=== PATIENT | female | born 1995 | race Caucasian/White ===

== ENCOUNTER → 2018-08-03 16:55 | Outpatient (CLI) | payer OTHER, SELFPAY ==
[2018-08-03 13:18] VITALS: BMI 24.3
[2018-08-03 21:55] LABS: Chlamydia Trachomatis by PCR Negative (Negative); Neisserai gonorrhoeae by PCR Negative (Negative); Probe Check PASS; Sample Adequacy Control PASS; Specimen Processing Control PASS
[2018-08-07 19:58] LABS: HPV Reflexed? NOT INDICATED
== END ==
PROVIDERS: Family Provider Family Medicine; PCP Family Medicine; Referring Provider Obstetrics & Gynecology; Visit Provider Obstetrics & Gynecology
DX: Z34.90 Encounter for supervision of normal pregnancy, unspecified, unspecified trimester (principal); Z12.4 Encounter for screening for malignant neoplasm of cervix
CPT/HCPCS: 87086; 87491; 87591; 87624; 88175; G0145

== ENCOUNTER → 2018-09-03 16:30 | Outpatient (CLI) | payer OTHER, SELFPAY ==
[2018-09-03 16:24] VITALS: BMI 24.3
[2018-09-03 17:13] LABS: Absolute Lymphocyte Count 2.16 X10^3/ul (0.83-4.51); Absolute Neutrophil Count 8.2 X10^3/uL (2.0-7.7); Basophil# 0.03 X10^3/uL; Basophil% 0.3 % (0-1); Eosinophils% 0.9 % (0-5); Hematocrit 36.8 % (37-47); Hemoglobin 12.2 g/dl (12.0-15.0); Lymphocyte # 2.16 X10^3/ul (4.0); Lymphocyte % 19.1 % (19-41); Mean Corp Hgb Conc 33.2 g/gl (32-36); Mean Corpuscular Hgb 28.5 pg (27.0-32.0); Mean Platelet Vol. 12.4 fl (6.2-12.0); Monocyte# 0.81 X10^3/uL; Monocyte% 7.2 % (0-10); Neutrophil # 8.16 X10^3/uL (2.7-7.7); Neutrophil % 72.1 % (47-70); Platelet Count 176 K/mm3 (150-450); RBC Distribution Width CV 13.4 % (11.6-14.6); RBC Distribution Width SD 41.2 fl (35.1-43.9); Red Blood Count 4.28 M/mm3 (4.2-5.4); White Blood Count 11.3 K/mm3 (4.4-11.0)
[2018-09-03 17:14] LABS: POSITIVE COUNT NO; POSITIVE DIFFERENTIAL NO; POSITIVE MORPHOLOGY NO
[2018-09-03 18:16] LABS: HIV - WCH Non-Reactive (Nonreactive); Rubella IgG 52.3 IU/mL
[2018-09-06 11:10] LABS: HEPATITIS B SURFACE AG Negative (Negative)
[2018-09-09 22:01] LABS: Rapid Plasmin Reagin (RPR) NONREACTIVE (NONREACTIVE)
== END ==
PROVIDERS: Family Provider Family Medicine; PCP Family Medicine; Referring Provider Obstetrics & Gynecology; Visit Provider Obstetrics & Gynecology
DX: Z34.82 Encounter for supervision of other normal pregnancy, second trimester (principal)
CPT/HCPCS: 36415; 85025; 86592; 86703; 86762; 86850; 86900; 87340

== ENCOUNTER → 2018-11-25 | Outpatient (CLI) | payer OTHER, SELFPAY ==
[2018-11-25 15:39] VITALS: BMI 24.3
[2018-11-25 16:24] LABS: Absolute Lymphocyte Count 1.95 X10^3/ul (0.83-4.51); Absolute Neutrophil Count 8.5 X10^3/uL (2.0-7.7); Basophil# 0.02 X10^3/uL; Basophil% 0.2 % (0-1); Eosinophil# 0.09 X10^3/uL; Eosinophils% 0.8 % (0-5); Hematocrit 34.4 % (37-47); Hemoglobin 11.4 g/dl (12.0-15.0); Lymphocyte # 1.95 X10^3/ul (4.0); Mean Corp Hgb Conc 33.1 g/gl (32-36); Mean Corpuscular Hgb 29.5 pg (27.0-32.0); Mean Corpuscular Volume 88.9 fL (81-99); Mean Platelet Vol. 12.6 fl (6.2-12.0); Monocyte# 0.87 X10^3/uL; Monocyte% 7.6 % (0-10); Platelet Count 150 K/mm3 (150-450); RBC Distribution Width CV 14.2 % (11.6-14.6); RBC Distribution Width SD 45.7 fl (35.1-43.9); Red Blood Count 3.87 M/mm3 (4.2-5.4); White Blood Count 11.5 K/mm3 (4.4-11.0)
[2018-11-25 16:25] LABS: POSITIVE COUNT NO; POSITIVE DIFFERENTIAL NO; POSITIVE MORPHOLOGY NO
[2018-11-25 16:52] LABS: ALB/GLOB Ratio 0.9 RATIO (0.9-2.4); AST(SGOT) 18 U/L (15-37); Alanine Aminotransfer ALT/SGPT 25 U/L (13-56); Alkaline Phosphatase 68 U/L (45-117); Anion Gap 5 (5-15); BUN 10 mg/dL (7-18); BUN/Creat Ratio 14.1 RATIO (10-20); Calcium,Total 8.8 mg/dL (8.5-10.1); Chloride 104 mmol/L (98-107); Creatinine, Serum 0.71 mg/dL (0.55-1.02); EST Glomerular Filtration Rate 108 mL/min (>60); Est Glom Filt Rate - Afr Amer 130 mL/min (>60); Globulin 3.5 g/dL (2.2-4.2); Glucose 83 mg/dL (74-106); Potassium 3.8 mmol/L (3.5-5.1); Protein, Total 6.5 g/dL (6.4-8.2); Sodium Level 134 mmol/L (136-145)
[2018-11-25 19:00] LABS: Protein, Urine (Random) < 6.0 mg/dL (<11.9); Protein:Creat Ratio 249 mg/g CRE (0-200)
== END | disposition home or self-care (01) ==
PROVIDERS: Family Provider Family Medicine; PCP Family Medicine; Referring Provider Nurse Practitioner Women's Health; Visit Provider Nurse Practitioner Women's Health
DX: O16.2 Unspecified maternal hypertension, second trimester (principal); Z3A.00 Weeks of gestation of pregnancy not specified
CPT/HCPCS: 36415; 80053; 82570; 84156; 85025

== ENCOUNTER → 2018-12-16 | Outpatient (CLI) | payer OTHER, SELFPAY ==
[2018-12-16 16:31] VITALS: BMI 24.3
--- NOTE | 2018-12-16 16:41 | EKG12_ITS ---
Test Reason : HIGH BP, Blood Pressure : / mmHG Vent. Rate : 078 BPM Atrial Rate : 078 BPM P-R Int : 122 ms QRS Dur : 138 ms QT Int : 410 ms P-R-T Axes : -15 057 -07 degrees QTc Int : 467 ms Sinus rhythm with Premature atrial complexes and Premature ventricular complexes or Fusion complexes Right bundle branch block T wave abnormality, consider inferior ischemia Abnormal ECG Confirmed by RICHMOND RODRIGES ([id number]), pictures editor ANA LUISA BAR ([id number]) on 12/22/2018 11:45:14 AM Referred By: Melida Alvarez Confirmed By:NORMA RODRIGES
[2018-12-16 17:14] LABS: Absolute Lymphocyte Count 1.51 X10^3/ul (0.83-4.51); Absolute Neutrophil Count 9.3 X10^3/uL (2.0-7.7); Basophil# 0.02 X10^3/uL; Basophil% 0.2 % (0-1); Eosinophil# 0.17 X10^3/uL; Eosinophils% 1.4 % (0-5); Hematocrit 35.3 % (37-47); Hemoglobin 11.7 g/dl (12.0-15.0); Lymphocyte # 1.51 X10^3/ul (4.0); Lymphocyte % 12.8 % (19-41); Mean Corp Hgb Conc 33.1 g/gl (32-36); Mean Corpuscular Hgb 29.1 pg (27.0-32.0); Mean Corpuscular Volume 87.8 fL (81-99); Mean Platelet Vol. 12.7 fl (6.2-12.0); Monocyte# 0.72 X10^3/uL; Monocyte% 6.1 % (0-10); Neutrophil # 9.27 X10^3/uL (2.7-7.7); Neutrophil % 78.7 % (47-70); POSITIVE COUNT NO; POSITIVE DIFFERENTIAL NO; POSITIVE MORPHOLOGY NO; Platelet Count 159 K/mm3 (150-450); RBC Distribution Width CV 13.5 % (11.6-14.6); RBC Distribution Width SD 42.3 fl (35.1-43.9); Red Blood Count 4.02 M/mm3 (4.2-5.4); White Blood Count 11.8 K/mm3 (4.4-11.0)
[2018-12-16 17:52] LABS: Glucose Challenge Gest 1H 50g 129 mg/dL (70-140)
== END | disposition home or self-care (01) ==
LOC: LAB 16:37
PROVIDERS: Family Provider Family Medicine; PCP Family Medicine; Referring Provider Obstetrics & Gynecology; Visit Provider Obstetrics & Gynecology
DX: O16.2 Unspecified maternal hypertension, second trimester (principal); Z3A.28 28 weeks gestation of pregnancy
CPT/HCPCS: 36415; 82950; 85025; 93005

== ENCOUNTER → 2019-01-14 | Outpatient (CLI) | payer OTHER, SELFPAY ==
[2018-12-16 16:31] VITALS: BMI 24.3
[2019-01-12 15:03] VITALS: BMI 29.2
--- NOTE | 2019-01-14 13:57 | US_ITS ---
STUDY: SECOND AND THIRD TRIMESTER OBSTETRICAL ULTRASOUND - LIMITED REASON FOR EXAM: Female, 23 years old. Growth PRIOR ULTRASOUND: None. TECHNIQUE: Transabdominal ultrasound evaluation was performed. FINDINGS: There is a single intrauterine fetus. The fetus is in a cephalic presentation. There is demonstrated cardiac activity with a heart rate of 144 bpm. There is a normal amniotic fluid volume. The largest amniotic fluid pocket measures 2.4 cm. The amniotic fluid index (FAISAL) is 8.04 cm. The placenta is posterior in location and is not low lying. There are Grade 0 placental changes. The cervix is closed and measures 4.8 cm in length. BIOMETRY: BPD: 8.32 cm: 33 weeks, 4 days HC: 31.14 cm: 34 weeks, 6 days AC: 29.38 cm: 33 weeks, 3 days FL: 6.21 cm: 32 weeks, 2 days Age by LMP: 32 weeks, 3 days. SUSANA by LMP: 03/08/2019. age by current US: 33 weeks, 4 days. SUSANA by current US: 02/28/2019. Estimated weight: 2138 grams, +/- 312 grams, 64 percentile. US/OB Limited With Biometrics IMPRESSION: Single live intrauterine gestation at approximately 33 weeks and 4 days based on the current ultrasound. Electronically Signed: Jacob Montero, at 15:47 EDT Tel , Service support ,
== END | disposition home or self-care (01) ==
LOC: OPUS 13:56
PROVIDERS: Family Provider Family Medicine; PCP Family Medicine; Referring Provider Obstetrics & Gynecology; Visit Provider Obstetrics & Gynecology
DX: Z34.93 Encounter for supervision of normal pregnancy, unspecified, third trimester (principal)
CPT/HCPCS: 76816

== ENCOUNTER → 2019-01-21 | Outpatient (CLI) | payer OTHER, SELFPAY ==
[2018-12-16 16:31] VITALS: BMI 24.3
[2019-01-14 15:03] VITALS: BMI 29.2
--- NOTE | 2019-01-21 13:58 | US_ITS ---
HISTORY: FAISAL only. Hypertension. No biometrics. 25 images. Comparison study was from January 14, 2019. Findings: The cervix is closed at 5.2 cm. Presentation is cephalic. Placenta is posterior fundal. heart motion is detected by M-mode imaging at 123 bpm. FAISAL is 14.6 cm. US/OB Limited (No Biometrics) IMPRESSION: Single living intrauterine gestation. Adequate FAISAL. Cephalic presentation. at 0024 Reported and signed by: Bryce Gutierrez MD Electronically Signed: Bryce Gutierrez MD at 0:23 EDT Tel , Service support ,
== END | disposition home or self-care (01) ==
PROVIDERS: Family Provider Family Medicine; PCP Family Medicine; Referring Provider Obstetrics & Gynecology; Visit Provider Obstetrics & Gynecology
DX: O16.9 Unspecified maternal hypertension, unspecified trimester (principal); Z3A.00 Weeks of gestation of pregnancy not specified
CPT/HCPCS: 76815

== ENCOUNTER → 2019-01-28 | Outpatient (CLI) | payer OTHER, SELFPAY ==
[2018-12-16 16:31] VITALS: BMI 24.3
[2019-01-21 15:11] VITALS: BMI 29.2
--- NOTE | 2019-01-28 13:30 | US_ITS ---
STUDY: SECOND AND THIRD TRIMESTER OBSTETRICAL ULTRASOUND - LIMITED REASON FOR EXAM: Female, 24 years old. Evaluation of well-being. PRIOR ULTRASOUND: January 21, 2019 TECHNIQUE: Transabdominal real-time exam with hardin scale image documentation. TECHNICAL QUALITY: Adequate. FINDINGS: There is a single intrauterine fetus. The fetus is in a cephalic presentation. There is demonstrated cardiac activity with a heart rate of 147 bpm. There is a normal amniotic fluid volume. The largest amniotic fluid pocket measures 5.4 cm. The amniotic fluid index (FAISAL) is 15.9 cm. The placenta is posterior and not low-lying. There are Grade 2 placental changes. The cervix measures 3 cm in length. Age by LMP: 34 weeks, 3 days. SUSANA by LMP: 03/08/2019. US/OB Limited (No Biometrics) IMPRESSION: Amniotic fluid index of 15.9 cm. Prior amniotic fluid index of 14.6. Single fetus in cephalic presentation with a heart rate of 147 bpm. Grade 2, posterior low-lying placenta with a cervical length of 3 cm Electronically Signed: Daphney Shelby MD at 22:12 EDT , Service support ,
== END | disposition home or self-care (01) ==
PROVIDERS: Family Provider Family Medicine; PCP Family Medicine; Referring Provider Obstetrics & Gynecology; Visit Provider Obstetrics & Gynecology
DX: Z36.89 Encounter for other specified antenatal screening (principal)
CPT/HCPCS: 76815

== ENCOUNTER → 2019-02-04 | Outpatient (CLI) | payer OTHER, SELFPAY ==
[2018-12-16 16:31] VITALS: BMI 24.3
[2019-02-04 13:21] VITALS: BMI 29.2
--- NOTE | 2019-02-04 13:59 | US_ITS ---
STUDY: SECOND AND THIRD TRIMESTER OBSTETRICAL ULTRASOUND - LIMITED REASON FOR EXAM: Female, 24 years old. FAISAL LMP: 06/01/2018 PRIOR ULTRASOUND: 01/28/2019 TECHNIQUE: Transabdominal TECHNICAL QUALITY: Adequate. FINDINGS: There is a single intrauterine fetus. The fetus is in a cephalic presentation. There is demonstrated cardiac activity with a heart rate of 140 bpm. There is a normal amniotic fluid volume. The largest amniotic fluid pocket measures 3.9 cm. The amniotic fluid index (FAISAL) is 11.2 cm. The placenta is posterior in location and is not low lying. There are Grade 2 placental changes. The cervix measures 5.0 cm in length. BIOMETRY: Not performed Age by LMP: 35 weeks, 3 days. SUSANA by LMP: 03/08/2019. age by prior US: 36 weeks, 4 days. SUSANA by prior US: 02/28/2019. US/OB Limited (No Biometrics) IMPRESSION: Cervix is closed. Positive cardiac activity. Normal amniotic fluid volume. Normal placenta. Electronically Signed: Jmaie Parker MD at 17:29 EDT Tel , Service support ,
== END | disposition home or self-care (01) ==
LOC: OPUS 13:55
PROVIDERS: Family Provider Family Medicine; PCP Family Medicine; Referring Provider Obstetrics & Gynecology; Visit Provider Obstetrics & Gynecology
DX: Z36.89 Encounter for other specified antenatal screening (principal)
CPT/HCPCS: 76815

== ENCOUNTER → 2019-02-11 | Outpatient (CLI) | payer OTHER, SELFPAY ==
[2018-12-16 16:31] VITALS: BMI 24.3
[2019-02-11 13:16] VITALS: BMI 31.0
--- NOTE | 2019-02-11 14:14 | US_ITS ---
STUDY: SECOND AND THIRD TRIMESTER OBSTETRICAL ULTRASOUND - LIMITED REASON FOR EXAM: Female, 24 years old. Evaluation for amniotic fluid index. PRIOR ULTRASOUND: February 04, 2019 TECHNIQUE: Transabdominal real-time exam with hardin scale image documentation. TECHNICAL QUALITY: Adequate. FINDINGS: There is a single intrauterine fetus. The fetus is in a cephalic presentation. There is demonstrated cardiac activity with a heart rate of 139 bpm. There is a normal amniotic fluid volume. The largest amniotic fluid pocket measures 6.1 cm. The amniotic fluid index (FAISAL) is 16.1 cm. The placenta is posterior and not low lying. There are Grade 2 placental changes. The cervix is not visualized. US/OB Limited (No Biometrics) IMPRESSION: Amniotic fluid index of 16.1 cm. Electronically Signed: Daphney Shelby MD at 19:24 EDT , Service support ,
== END | disposition home or self-care (01) ==
LOC: OPUS 14:11
PROVIDERS: Family Provider Family Medicine; PCP Family Medicine; Referring Provider Obstetrics & Gynecology; Visit Provider Obstetrics & Gynecology
DX: Z34.90 Encounter for supervision of normal pregnancy, unspecified, unspecified trimester (principal)
CPT/HCPCS: 76815; 87081

== ENCOUNTER → 2019-02-16 | Outpatient (CLI) | payer OTHER, SELFPAY ==
[2018-12-16 16:31] VITALS: BMI 24.3
[2019-02-11 13:16] VITALS: BMI 31.0
--- NOTE | 2019-02-16 14:02 | US_ITS ---
STUDY: SECOND AND THIRD TRIMESTER OBSTETRICAL ULTRASOUND-Limited REASON FOR EXAM: Female, 24 years old. Routine survey. LMP: Unknown. TECHNIQUE: Transabdominal TECHNICAL QUALITY: Adequate. PRIOR ULTRASOUND: None. FINDINGS: There is a single intrauterine fetus. The fetus is in a cephalic presentation. There is demonstrated cardiac activity with a heart rate of 128 bpm. There is a normal amniotic fluid volume. The largest amniotic fluid pocket measures 5.5 cm. The amniotic fluid index (FAISAL) is 16 cm. The placenta is posterior in location and is not low lying. There are Grade 2 placental changes. The cervix measures 2.1 cm in length. The bilateral adnexal regions are normal. BIOMETRY: BPD: 9.4 cm: 38 weeks, 1 days HC: 34.5 cm: 40 weeks, 0 days AC: 34.5 cm: 38 weeks, 3 days FL: 7.4 cm: 38 weeks, 0 days age by current US: 38 weeks, 5 days. SUSANA by current US: 02/25/2019. Estimated weight: 3493 grams, +/- 510 grams, 87 %. age by prior US: 38 weeks, 2 days. SUSANA by prior US: 02/28/2019. Age by LMP: 37 weeks, 1 days. SUSANA by LMP: 03/08/2019. US/OB Limited With Biometrics IMPRESSION: Single live intrauterine at 38 weeks, 5 days by current ultrasound with SUSANA of 02/25/2019. Heart rate at 128 bpm. Normal growth noted since the previous study, no suspicious sonographic findings Electronically Signed: Michael Dunn MD at 15:07 EDT , Service support ,
== END | disposition home or self-care (01) ==
LOC: OPUS 14:01
PROVIDERS: Family Provider Family Medicine; PCP Family Medicine; Referring Provider Obstetrics & Gynecology; Visit Provider Obstetrics & Gynecology
DX: O16.9 Unspecified maternal hypertension, unspecified trimester (principal); Z3A.00 Weeks of gestation of pregnancy not specified
CPT/HCPCS: 76816

== ENCOUNTER → 2019-02-18 | Outpatient (CLI) | payer OTHER, SELFPAY ==
[2019-01-28 14:24] VITALS: BMI 29.2
[2019-02-16 14:35] VITALS: BMI 31.0
--- NOTE | 2019-02-18 15:17 | ECHOD_ITS ---
Reason For Study: ABN EKG Procedure This was a 2D Doppler, Color Flow transthoracic echocardiogram. Exam performed in department. Left Ventricle Normal size and thickness. The estimated ejection fraction is 55 %. No evidence for diastolic dysfunction. No regional wall motion abnormalities noted. Right Ventricle Normal RV size. Normal systolic function. Atria Normal left atrium. Normal right atrium. Mitral Valve There is no mitral valve stenosis. No mitral valve insufficiency. Tricuspid Valve There is no tricuspid stenosis. Mild to moderate (1-2+) tricuspid valve insufficiency. Pulmonary artery systolic pressure is 30 mmHg. Aortic Valve Trisinus/trileaflet aortic valve. There is no aortic stenosis. Trivial aortic valve insufficiency. Pulmonic Valve There is no pulmonic valvular stenosis. No pulmonic valve insufficiency. Great Vessels Normal aortic root. Pericardium/Pleural No pericardial effusion. MMode/2D Measurements & Calculations LVIDd: 5.1 cm IVSd: 1.00 cm Ao root diam: 2.8 cm LVIDs: 3.5 cm LVPWd: 1.00 cm RVDd: 3.6 cm FS: 32.0 % LAV(MOD-bp): 46.2 ml LVAd ap4: 38.8 cm2 SV(MOD-sp4): 87.7 ml LAV(MOD-bp) Indexed: 22.8 ml/m2 EDV(MOD-sp4): 137.9 ml LAV(MOD-sp2): 40.8 ml EDV(sp4-el): 143.2 ml LAV(MOD-sp4): 46.8 ml LVAs ap4: 20.9 cm2 ESV(MOD-sp4): 50.3 ml ESV(sp4-el): 50.9 ml EF(MOD-sp4): 63.6 % EF(sp4-el): 64.4 % SV(sp4-el): 92.3 ml LA A4 area: 16.7 cm2 LA dimension(2D): 3.7 cm RA A4 area: 11.1 cm2 Time Measurements MV dec time: 0.26 sec Doppler Measurements & Calculations MV E max delmer: 87.3 cm/sec Lat Peak E' Delmer: 13.4 cm/sec Med Peak E' Delmer: 11.0 cm/sec MV A max delmer: 61.6 cm/sec E/E' lat: 6.5 E/E' med: 8.0 MV E/A: 1.4 Ao V2 max: 184.0 cm/sec LV V1 max: 116.2 cm/sec TR max delmer: 248.7 cm/sec Ao max P.6 mmHg LV V1 max P.4 mmHg TR max P.8 mmHg Interpretation Summary The estimated ejection fraction is 55 %. No evidence for diastolic dysfunction. Mild to moderate (1-2+) tricuspid valve insufficiency. Pulmonary artery systolic pressure is 30 mmHg. Trivial aortic valve insufficiency. Ordering Physician: Natanael Cee Referring Physician: YUDY AGEE Performed By: Yvonne Salgado, SANDRA, RVT
== END | disposition home or self-care (01) ==
LOC: CVS 15:16
PROVIDERS: Family Provider Family Medicine; PCP Family Medicine; Referring Provider Specialist; Visit Provider Specialist
DX: R94.31 Abnormal electrocardiogram [ECG] [EKG] (principal)
CPT/HCPCS: 93306

== ENCOUNTER 2019-02-22 07:00 | Inpatient (IN) | payer OTHER, SELFPAY ==
[2019-02-04 13:21] VITALS: BMI 29.2
[2019-02-16 14:35] VITALS: BMI 31.0
[2019-02-22 10:41] VITALS: BMI 32.3
[2019-02-22] MEDS: Lactated Ringers 1,000 ML 50 ML IV ×2 (13:25→19:08)
[2019-02-22 13:44] LABS: Absolute Lymphocyte Count 1.51 X10^3/uL (0.83-4.51); Absolute Neutrophil Count 6.2 X10^3/uL (2.0-7.7); Basophil# 0.02 X10^3/uL; Basophil% 0.2 % (0-1); Eosinophil# 0.08 X10^3/uL; Eosinophils% 0.9 % (0-5); Hematocrit 36.6 % (37-47); Hemoglobin 12.4 g/dL (12.0-15.0); Lymphocyte # 1.51 X10^3/ul (4.0); Lymphocyte % 17.8 % (19-41); Mean Corp Hgb Conc 33.9 g/dL (32-36); Mean Corpuscular Hgb 29.7 pg (27.0-32.0); Mean Corpuscular Volume 87.8 fL (81-99); Mean Platelet Vol. 14.1 fl (6.2-12.0); Monocyte# 0.63 X10^3/uL; Monocyte% 7.4 % (0-10); NRBC Flagged by Analyzer 0 % (0-5); Neutrophil # 6.21 X10^3/uL (2.7-7.7); Neutrophil % 73.2 % (47-70); Platelet Count 112 K/mm3 (150-450); RBC Distribution Width SD 41.3 fl (35.1-43.9); Red Blood Count 4.17 M/mm3 (4.2-5.4); White Blood Count 8.5 K/mm3 (4.4-11.0)
[2019-02-22] MEDS: Oxytocin 30 units/NS 500 ml 30 UNITS/500 ML IV.SOLN IV (13:51)
[2019-02-22] MEDS: 0.9% Normal Saline 100 ML IV.SOLN. INTRA-UTER (15:08)
[2019-02-22 19:02] LABS: Platelet Count 120 K/mm3 (150-450)
[2019-02-22] MEDS: fentaNYL-bupivacaine (epidural) 100 ML BAG EPIDURAL ×2 (19:30→22:56)
--- NOTE | 2019-02-23 03:02 | PCM.HPOB.BLA ---
- Problem List (1) Abnormal EKG Status: Acute Comment: s/p cardiology consult, echo planned (2) Hypertension affecting Status: Acute Qualifiers: Comment: 11/25/18 Pre E labs nl, started around 20 weeks, labetalol 100 mg bid, weekly nsts and faisal after 32, plan IOL 38 weeks. growth q 4 weeks. FAISAL and growth normal (3) Status: Acute Qualifiers: Comment: carrier screening declined, NIPT- low risk. afp declined. anatomy scan ordered with normal results (4) Supervision of normal Status: Acute Qualifiers: Comment: PRR SUSANA 03/08/19 Esdras, gender surprise History and Physical Date of Admission: 02/22/19 Intake Vital Signs 02/16/19 Body Mass Index (BMI) 31.0 02/16/19 Height 5 ft 7 in 02/16/19 Weight: 201 lb 02/16/19 Body Mass Index (BMI) 31.4 02/16/19 Blood Pressure 134/70 H Intake Visit Reasons: 37 WEEK OB/NST Chief Complaint: et ob,nst Identification Technician Required: No Is patient in pain?: No Allergies codeine Allergy (Intermediate, Verified 02/16/19 14:34) cramps Sulfa (Sulfonamide Antibiotics) Allergy (Mild, Verified 02/16/19 14:34) Other Medications vitamin,calcium,fsugaijb-jqdb-xycxk acid tablet 1 tab PO QDAY 03/16/18 [History Confirmed 02/16/19] labetalol 100 mg tablet 100 mg PO BID #60 tab 12/16/18 [Rx Confirmed 02/16/19] Last Menstral Period: 02/21/18 Zika: Zika virus screening: Negative : No PFSH PFSH Medical History Hypertension affecting (Acute) Surgical History History of removal of cyst (Resolved ~2013) Family History Mother Hyperlipidemia Father Hyperlipidemia Social History (Updated 02/17/19 @ 18:29 by Melida Alvarez MD) Smoking Status: Never smoker alcohol intake: never substance use type: does not use caffeine: No what type of physical activity do you participate in: none seatbelt use: always do you feel safe at home: Yes additional social history: Esdras- [employer] 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 plan IOL at 38 weeks if no spontaneous labor due to hypertension. OB Visit SUSANA Calculator Estimated Delivery Date Method Current WG Current Estimate 03/08/19 LMP (Certain) 37w 2d Expected Delivery Route/Plan Specific Issue/Plans flu vaccine: no tdap vaccine: given rhogam: na LARC form signed: howard labor support person: Esdras pain management: epidural cut cord/dad catch: cord : yes PP control planned: condom special requests: [] Initial Weight: 155 lb Date EGA Weight BP Urine Prot Glucose FHR FuHt Pres Mov CTX Dilation Effaced St Visit Note 09/03/18 13w 3d 158 lb (+3 lb) 118/68 Negative Negative 145 no vb cramping nipt today 09/30/18 17w 2d 165 lb (+10 lb) 126/72 Negative Negative 141 No VB, LOF 10/29/18 21w 3d 170 lb (+15 lb) 150/60 140 22 no vb lofgood fm no regular ctx 11/25/18 25w 2d 179 lb 4 oz (+24 lb 4 oz) 144/80 Negative Negative 162 25 Active absent NO VB, LOF, headache. Good FM. 12/16/18 28w 2d 183 lb (+28 lb) 156/80 136/64 Negative Negative 140 29 reviewed home bps start labetalol 100mgbid no vb lof good fm no regualr ctx reviewed bp precautions and preeclampsia precautions 12/24/18 29w 3d 184 lb (+29 lb) 140/72 Negative Negative 140 30 Active no vb lof good fm n oregular ctx, bps well controlled 01/14/19 32w 3d 189 lb 6 oz (+34 lb 6 oz) 142/78 Negative Negative 130 32 Active no vb lof good fm no regular ctx. bps all within normal limit at home. s/p cardio consult echo planned 01/21/19 33w 3d 190 lb 4 oz (+35 lb 4 oz) 136/70 Negative Negative 130 Active No VB, LOF. Doing well. No headaches 01/28/19 34w 3d 195 lb (+40 lb) 112/72 Negative Negative 150 34 Active Doing well. No VB, LOF. Good FM. No headaches 02/04/19 35w 3d 195 lb (+40 lb) 116/82 130 Active no vb lof good fm no regular ctx 02/11/19 36w 3d 198 lb (+43 lb) 138/80 148/84 Negative Negative 130 Visit Notes Visit Date: 02/11/19 ??No visit notes to display Visit Date: 02/04/19 ??no vb lof good fm no regular ctx ??Melida Alvarez MD on 02/04/19 Visit Date: 01/28/19 ??Doing well. No VB, LOF. Good FM. No headaches ??CARLOS Olvera on 01/28/19 Visit Date: 01/21/19 ??No VB, LOF. Doing well. No headaches ??CARLOS Olvera on 01/21/19 Visit Date: 01/14/19 ??no vb lof good fm no regular ctx. bps all within normal limit at home. s/p cardio consult echo planned ??Melida Alvarez MD on 01/14/19 Visit Date: 12/24/18 ??no vb lof good fm n oregular ctx, bps well controlled ??Melida Alvarez MD on 12/24/18 Visit Date: 12/16/18 ??reviewed home bps start labetalol 100mgbid no vb lof good fm no regualr ctx reviewed bp precautions and preeclampsia precautions ??Melida Alvarez MD on 12/16/18 Visit Date: 11/25/18 ??NO VB, LOF, headache. Good FM. ??CARLOS Olvera on 11/25/18 Visit Date: 10/29/18 ??no vb lofgood fm no regular ctx ??Melida Alvarez MD on 10/29/18 Visit Date: 09/30/18 ??No VB, LOF ??CARLOS Olvera on 09/30/18 Visit Date: 09/03/18 ??no vb cramping nipt today ??Melida Alvarez MD on 09/03/18 ACOG First Trimester First Trimester: Desire for , Alcohol, Tobacco Cessation, Illicit/Recreational Drug/Substance Use, Intimate Partner Violence, Barriers to care, Unstable Housing, Communication Barriers, Environmental/Work Hazards, Anticipated Course of Care, Toxoplasmosis Precations, Use of Any medications, Sexual activity, Exercise, Dental Care, Sauna/Hot tub use, Seat Belt use, Childbirth classes/Hospital facilities, , Travel, Indications for US and Screening for Aneuploidy Diagnostics Diagnostics Labs Obstetrics Ultrasound 02/16/19 Details: HIV: Urine Culture: Sequential Screen: NIPT Screen: Results [id number] Office Urine Glucose Negative Last Edit by Barb Arriaza on 02/16/19 14:40 Office Urine Protein Negative Last Edit by Barb Arriaza on 02/16/19 14:40 Assessment & Plan Problems 1. Abnormal EKG R94.31 2. Hypertension affecting in third trimester O16.3 3. 35 weeks gestation of Z3A.35 4. Encounter for supervision of normal first in third trimester Z34.03 Plan movement and labor precautions reviewed. ACOG trimester education reviewed and updated. see problem list details for updated plan management information and see below for orders placed at this visit. GA appropriate handout given. plan IOL pitocin and jacinto bulb, epi PRN Orders Orders: OB NST 02/16/19 O16.3 POC Urinalysis 2 Dip (Clinic) 02/16/19 Coding Level of Care Code OB Routine Diagnoses Abnormal EKG R94.31 Hypertension affecting in third trimester O16.3 ??Trimester: third trimester 35 weeks gestation of Z3A.35 ??Weeks of gestation: 35 weeks Encounter for supervision of normal first in third trimester Z34.03 ??Normal : normal first ??Trimester: third trimester UPDATE- I have seen the patient and performed any clinically relevant updates to the history and physical exam. Melida Alvarez MD
--- NOTE | 2019-02-23 03:02 | PCM.PN.BLA ---
Progress Note fht 140 moderate variability reactive no decelerations category I tracing [place]: regular patient comfortable with epidural arom clear fluid a/p exp management pit per protocol
[2019-02-23] MEDS: Lactated Ringers 1,000 ML 50 ML IV ×2 (03:03→07:06)
[2019-02-23] MEDS: fentaNYL-bupivacaine (epidural) 100 ML BAG EPIDURAL ×2 (03:46→08:44)
[2019-02-23] MEDS: Labetalol 100 MG Tablet PO ×2 (08:03→22:07)
[2019-02-23] MEDS: Ondansetron 4 MG/2 ML Vial IV (09:24)
[2019-02-23] MEDS: Oxytocin 30 units/NS 500 ml 30 UNITS/500 ML IV.SOLN 334 UNITS IV (10:38)
--- NOTE | 2019-02-23 10:45 | PCM.OPRPT ---
Problem List (1) Abnormal EKG Status: Acute Comment: s/p cardiology consult, echo planned (2) Hypertension affecting Status: Acute Qualifiers: Comment: 11/25/18 Pre E labs nl, started around 20 weeks, labetalol 100 mg bid, weekly nsts and faisal after 32, plan IOL 38 weeks. growth q 4 weeks. FAISAL and growth normal (3) Status: Acute Qualifiers: Comment: carrier screening declined, NIPT- low risk. afp declined. anatomy scan ordered with normal results (4) Supervision of normal Status: Acute Qualifiers: Comment: PRR SUSANA 03/08/19 Esdras, gender surprise Vaginal Delivery Maternal Presentation: Medically Indicated Induction iol chtn 38 weeks Method of Induction: Pitocin, Ricardo Bulb Amniotic Membrane Rupture Type: Artificial Amniotic Fluid Description: Clear Final SUSANA: 03/08/19 Gestational age: 38 Weeks and 1 Days Date of Procedure: 02/23/19 Pre-Operative Diagnosis: iol chtn Post-Operative Diagnosis: same Surgery/ Procedure Performed: Spontaneous Vaginal Delivery Type of Anesthesia: Epidural Description of Procedure: Patient began pushing and delivered the head in the ELLEN presentation. The head was delivered atraumatically . The anterior and posterior shoulders delivered without complication followed by the rest of the infant and the infant was placed on the maternal abdomen. Delayed cord clamping was employed for approximately 60 seconds. Cord was clamped and cut and gentle traction was applied to the cord and the placenta delivered spontaneously immediately following it was noted to be intact with three-vessel cord. The perineum and vagina were inspected and noted to have a small first-degree perineal laceration repaired in the usual fashion with 3-0 Vicryl repeat. EBL was 200 cc. Patient and tolerated delivery well. Presentation: ELLEN Placental Delivery Description: Spontaneous Placenta Disposition: [facility] Cord Vessel Description: 3 Vessels Cord Entanglement: None Estimated Blood Loss: 200 Infant A gender: Male Episiotomy Description: None Laceration: Perineal Extension/lac, 1st degree Medications given after delivery: IV Pitocin Complications: None
[2019-02-23] MEDS: Oxytocin 30 units/NS 500 ml 30 UNITS/500 ML IV.SOLN 167 UNITS IV (11:08)
[2019-02-23] MEDS: Naproxen 250 MG Tablet 500 MG PO (11:34)
[2019-02-23] MEDS: 0.9% Saline Lock 10 ML Syringe IV (12:18)
[2019-02-23 12:57] LABS: Hematocrit 38.7 % (37-47); Hemoglobin 12.9 g/dL (12.0-15.0); Mean Corp Hgb Conc 33.3 g/dL (32-36); Mean Corpuscular Hgb 29.3 pg (27.0-32.0); Mean Platelet Vol. 13.8 fl (6.2-12.0); Platelet Count 124 K/mm3 (150-450); RBC Distribution Width CV 12.8 % (11.6-14.6); RBC Distribution Width SD 41.3 fl (35.1-43.9); White Blood Count 23.1 K/mm3 (4.4-11.0)
[2019-02-23 15:30] VITALS: BP 135/85; PULSE 70; RESP 18; TEMP 37.1; O2SAT 96
--- NOTE | 2019-02-23 20:02 | NURSING ---
Called anesthesia about removing epidural catheter due to low platelets. Labs reviewed. Cleared to removed epidural catheter as long as no bleeding from site. Removed epidural. Blue catheter tip intact. Patient tolerated well. Patient ambulated to bathroom to void, assistance x1. Gait steady. Bed linens changed.
[2019-02-23 20:30] VITALS: BP 137/87; PULSE 80; RESP 18; TEMP 36.4; O2SAT 97
[2019-02-23 22:07] VITALS: BP 123/70
[2019-02-24 01:00] VITALS: BP 130/70; PULSE 72; RESP 18; TEMP 36.4; O2SAT 100
[2019-02-24 05:10] VITALS: BP 124/71; PULSE 78; RESP 18; TEMP 36; O2SAT 97
[2019-02-24 08:00] VITALS: BP 123/65; PULSE 71; RESP 16; TEMP 36.6; O2SAT 97
--- NOTE | 2019-02-24 08:00 | PCM.PN.OB ---
Subjective: doing well no complaints pain controlled no CP SOB N V ambulating well tolerating po lochia moderate, going well - Physical Exam General: Alert, Oriented x3 Abdomen: Soft, Non Tender, - - FF below U Vital Signs Temp Pulse Resp BP Pulse Ox 96.8 F L 78 18 124/71 H 97 02/24/19 05:10 02/24/19 05:10 02/24/19 05:10 02/24/19 05:10 02/24/19 05:10 Oxygen Delivery Method Room Air Weight: 206 lb 2.115 oz Body Mass Index (BMI) 32.3 Intake and Output for Last 24 Hours 02/22/19 02/23/19 02/24/19 23:59 23:59 23:59 Intake Total 1700 / 1700 2100 / 2100 Output Total 600 / 600 2425 / 2425 Balance 1100 / 1100 -325 / -325 Laboratory Tests Past 24 Hrs 02/23/19 12:45 WBC 23.1 H RBC 4.40 Hgb 12.9 Hct 38.7 MCV 88.0 MCH 29.3 MCHC 33.3 RDW Std Deviation 41.3 RDW Coeff of Cecy 12.8 Plt Count 124 L MPV 13.8 H Medical Necessity - Tobacco Use Smoking Status: Never smoker Assessment/Plan All Active Problems (Last Reviewed 02/16/19 @ 14:35 by Barb Arriaza) Abnormal EKG (Acute) Hypertension affecting (Acute) (Acute) Supervision of normal (Acute) s/p PPD # 1 1. routine post delivery care 2. breast feeding- support given 3. rh positive 4. rubella immune 5. BP wnl
--- NOTE | 2019-02-24 08:02 | DCINST_ITS ---
Additional Instructions: If you experience any of the following, contact your healthcare provider. * Bleeding that soaks a pad every hour for 2 hours * Fever 100.4 or higher * Unrelieved incision or abdominal pain * Swelling, redness, discharge or bleeding from your incision or episiotomy site * Your incision begins to separate * Problems urinating (including inability to urinate or burning while urinating). * Visual changes * Severe headache * Flu-like symptoms * Pain or redness in one of both of your breasts * Pain, warmth, tenderness or swelling in your legs, especially the calf area * Frequent nausea and vomiting * Symptoms of depression or anxiety If you experience any of the following, call 911 or go to the nearest Emergency Room. * Chest pain * Problems breathing * Seizure activity * Partial or complete paralysis of a body part, slurred speech, weakness or drooping of the face, or a sudden inability to walk or hold your balance Allergies/Adverse Reactions: Allergies codeine Allergy (Intermediate, Verified 02/22/19 10:42) Nausea as a child Sulfa (Sulfonamide Antibiotics) Allergy (Mild, Verified 02/22/19 10:42) Nausea Medications to take at Discharge vitamin,calcium,ldquxrno-jcxa-nxqfj acid tablet 1 tab PO QDAY 03/16/18 Labetalol [Trandate (Beta Maria Elena)] 100 mg PO BID 02/22/19 Primary Care Physician: Saad Rosales [Primary Care Provider] - Test Results: Test results from this visit will be discussed in further detail at your follow- up appointment, if applicable.
--- NOTE | 2019-02-24 08:02 | PCM.DCVAG ---
Additional Instructions: If you experience any of the following, contact your healthcare provider. Bleeding that soaks a pad every hour for 2 hours Fever 100.4 or higher Unrelieved incision or abdominal pain Swelling, redness, discharge or bleeding from your incision or episiotomy site Your incision begins to separate Problems urinating (including inability to urinate or burning while urinating). Visual changes Severe headache Flu-like symptoms Pain or redness in one of both of your breasts Pain, warmth, tenderness or swelling in your legs, especially the calf area Frequent nausea and vomiting Symptoms of depression or anxiety If you experience any of the following, call 911 or go to the nearest Emergency Room. Chest pain Problems breathing Seizure activity Partial or complete paralysis of a body part, slurred speech, weakness or drooping of the face, or a sudden inability to walk or hold your balance Allergies/Adverse Reactions: Allergies codeine Allergy (Intermediate, Verified 02/22/19 10:42) Nausea as a child Sulfa (Sulfonamide Antibiotics) Allergy (Mild, Verified 02/22/19 10:42) Nausea Medications to take at Discharge vitamin,calcium,fwauxlbk-mwsj-oaadc acid tablet 1 tab PO QDAY 03/16/18 Labetalol [Trandate (Beta Maria Elena)] 100 mg PO BID 02/22/19 Primary Care Physician: Saad Rosales [Primary Care Provider] - Test Results: Test results from this visit will be discussed in further detail at your follow-up appointment, if applicable.
[2019-02-24] MEDS: Labetalol 100 MG Tablet PO ×2 (09:34→22:06)
[2019-02-24 14:15] VITALS: BP 129/75; PULSE 76; RESP 16; TEMP 36.7; O2SAT 99
[2019-02-24] MEDS: Senna/Docusate Sodium 1 Tablet PO (17:34)
[2019-02-24 22:07] VITALS: BP 130/71; PULSE 74; RESP 16; TEMP 36.6; O2SAT 98
[2019-02-25 01:38] VITALS: BP 128/69; PULSE 72; RESP 16; TEMP 37; O2SAT 97
[2019-02-25 09:27] VITALS: BP 146/71; PULSE 88; RESP 16; TEMP 36.9; O2SAT 98
[2019-02-25] MEDS: Labetalol 100 MG Tablet PO (10:30)
--- NOTE | 2019-02-25 12:33 | PCM.PN.OB ---
Subjective: doing well no complaints pain controlled no CP SOB N V ambulating well tolerating po lochia moderate, going well - Physical Exam General: Alert, Oriented x3 Vital Signs Temp Pulse Resp BP Pulse Ox 98.4 F 88 16 146/71 H 98 02/25/19 09:27 02/25/19 09:27 02/25/19 09:27 02/25/19 09:27 02/25/19 09:27 Oxygen Delivery Method Room Air Weight: 206 lb 2.115 oz Body Mass Index (BMI) 32.3 Intake and Output for Last 24 Hours 02/23/19 02/24/19 02/25/19 23:59 23:59 23:59 Intake Total 2100 / 2100 Output Total 2425 / 2425 Balance -325 / -325 Medical Necessity - Tobacco Use Smoking Status: Never smoker Assessment/Plan All Active Problems (Last Reviewed 02/16/19 @ 14:35 by Barb Arriaza) Abnormal EKG (Acute) Hypertension affecting (Acute) (Acute) Supervision of normal (Acute) s/p PPD # 2 1. routine post delivery care 2. breast feeding- support given 3. rh positive 4. rubella immune
--- NOTE | 2019-02-25 12:41 | DCINST_ITS ---
Discharge Diet: No Restrictions Discharge Activity: Return to Normal Activity, May not drive while taking narcotic pain medications., May Shower May resume sexual activity in: 4-6 weeks Call your doctor if your incision/area has: Continuous Slow Oozing, Sudden Increased Bleeding, Increased Pain/ Swelling, Increased Redness, Foul Smelling Discharge Additional Instructions: If you experience any of the following, contact your healthcare provider. * Bleeding that soaks a pad every hour for 2 hours * Fever 100.4 or higher * Unrelieved incision or abdominal pain * Swelling, redness, discharge or bleeding from your incision or episiotomy site * Your incision begins to separate * Problems urinating (including inability to urinate or burning while urinating). * Visual changes * Severe headache * Flu-like symptoms * Pain or redness in one of both of your breasts * Pain, warmth, tenderness or swelling in your legs, especially the calf area * Frequent nausea and vomiting * Symptoms of depression or anxiety If you experience any of the following, call 911 or go to the nearest Emergency Room. * Chest pain * Problems breathing * Seizure activity * Partial or complete paralysis of a body part, slurred speech, weakness or drooping of the face, or a sudden inability to walk or hold your balance Allergies/Adverse Reactions: Allergies codeine Allergy (Intermediate, Verified 02/22/19 10:42) Nausea as a child Sulfa (Sulfonamide Antibiotics) Allergy (Mild, Verified 02/22/19 10:42) Nausea Medications to take at Discharge vitamin,calcium,blmimrhw-dkqq-ikzuz acid tablet 1 tab PO QDAY 03/16/18 Labetalol [Trandate (Beta Maria Elena)] 100 mg PO BID 02/22/19 Please Follow Up With: Melida Alvarez MD - [phone] When: Call to make an appointment with your doctor in 6 weeks. If you had elevated Blood pressure or 4th degree laceration you will need to be seen in 2 weeks. Primary Care Physician: Saad Rosales [Primary Care Provider] - Test Results: Test results from this visit will be discussed in further detail at your follow- up appointment, if applicable.
--- NOTE | 2019-02-25 12:41 | PCM.DCVAG ---
Discharge Diet: No Restrictions Discharge Activity: Return to Normal Activity, May not drive while taking narcotic pain medications., May Shower May resume sexual activity in: 4-6 weeks Call your doctor if your incision/area has: Continuous Slow Oozing, Sudden Increased Bleeding, Increased Pain/ Swelling, Increased Redness, Foul Smelling Discharge Additional Instructions: If you experience any of the following, contact your healthcare provider. Bleeding that soaks a pad every hour for 2 hours Fever 100.4 or higher Unrelieved incision or abdominal pain Swelling, redness, discharge or bleeding from your incision or episiotomy site Your incision begins to separate Problems urinating (including inability to urinate or burning while urinating). Visual changes Severe headache Flu-like symptoms Pain or redness in one of both of your breasts Pain, warmth, tenderness or swelling in your legs, especially the calf area Frequent nausea and vomiting Symptoms of depression or anxiety If you experience any of the following, call 911 or go to the nearest Emergency Room. Chest pain Problems breathing Seizure activity Partial or complete paralysis of a body part, slurred speech, weakness or drooping of the face, or a sudden inability to walk or hold your balance Allergies/Adverse Reactions: Allergies codeine Allergy (Intermediate, Verified 02/22/19 10:42) Nausea as a child Sulfa (Sulfonamide Antibiotics) Allergy (Mild, Verified 02/22/19 10:42) Nausea Medications to take at Discharge vitamin,calcium,mhohlkwk-accx-smvzx acid tablet 1 tab PO QDAY 03/16/18 Labetalol [Trandate (Beta Maria Elena)] 100 mg PO BID 02/22/19 Please Follow Up With: Melida Alvarez MD - [phone] When: Call to make an appointment with your doctor in 6 weeks. If you had elevated Blood pressure or 4th degree laceration you will need to be seen in 2 weeks. Primary Care Physician: Saad Rosales [Primary Care Provider] - Test Results: Test results from this visit will be discussed in further detail at your follow-up appointment, if applicable.
[2019-02-25] MEDS: Prenatal Vits Tablet 1 TABLET PO (13:16)
[2019-02-25 14:00] VITALS: BP 142/92; PULSE 73; RESP 16; TEMP 36.7; O2SAT 100
[2019-02-25 18:00] VITALS: BP 134/79; PULSE 70; RESP 17; TEMP 36.9
== END 2019-02-25 18:00 | disposition home or self-care (01) | DRG 807 ==
PROVIDERS: Anesthesiology; Admitting Provider Obstetrics & Gynecology; Family Provider Family Medicine; PCP Family Medicine; Referring Provider Obstetrics & Gynecology; Visit Provider Obstetrics & Gynecology
DX: O16.4 Unspecified maternal hypertension, complicating childbirth (principal); Z37.0 Single live birth; O70.0 First degree perineal laceration during delivery; Z3A.38 38 weeks gestation of pregnancy
CPT/HCPCS: 59025; 59050; 85025; 85027; 85049; 86850; 86900; 99218; J7120; A4216; G0378; J2405

== ENCOUNTER → 2019-03-23 | Outpatient (CLI) | payer OTHER, SELFPAY ==
[2019-02-22 10:41] VITALS: BMI 32.3
--- NOTE | 2019-03-23 08:46 | US_ITS ---
STUDY: ABDOMINAL ULTRASOUND - RIGHT UPPER QUADRANT REASON FOR VISIT: Female, 24 years old. Elevated liver enzymes 4 weeks . History of high blood pressure during . TECHNIQUE: Ultrasound evaluation of the right upper quadrant was performed with real-time and static hardin-scale imaging. TECHNICAL QUALITY: Adequate. COMPARISON: None. FINDINGS: Liver: The liver measures 15.4 cm. There is normal echogenicity of the liver. The bile ducts are within normal limits. There is hepatic color flow. The direction of portal flow is hepatopetal. There is no demonstrated mass lesion. Gallbladder: Normal distended gallbladder. The gallbladder wall measures 2.2 mm. There is a negative sonographic Willard's sign. There is no pericholecystic fluid. There are no gallstones. Common Bile Duct (C.B.D.): The common bile duct measures 3.0 mm. Pancreas: Normal size of the head, body and tail of the pancreas. There is normal echogenicity of the pancreas. There is no demonstrated pancreatic mass or cyst. Right Kidney: Normal size of the right kidney. The right kidney measures 10.2 x 6.2 x 4.3 cm. Normal renal cortex. The right cortex measures 1.2 cm. There is no demonstrated renal mass or cyst. There is no right hydronephrosis. US/Liver IMPRESSION: Normal right upper quadrant ultrasound examination. Electronically Signed: Michael Cruz MD at 17:00 EDT , Service support ,
== END | disposition home or self-care (01) ==
LOC: US 08:46
PROVIDERS: Family Provider Family Medicine; PCP Family Medicine; Referring Provider Nurse Practitioner; Visit Provider Nurse Practitioner
DX: R74.8 Abnormal levels of other serum enzymes (principal)
CPT/HCPCS: 76705

== ENCOUNTER → 2019-04-06 | Outpatient (CLI) | payer OTHER, SELFPAY ==
[2019-04-06 11:54] VITALS: BMI 32.3
[2019-04-11 09:59] LABS: HPV Reflexed? NOT INDICATED
== END | disposition home or self-care (01) ==
LOC: LABSPEC 13:46
PROVIDERS: Family Provider Family Medicine; PCP Family Medicine; Referring Provider Obstetrics & Gynecology; Visit Provider Obstetrics & Gynecology
DX: Z12.4 Encounter for screening for malignant neoplasm of cervix (principal)
CPT/HCPCS: 87624; 88175; G0145

== ENCOUNTER → 2019-06-04 | Outpatient (CLI) | payer OTHER, SELFPAY ==
[2019-04-06 11:54] VITALS: BMI 32.3
[2019-06-04 10:34] LABS: ALB/GLOB Ratio 1.2 RATIO (0.9-2.4); AST(SGOT) 14 U/L (15-37); Alanine Aminotransfer ALT/SGPT 26 U/L (13-56); Albumin, Serum 3.9 g/dL (3.2-5.0); Alkaline Phosphatase 70 U/L (45-117); Anion Gap 8 (5-15); BUN 16 mg/dL (7-18); BUN/Creat Ratio 17.6 RATIO (10-20); Calcium,Total 9.1 mg/dL (8.5-10.1); Chloride 106 mmol/L (98-107); Creatinine, Serum 0.91 mg/dL (0.55-1.02); EST Glomerular Filtration Rate 81 mL/min (>60); Est Glom Filt Rate - Afr Amer 98 mL/min (>60); Globulin 3.3 g/dL (2.2-4.2); Glucose 110 mg/dL (74-106); Potassium 3.6 mmol/L (3.5-5.1); Protein, Total 7.2 g/dL (6.4-8.2); Sodium Level 141 mmol/L (136-145)
== END | disposition home or self-care (01) ==
LOC: LAB 09:05
PROVIDERS: Family Provider Family Medicine; PCP Family Medicine; Referring Provider Nurse Practitioner; Visit Provider Nurse Practitioner
DX: I10 Essential (primary) hypertension (principal)
CPT/HCPCS: 36415; 80053

== ENCOUNTER → 2019-06-10 | Outpatient (CLI) | payer OTHER, SELFPAY ==
[2019-04-06 11:54] VITALS: BMI 32.3
[2019-06-10 14:28] LABS: Microalbumin,Random Urine 5.9 mg/L (NO RANGE EST.); Microalbumin:Creatinine Ratio 6.8 mg/g CRE (<30 mg/g CRE)
[2019-06-10 14:37] LABS: Free T3 3.1 pg/mL (2.18-3.98); T4 Free Direct 0.92 ng/dL (0.76-1.46); Thyroid Stim Hormone (TSH) 1.11 uIU/mL (0.358-3.74)
== END | disposition home or self-care (01) ==
LOC: MTLAB 11:48
PROVIDERS: Family Provider Family Medicine; PCP Family Medicine; Referring Provider Nurse Practitioner; Visit Provider Nurse Practitioner
DX: I10 Essential (primary) hypertension (principal)
CPT/HCPCS: 36415; 82043; 82570; 84439; 84443; 84481

== ENCOUNTER 2020-05-06 09:46 | Emergency (ER) | payer OTHER, SELFPAY ==
[2019-04-06 11:54] VITALS: BMI 32.3
[2020-05-06 09:48] VITALS: BP 109/72; PULSE 114; RESP 17; TEMP 37.4; O2SAT 98; BMI 21.4
--- NOTE | 2020-05-06 10:01 | CT_ITS ---
HISTORY: RUQ PAIN, ELEV WBC, NAUSEA, FEVER, PENDING COVID TEST COMPARISON: Right upper quadrant ultrasound 03/23/2019 TECHNIQUE: Helical CT axial images from the lung bases to the pubic symphysis with 100mL Isovue-370 intravenous contrast. Multiplanar reconstruction. No oral contrast was administered. A radiation dose optimization technique was used for this scan. # of images incl. paperwork: [id number] FINDINGS: LUNG BASES: No basilar consolidation or effusions. LIVER: Normal in size and attenuation. Posterior right hepatic lobe benign-appearing lesion measuring 1.1 cm likely representing hemangioma, this lesion demonstrates partial filling-and on delayed phase imaging. No suspicious hepatic masses. HEPATOBILIARY: Normal-appearing gallbladder. No intra- or extrahepatic ductal dilatation. SPLEEN: Mild splenomegaly measuring up to 13.5 cm. PANCREAS: Normal size and contour. No focal mass. ADRENAL GLANDS: Normal size. No adrenal masses. KIDNEYS: Moderate sized area of left upper pole decreased attenuation compared to the remainder of the left renal parenchyma which may worsen pyelonephritis versus complex mass measuring 2.5 x 3.0 x 3.4 cm in greatest TV/AP/CC dimensions. No obstructing calculi or hydronephrosis bilaterally. No nephrolithiasis. No significant cysts are present. Normal ureters bilaterally without calculi or hydroureter. BOWEL MESENTERY: No small or large bowel dilatation. No colonic diverticulosis. The appendix is not visualized, no secondary signs of appendicitis. No abnormal mesenteric lymphadenopathy. No pneumoperitoneum. RETROPERITONEUM:Normal caliber abdominal aorta without aneurysm. No abnormal retroperitoneal lymphadenopathy. PELVIS:Urinary bladder is suboptimally distended. Small amount of cul-de-sac free fluid. Uterus and adnexal structures are unremarkable. ABDOMINAL WALL: The abdominal wall is intact. BONES: No suspicious osseous lytic or blastic lesions seen. CT/Abdomen/Pelvis W IV Cont ONLY IMPRESSION: 1. Inhomogeneity of the left upper pole renal enhancement in a pattern suspicious for pyelonephritis. Correlate clinically. If no evidence for pyelonephritis, then further workup of this area measuring 2.5 x 3.0 x 3.4 cm as a complex mass is recommended. 2. Mild splenomegaly. 3. Posterior right hepatic lobe 1.1 cm benign lesion, most likely representing hemangioma. No further workup is warranted. 4. Trace cul-de-sac free fluid, likely physiologic in nature. 5. The appendix is not visualized, no secondary signs of appendicitis. Individualized dose optimization techniques were used for this CT. at 1215 Reported and signed by: Rusty Cam MD Electronically Signed: Rusty Cam MD at 12:14 EDT Tel , Service support ,
--- NOTE | 2020-05-06 10:03 | ED.VIS.GI ---
History of Present Illness Informant: Patient, Significant Other - Abdominal Pain/Flank Pain Onset: Yesterday Context: Gradual Onset Timing: Continuous Quality: Cramping, Sharp Location: LUQ, LLQ Current Severity: Moderate Maximum Severity: Severe Worsened by: Food, Movement Relieved by: Nothing - Nausea/Vomiting/Emesis GI Symptom: Nausea. Negative for: Vomiting Onset: Today - Diarrhea/Melena/Hematochezia GI Symptom: Negative for: Diarrhea, Melena, Hematochezia Associated Symptoms: Negative for: Dysuria, Frequency, Hematuria, Urgency Narrative: 45-year-old female who denies any significant past medical history presents to the emergency department with fever and abdominal pain. Today is her third day of a fever. Maximum temperature 104 ?F orally. She went to the urgent care yesterday. They sent off a test for coronavirus which is pending. She woke up in the middle the night this morning early with left upper quadrant and left lower quadrant abdominal pain that is progressively worsened. She has had nausea but no vomiting. No diarrhea melena or hematochezia. No vaginal bleeding or discharge. No urinary symptoms. No chest pain or shortness of breath. She is not lightheaded or dizzy. No rash. No trauma. No back pain. Denies any history of similar symptoms denies sick contacts no contacts with anyone with coronavirus no recent travel. Prior similar symptoms: No Recent Illness/Hospitalization: No <Zac Gillespie - Last Filed: 05/06/20 12:37> <January Torres - Last Filed: 05/06/20 16:30> Chief Complaint: Abd Pain Past Medical History Prior records reviewed: Yes Past Medical History: None Surgical History: no surgical history Lives: With Family Smoking Status: Never smoker Alcohol: Occasional Drugs: None <Zac Gillespie - Last Filed: 05/06/20 12:37> <January Torres - Last Filed: 05/06/20 16:30> - Allergies and Home Meds Allergies/Adverse Reactions: Allergies codeine Allergy (Intermediate, Verified 05/06/20 09:47) Nausea as a child Sulfa (Sulfonamide Antibiotics) Allergy (Mild, Verified 05/06/20 09:47) Nausea Primary Care Physician: Reina Aguirre DO [Primary Care Provider] - 5-7 Days Review of Systems All systems negative except as indicated General: Reports: Chills, Fever. Denies: Sweats Eyes: Denies: Visual changes - bilaterally, Diplopia ENT: Denies: Rhinorrhea, Sore throat Cardiovascular: Denies: Chest pain, Palpitations, Heart racing Respiratory: Denies: Dyspnea, Cough, Sputum, Dyspnea on exertion, Orthopnea, Paroxysmal nocturnal dyspnea Gastrointestinal: Reports: Abdominal pain, Nausea. Denies: Vomiting, Diarrhea, Constipation, Melena, Hematochezia Genitourinary: Denies: Dysuria, Hematuria, Frequency Musculoskeletal: Denies: Myalgias, Arthralgias, Neck pain, Back pain, Swelling, Extremity Pain Skin: Denies: Rash, Abscess, Abrasions, Wounds Neurological: Denies: Headache, Weakness, Parasthesia, Numbness <Zac Gillespie - Last Filed: 05/06/20 12:37> Physical Exam Vital Signs/Narrative: Vital Signs Temp Pulse Resp BP Pulse Ox 05/06/20 09:48 99.4 F H 114 H 17 109/72 98 Inital Vital Signs reviewed: Yes General: Well nourished, Well developed, No Acute Distress Head: Normocephalic, Atraumatic Eyes: Perrl, EOMI ENT: Moist mucous membranes, No rhinorrhea Neck: Supple, Nontender Cardiovascular: Regular rate, Regular rhythm, No murmurs Respiratory: No distress, CTA bilaterally, Chest nontender Abdomen: Soft, Nondistended, Normal bowel sounds, Tender. Negative for: Guarding, Rebound tenderness, Ventral hernia, Umbilical hernia, Psoas sign, Obturator sign, Rovsig's sign, Willard's sign Back: Nontender, Normal Inspection. Negative for: CVA tenderness, Spinal tenderness Extremities: Nontender, No edema. Negative for: Tenderness, Edema, Calf Tenderness Skin: Normal color, No rash Neurological: Alert, Oriented x3, Cranial nerves II-XII grossly intact, Normal Strength, Normal Sensation, Normal Gait Psychological: Normal affect, Normal Mood <Zac Gillespie - Last Filed: 05/06/20 12:37> Vital Signs/Narrative: Vital Signs Temp Pulse Resp BP Pulse Ox 05/06/20 13:00 99 F 89 18 123/80 H 05/06/20 12:30 98.3 F 84 18 124/68 H 100 <January Torres - Last Filed: 05/06/20 16:30> Diagnostic/Tx/Re-eval CT: Abdomen and Pelvis Impressions Abdomen/Pelvis CT 05/06/20 10:01 IMPRESSION: 1. Inhomogeneity of the left upper pole renal enhancement in a pattern suspicious for pyelonephritis. Correlate clinically. If no evidence for pyelonephritis, then further workup of this area measuring 2.5 x 3.0 x 3.4 cm as a complex mass is recommended. 2. Mild splenomegaly. 3. Posterior right hepatic lobe 1.1 cm benign lesion, most likely representing hemangioma. No further workup is warranted. 4. Trace cul-de-sac free fluid, likely physiologic in nature. 5. The appendix is not visualized, no secondary signs of appendicitis. Individualized dose optimization techniques were used for this CT. at 1215 Reported and signed by: Rusty Cam MD Electronically Signed: Rusty Cam MD at 12:14 EDT Tel , Service support , 05/06/20 10:01 CT Abd [Abdomen/Pelvis W IV Cont ONLY] [CT] Stat Laboratory Results 05/06/20 05/06/20 05/06/20 10:20 10:20 10:20 WBC 11.9 H RBC 4.63 Hgb 13.0 Hct 40.3 MCV 87.0 MCH 28.1 MCHC 32.3 RDW Std Deviation 41.7 RDW Coeff of Cecy 12.9 Plt Count 169 MPV 12.7 H Immature Gran % (Auto) 0.300 Neut % (Auto) 76.1 H Lymph % (Auto) 10.5 L [place] % (Auto) 12.7 H Eos % (Auto) 0.1 Baso % (Auto) 0.3 Absolute Neuts (auto) 9.1 H Absolute Lymphs (auto) 1.25 Nucleated RBC % 0 Differential Comment SCANNED Diff Path Review November foll PT 14.1 INR 1.1 Sodium 138 Potassium 3.7 Chloride 106 Carbon Dioxide 26.0 Anion Gap 6 BUN 9 Creatinine 0.94 Estim Creat Clear Calc 88.97 Est GFR (MDRD) Af Amer 93 Est GFR (MDRD) Non-Af 77 BUN/Creatinine Ratio 9.6 L Glucose 125 H Lactic Acid Calcium 9.0 Total Bilirubin 0.90 AST 19 ALT 37 Alkaline Phosphatase 76 Total Protein 8.1 Albumin 3.8 Globulin 4.3 H Albumin/Globulin Ratio 0.9 Lipase 137 Serum , Qual Urine Color Urine Clarity Urine pH Ur Specific [place] Urine Protein Urine Glucose (UA) Urine Ketones Urine Occult Blood Urine Nitrite Urine Bilirubin Urine Urobilinogen Ur Leukocyte Esterase Urine RBC Urine WBC Ur Squamous Epith Cells Urine Bacteria Urine Mucus 05/06/20 05/06/20 05/06/20 10: 10:25 11:15 WBC RBC Hgb Hct MCV MCH MCHC RDW Std Deviation RDW Coeff of Cecy Plt Count MPV Immature Gran % (Auto) Neut % (Auto) Lymph % (Auto) [place] % (Auto) Eos % (Auto) Baso % (Auto) Absolute Neuts (auto) Absolute Lymphs (auto) Nucleated RBC % Differential Comment Diff Path Review PT INR Sodium Potassium Chloride Carbon Dioxide Anion Gap BUN Creatinine Estim Creat Clear Calc Est GFR (MDRD) Af Amer Est GFR (MDRD) Non-Af BUN/Creatinine Ratio Glucose Lactic Acid 1.2 Calcium Total Bilirubin AST ALT Alkaline Phosphatase Total Protein Albumin Globulin Albumin/Globulin Ratio Lipase Serum , Qual NEGATIVE Urine Color Yellow Urine Clarity Clear Urine pH 7.0 Ur Specific [place] 1.005 Urine Protein Negative Urine Glucose (UA) Normal Urine Ketones Negative Urine Occult Blood 10 H Urine Nitrite Negative Urine Bilirubin Negative Urine Urobilinogen Normal Ur Leukocyte Esterase 500 H Urine RBC 0 SEEN Urine WBC 0-5 SEEN Ur Squamous Epith Cells 0 SEEN Urine Bacteria 2+ Urine Mucus 0 SEEN - Medical Decision Making Patient presents with left-sided abdominal pain and fever. Sepsis work-up was pursued. She was given Toradol for pain and fever. She was given IV fluids. CBC CMP remarkable for a white blood cell count of just over 11. Lipase is negative. Urinalysis is consistent with urinary tract infection. Lactic acid is negative. CT scan abdomen and pelvis demonstrates Inhomogeneity of the left upper pole renal enhancement in a pattern suspicious for pyelonephritis. Correlate clinically. If no evidence for pyelonephritis, then further workup of this area measuring 2.5 x 3.0 x 3.4 cm as a complex mass is recommended. On repeat exam patient's heart rate is improved she is afebrile her abdomen is soft and nontender she is able to tolerate by mouth. Advised patient of findings of CT scan. We will treat her for pyelonephritis. She was advised to follow-up closely with her primary care physician for further management of this possible mass on her kidney. She is agreeable with plan and all questions answered. First dose of antibiotic was given in the emergency department. She will be placed on ciprofloxacin to treat for pyelonephritis. <Zac Gillespie - Last Filed: 05/06/20 12:37> - Medical Decision Making I have personally performed a [id number] assessment of the patient and have reviewed the PA note. 25-year-old female presenting with left-sided abdominal pain and fever. Vitals are stable. She has left upper quadrant tenderness with no guarding or rebound. Labs, UA, CT are reviewed. Patient feels improved and will follow up with her primary care physician. Advised return to ED for worsening complaints. <January Torres - Last Filed: 05/06/20 16:30> ED Disposition <Zac Gillespie - Last Filed: 05/06/20 12:37> <January Torres - Last Filed: 05/06/20 16:30> - Plan for ED Patient: Disposition: Home or Assisted Living Diagnosis: Pyelonephritis, Sepsis Instructions: ED Pyelonephritis Female Adult Prescriptions: Ciprofloxacin [Cipro] 500 mg PO BID #28 tab Transmission Status: Received by [facility]/pharmacy #[id number] Referrals: Reina Aguirre DO [Primary Care Provider] - 5-7 Days
[2020-05-06] MEDS: 0.9% Normal Saline 1,000 ML 999 ML IV (10:31)
[2020-05-06] MEDS: Ketorolac 15 MG/ML Vial IV (10:31)
[2020-05-06 10:33] VITALS: PULSE 100; RESP 18; O2SAT 98
[2020-05-06 10:37] VITALS: BP 138/67; PULSE 100; RESP 18; TEMP 37.4; O2SAT 98
[2020-05-06 10:46] LABS: Absolute Lymphocyte Count 1.25 X10^3/uL (0.83-4.51); Absolute Neutrophil Count 9.1 X10^3/uL (2.0-7.7); Basophil# 0.04 X10^3/uL; Basophil% 0.3 % (0-1); Eosinophil# 0.01 X10^3/uL; Eosinophils% 0.1 % (0-5); Hematocrit 40.3 % (37-47); Lymphocyte # 1.25 X10^3/ul (4.0); Lymphocyte % 10.5 % (19-41); Mean Corp Hgb Conc 32.3 g/dL (32-36); Mean Corpuscular Hgb 28.1 pg (27.0-32.0); Mean Platelet Vol. 12.7 fl (6.2-12.0); Monocyte# 1.52 X10^3/uL; Monocyte% 12.7 % (0-10); NRBC Flagged by Analyzer 0 % (0-5); Neutrophil # 9.07 X10^3/uL (2.7-7.7); Neutrophil % 76.1 % (47-70); POSITIVE DIFFERENTIAL YES; Platelet Count 169 K/mm3 (150-450); RBC Distribution Width CV 12.9 % (11.6-14.6); RBC Distribution Width SD 41.7 fl (35.1-43.9); Red Blood Count 4.63 M/mm3 (4.2-5.4); White Blood Count 11.9 K/mm3 (4.4-11.0)
[2020-05-06 10:49] VITALS: TEMP 37.3
[2020-05-06 10:50] LABS: ALB/GLOB Ratio 0.9 RATIO (0.9-2.4); AST(SGOT) 19 U/L (15-37); Alanine Aminotransfer ALT/SGPT 37 U/L (13-56); Albumin, Serum 3.8 g/dL (3.2-5.0); Alkaline Phosphatase 76 U/L (45-117); Anion Gap 6 (5-15); BUN 9 mg/dL (7-18); BUN/Creat Ratio 9.6 RATIO (10-20); Chloride 106 mmol/L (98-107); Creatinine, Serum 0.94 mg/dL (0.55-1.02); Differential Indicated SCAN CRITERIA MET; EST Glomerular Filtration Rate 77 mL/min (>60); Est Glom Filt Rate - Afr Amer 93 mL/min (>60); Estimated Creatinine Clearance 88.97 ml/min; Globulin 4.3 g/dL (2.2-4.2); Glucose 125 mg/dL (74-106); Lipase 137 U/L (73-393); Potassium 3.7 mmol/L (3.5-5.1); Protein, Total 8.1 g/dL (6.4-8.2); Sodium Level 138 mmol/L (136-145)
[2020-05-06 10:51] LABS: Internal QC Validated? YES +Cl - CLEAR BKGD; Pregnancy, Serum, hCG Quali. NEGATIVE Negative
[2020-05-06 10:52] LABS: International Normalized Ratio 1.1; Prothrombin Time (Protime)PT. 14.1 SECONDS (11.7-14.9)
[2020-05-06 11:00] LABS: Lactic Acid 1.2 mmol/L (0.4-1.9)
[2020-05-06 11:20] LABS: Mucous, Urine 0 SEEN /hpf (<or=2+); Red Blood Cells-Urine 0 SEEN /hpf (0-5); Squamous Epithelial Cells - UA 0 SEEN /hpf (5-10)
[2020-05-06 11:24] LABS: Differential Comment SCANNED
[2020-05-06 11:38] LABS: Color, Urine Yellow (Yellow); Glucose, Dipstick Normal (Normal); Ketone-Dipstick Negative (Negative); Leukocyte Esterase-Dipstick 500 /ul (Negative); Nitrite-Dipstick Negative (Negative); Occult Blood-Urine 10 /ul (Negative); Protein-Dipstick Negative (Negative); Specific Gravity, Urine 1.005 (1.002-1.030); Urine Bilirubin Dipstick Negative (Negative); Urine Clarity Clear (Clear); Urine Urobilinogen Normal (Normal)
[2020-05-06 11:51] LABS: White Blood Cells 0-5 SEEN /hpf (0-5)
[2020-05-06 11:52] LABS: Bacteria 2+ /hpf (None Seen)
[2020-05-06 12:30] VITALS: BP 124/68; PULSE 84; RESP 18; TEMP 36.8; O2SAT 100
[2020-05-06] MEDS: Ciprofloxacin 500 MG Tablet PO (12:59)
[2020-05-06 13:00] VITALS: BP 123/80; PULSE 89; RESP 18; TEMP 37.2
[2020-05-07 12:05] LABS: Pathologist Review Reviewed
== END 2020-05-06 13:01 | disposition home or self-care (01) ==
PROVIDERS: Emergency Provider Physician Assistant Medical; PCP Internal Medicine
DX: N12 Tubulo-interstitial nephritis, not specified as acute or chronic (principal); A41.9 Sepsis, unspecified organism
CPT/HCPCS: 74177; 80053; 81001; 83605; 83690; 84703; 85025; 85610; 87040; 87086; 87088; 87186; 96361; 96374; 99285; J7030; Q9967

== ENCOUNTER → 2020-05-28 14:29 | Outpatient (CLI) | payer OTHER, SELFPAY ==
[2020-05-06 09:48] VITALS: BMI 21.4
--- NOTE | 2020-05-28 14:51 | US_ITS ---
STUDY: RENAL ULTRASOUND - COMPLETE REASON FOR EXAM: Female, 25 years old. Lt renal mass TECHNIQUE: Ultrasound evaluation of the kidneys was performed with real-time and static castillo-scale imaging. COMPARISON: CT abdomen and pelvis 05/06/2020. FINDINGS: RIGHT KIDNEY: Normal location of the right kidney, which is normal in size. The right kidney measures 10 x 5.5 x 4.2 cm. There is a normal cortex of the right kidney. The renal cortex measures 1.6 cm. There is no right renal mass or cyst. There are no right renal calculi. There is no right hydronephrosis. DISTAL RIGHT URETER: There is non-visualization of the distal right ureter. There is no demonstrated right ureterovesical junction calculus. There is a visualized right ureteral jet. LEFT KIDNEY: Normal location of the left kidney, which is normal in size. The left kidney measures 10.5 x 5.5 x 4.5 cm. There is a normal cortex of the left kidney. The renal cortex measures 1.6 cm. The left upper renal pole contains indistinct slightly increased echogenicity extending from the medulla into the cortex . There is no focal defined left renal mass or cyst. There is no increased or decreased vascularity at this level. There are no left renal calculi. There is no left hydronephrosis. DISTAL LEFT URETER: There is non-visualization of the distal left ureter. There is no demonstrated left ureterovesical junction calculus. There is a visualized left ureteral jet. BLADDER: The distended urinary bladder has a volume of 603.5 ml. There is minimal debris within the urinary bladder. There is a normal wall thickness of the distended urinary bladder. There is no demonstrated mass within the urinary bladder. There are no demonstrated bladder calculi. US/Kidney and Bladder IMPRESSION: No defined cystic or solid mass within the left upper renal pole detected, there is however increased echotexture extending from the medulla to the cortex without increased or decreased vascularity. As there is no defined mass detected, this may be due to resolved inflammatory change. Consider MRI examination for better detail and to exclude underlying pathology. Electronically Signed: Zaynab Mackay MD at 6:53 EST , Service support ,
== END ==
PROVIDERS: PCP Internal Medicine; Referring Provider Internal Medicine; Visit Provider Internal Medicine
DX: N28.89 Other specified disorders of kidney and ureter (principal)
CPT/HCPCS: 76770

== ENCOUNTER → 2020-06-08 10:57 | Outpatient (CLI) | payer OTHER, SELFPAY ==
--- NOTE | 2020-06-08 11:04 | MRI_ITS ---
STUDY: MRI ABDOMEN WITH AND WITHOUT CONTRAST REASON FOR EXAM: Female, 25 years old. LEFT renal mass, H/O l KIDNEY INFECTION 1 MONTH AGO PAIN SINCE TECHNIQUE: Standardized fat and water weighted pulse sequences were obtained in all 3 orthogonal planes post contrast administration. IV 14cc dotarem was administered for the contrast portion of the examination. COMPARISON: CT 05/06/2020, ultrasound 05/28/2020 FINDINGS: Tiny bilateral pleural effusions. The visualized portions of the heart are within normal limits. 1 cm T2 hyperintense mass of the subcapsular posterior segment the right lobe of the liver demonstrates peripheral globular enhancement consistent with a hemangioma. Normal gallbladder and extrahepatic biliary system. Normal spleen. Normal pancreas. Normal bilateral adrenal glands. Normal right kidney. Again noted is an oval area of relatively decreased contrast enhancement within the lateral cortex of the upper pole of the left kidney. However, the area does not appear as prominent measuring 2 cm which measured [address] Furthermore, the degree of the enhancement change is fairly subtle. This is felt to likely represent resolving focal pyelonephritis. Normal visualized stomach. Normal small intestine. Normal colon. There is non-visualization of the appendix. Normal abdominal aorta. Normal inferior vena cava. Normal retroperitoneum. Normal abdominal wall. Normal osseous structures. MRI/MRI Abd WITH and W/O Contrast IMPRESSION: 1. Decreased size and conspicuity of the area of decreased enhancement within the lateral aspect of the upper pole the left kidney suggestive of a resolving focal pyelonephritis. Follow-up of a renal protocol CT is recommended in 4 weeks to further document resolution and compared with the prior CT from 05/06/2020. 2. MRI confirms a 1 cm hemangioma the subcapsular posterior segment the right lobe of the liver. Electronically Signed: Juventino Isaac MD at 12:43 EST Tel , Service support ,
== END ==
PROVIDERS: PCP Internal Medicine; Referring Provider Nurse Practitioner; Visit Provider Nurse Practitioner
DX: N28.89 Other specified disorders of kidney and ureter (principal)
CPT/HCPCS: 74183; A9575

== ENCOUNTER → 2020-09-14 12:51 | Outpatient (CLI) | payer OTHER, SELFPAY ==
[2020-09-14 09:53] VITALS: BMI 24.1
[2020-09-14 14:19] LABS: Protein:Creat Ratio 194 mg/g CRE (0-200)
[2020-09-14 14:23] LABS: Amphetamine Urine VISTA NEGATIVE (<1000 ng/mL); Barbiturate Urine VISTA NEGATIVE (< 200 ng/mL); Benzodiazepine Urine VISTA NEGATIVE (< 200 ng/mL); Cocaine Urine VISTA NEGATIVE (< 300 ng/mL); Ecstacy Urine VISTA NEGATIVE (< 500 ng/mL); Methadone Urine VISTA NEGATIVE (< 300 ng/mL); PCP Urine VISTA NEGATIVE (< 25 ng/mL); THC Urine VISTA NEGATIVE (< 50 ng/mL); Vista UDS pH Range 7
[2020-09-16 14:07] LABS: Chlamydia By Nucleic Acid AMP Negative (Negative)
[2020-09-16 15:06] LABS: Gonococcus By Nucleic Acid AMP Negative (Negative)
== END ==
PROVIDERS: PCP Internal Medicine; Referring Provider Obstetrics & Gynecology; Visit Provider Obstetrics & Gynecology
DX: O09.90 Supervision of high risk pregnancy, unspecified, unspecified trimester (principal); O10.919 Unspecified pre-existing hypertension complicating pregnancy, unspecified trimester; Z3A.00 Weeks of gestation of pregnancy not specified
CPT/HCPCS: 80307; 82570; 84156; 87086; 87491; 87591

== ENCOUNTER → 2020-09-28 09:15 | Outpatient (CLI) | payer OTHER, SELFPAY ==
[2020-09-28 10:17] LABS: Absolute Neutrophil Count 7.4 X10^3/uL (2.0-7.7); Basophil# 0.04 X10^3/uL; Basophil% 0.4 % (0-1); Eosinophil# 0.07 X10^3/uL; Eosinophils% 0.7 % (0-5); Hematocrit 37.1 % (37-47); Hemoglobin 12.6 g/dL (12.0-15.0); Lymphocyte % 17.3 % (19-41); Mean Corpuscular Hgb 29.6 pg (27.0-32.0); Mean Corpuscular Volume 87.3 fL (81-99); Mean Platelet Vol. 12.7 fl (6.2-12.0); Monocyte# 0.62 X10^3/uL; Monocyte% 6.3 % (0-10); NRBC Flagged by Analyzer 0 % (0-5); Neutrophil # 7.36 X10^3/uL (2.7-7.7); Neutrophil % 74.8 % (47-70); Platelet Count 155 K/mm3 (150-450); RBC Distribution Width SD 41.9 fl (35.1-43.9); Red Blood Count 4.25 M/mm3 (4.2-5.4); White Blood Count 9.8 K/mm3 (4.4-11.0)
[2020-09-28 10:24] LABS: NATERA MAILED SPECIMEN
[2020-09-28 10:51] LABS: ALB/GLOB Ratio 0.9 RATIO (0.9-2.4); AST(SGOT) 18 U/L (15-37); Alanine Aminotransfer ALT/SGPT 35 U/L (13-56); Albumin, Serum 3.5 g/dL (3.2-5.0); Alkaline Phosphatase 52 U/L (45-117); Anion Gap 6 (5-15); BUN 14 mg/dL (7-18); BUN/Creat Ratio 16.8 RATIO (10-20); Calcium,Total 9.2 mg/dL (8.5-10.1); Chloride 104 mmol/L (98-107); Creatinine, Serum 0.83 mg/dL (0.55-1.02); EST Glomerular Filtration Rate 88 mL/min (>60); Est Glom Filt Rate - Afr Amer 107 mL/min (>60); Globulin 3.8 g/dL (2.2-4.2); Glucose 68 mg/dL (74-106); Potassium 3.8 mmol/L (3.5-5.1); Protein, Total 7.3 g/dL (6.4-8.2); Sodium Level 137 mmol/L (136-145)
[2020-09-28 13:42] LABS: HIV - WCH Non-Reactive (Nonreactive); Hepatitis B Surface Antigen Non-Reactive (Nonreactive); Hepatitis C Antibody Non-Reactive (Nonreactive); Rubella IgG Reactive (Nonreactive); SARS-COV-2 TOTAL ABS Nonreactive (Nonreactive); Syphilis Antibodies Non-reactive
== END ==
PROVIDERS: PCP Internal Medicine; Referring Provider Obstetrics & Gynecology; Visit Provider Obstetrics & Gynecology
DX: O09.90 Supervision of high risk pregnancy, unspecified, unspecified trimester (principal); O10.919 Unspecified pre-existing hypertension complicating pregnancy, unspecified trimester; Z3A.00 Weeks of gestation of pregnancy not specified
CPT/HCPCS: 36415; 80053; 85025; 86703; 86762; 86769; 86803; 86850; 86900; 86901; 87340

== ENCOUNTER → 2020-11-23 08:02 | Outpatient (CLI) | payer OTHER, SELFPAY ==
[2020-10-12 09:31] VITALS: BMI 24.7
[2020-11-09 09:28] VITALS: BMI 26.3
--- NOTE | 2020-11-23 08:05 | US_ITS ---
STUDY: SECOND AND THIRD TRIMESTER OBSTETRICAL ULTRASOUND REASON FOR EXAM: Female, 25 years old anatomy LMP: 07/07/2020. TECHNIQUE: Transabdominal and Transvaginal TECHNICAL QUALITY: Adequate. PRIOR ULTRASOUND: None. FINDINGS: There is a single intrauterine fetus. The fetus is in a viable presentation. There is demonstrated cardiac activity with a heart rate of 150 bpm. There is a normal amniotic fluid volume. The largest amniotic fluid pocket measures 3.6 cm. The amniotic fluid index (FAISAL) is within normal limits. The placenta is anterior in location and is not low lying. There are Grade 0 placental changes. The cervix measures 4.8 cm in length. The bilateral adnexal regions are normal. BIOMETRY: BPD: 4.37 cm: 19 weeks, 2 days HC: 17.19 cm: 19 weeks, 6 days AC: 14.61 cm: 20 weeks, 0 days FL: 3.22 cm: 20 weeks, 1 days CI: 72% FL/BPD: 74% FL/HC: FL/AC: 22% HC/AC: 1.18 age by current US: 19 weeks, 6 days. SUSANA by current US: 04/13/2020. Estimated weight: 321 grams, +/- 47 grams, 49 %. Age by LMP: 19 weeks, 6 days. SUSANA by LMP: 04/13/2020. ANATOMY: Gender: Male Cranium: Normal lateral ventricles. Normal choroid plexus. Normal cerebellum. Normal cisterna magna. Normal face, nose and lips. Chest: Normal 4-chamber heart. Abdomen/Pelvis: Normal diaphragm. Normal stomach. Normal abdominal wall. Normal cord insertion. Normal 3 vessel cord. Normal kidneys. Normal bladder. Spine: Normal cervical spine. Normal thoracic spine. Normal lumbar spine. Normal sacrum. Extremities: Normal bilateral upper extremities. Normal bilateral lower extremities. US/OB Anatomy Scan IMPRESSION: Single live intrauterine gestation with a mean gestational age of 19 weeks and 6 days. Electronically Signed: Jaciel Galarza MD at 13:39 EDT , Service support ,
== END ==
PROVIDERS: PCP Internal Medicine; Referring Provider Obstetrics & Gynecology; Visit Provider Obstetrics & Gynecology
DX: O09.90 Supervision of high risk pregnancy, unspecified, unspecified trimester (principal); Z3A.00 Weeks of gestation of pregnancy not specified
CPT/HCPCS: 76805; 76817

== ENCOUNTER → 2021-01-11 09:56 | Outpatient (CLI) | payer OTHER, SELFPAY ==
[2021-01-11 09:29] VITALS: BMI 26.3
[2021-01-11 11:14] LABS: Absolute Lymphocyte Count 1.22 X10^3/uL (0.83-4.51); Absolute Neutrophil Count 7.5 X10^3/uL (2.0-7.7); Basophil# 0.04 X10^3/uL; Basophil% 0.4 % (0-1); Eosinophil# 0.07 X10^3/uL; Eosinophils% 0.7 % (0-5); Hematocrit 33.9 % (37-47); Lymphocyte # 1.22 X10^3/ul (0.83-4.51); Lymphocyte % 12.7 % (19-41); Mean Corp Hgb Conc 32.4 g/dL (32-36); Mean Corpuscular Hgb 29.2 pg (27.0-32.0); Mean Corpuscular Volume 89.9 fL (81-99); Mean Platelet Vol. 12.9 fl (6.2-12.0); Monocyte# 0.61 X10^3/uL; Monocyte% 6.3 % (0-10); NRBC Flagged by Analyzer 0 % (0-5); Neutrophil % 77.8 % (47-70); Platelet Count 143 K/mm3 (150-450); RBC Distribution Width CV 13.7 % (11.6-14.6); RBC Distribution Width SD 45.2 fl (35.1-43.9); Red Blood Count 3.77 M/mm3 (4.2-5.4); White Blood Count 9.6 K/mm3 (4.4-11.0)
[2021-01-11 11:55] LABS: Glucose Challenge Gest 1H 50g 100 mg/dL (70-140)
== END ==
PROVIDERS: PCP Internal Medicine; Referring Provider Obstetrics & Gynecology; Visit Provider Obstetrics & Gynecology
DX: Z13.1 Encounter for screening for diabetes mellitus (principal)
CPT/HCPCS: 36415; 82950; 85025

== ENCOUNTER → 2021-02-22 07:57 | Outpatient (CLI) | payer OTHER, SELFPAY ==
[2020-11-09 09:28] VITALS: BMI 26.3
[2021-02-15 10:05] VITALS: BMI 26.3
--- NOTE | 2021-02-22 08:02 | US_ITS ---
STUDY: SECOND AND THIRD TRIMESTER OBSTETRICAL ULTRASOUND -- Limited REASON FOR EXAM: Female, 26 years old routine survey LMP: 07/07/2020 TECHNIQUE: Transabdominal TECHNICAL QUALITY: Adequate. PRIOR ULTRASOUND: None. FINDINGS: There is a single intrauterine fetus. The fetus is in a breech presentation. There is demonstrated cardiac activity with a heart rate of 133 bpm. There is a normal amniotic fluid volume. The largest amniotic fluid pocket measures 4.6 cm. The amniotic fluid index (FAISAL) is 11.8 cm. The placenta is anterior and fundal, not low-lying There are Grade 1 placental changes. The cervix measures 4.3 cm in length. The adnexal regions are not visualized. BIOMETRY: BPD: 8.05 cm: 32 weeks, 2 days HC: 31.05 cm: 34 weeks, 4 days AC: 29.99 cm: 33 weeks, 6 days FL: 6.66 cm: 34 weeks, 1 days age by current US: 33 weeks, 4 days. SUSANA by current US: 04/08/2021. Estimated weight: 2299 grams, +/- 345 grams, 72 %. Age by LMP: 32 weeks, 6 days. SUSANA by LMP: 04/13/2021. US/OB Limited With Biometrics IMPRESSION: Single live intrauterine at 33 weeks, 4 days by current ultrasound with SUSANA of 04/08/2021. Heart rate of 133 bpm. No suspicious sonographic findings, presentation is breech on this study Electronically Signed: Michael Dunn MD at 9:07 EDT , Service support ,
== END ==
PROVIDERS: PCP Internal Medicine; Referring Provider Obstetrics & Gynecology; Visit Provider Obstetrics & Gynecology
DX: O10.919 Unspecified pre-existing hypertension complicating pregnancy, unspecified trimester (principal); Z3A.00 Weeks of gestation of pregnancy not specified
CPT/HCPCS: 76816

== ENCOUNTER → 2021-03-01 08:04 | Outpatient (CLI) | payer OTHER, SELFPAY ==
[2020-11-09 09:28] VITALS: BMI 26.3
[2021-02-22 08:44] VITALS: BMI 26.3
--- NOTE | 2021-03-01 08:05 | US_ITS ---
INDICATION: FAISAL only EXAMINATION: Ultrasound US OB Limited 1 Or More Fetus TECHNIQUE: Transabdominal was fundal and anterior. Pelvic ultrasound was performed. Grayscale, spectral waveform, and color flow Doppler evaluation of the adnexa. COMPARISON: OB ultrasound dated 11/23/2020 FINDINGS: Limited OB ultrasound was obtained. The partially evaluated anatomy demonstrated no gross abnormality. The heart rate was 127 bpm. The visualized placenta is anterior. Circumscribed anechoic areas are noted in the placenta which may represent placental lakes. DOPPLER flow is appreciated in the placenta. The cervix appeared closed and measuring 3.8 cm. The FAISAL was appropriate measuring 16.1 cm. No biometrics were obtained. The ovaries were not scanned during this image. US/OB Limited (No Biometrics) IMPRESSION: 1. Limited OB ultrasound to evaluate for FAISAL. FAISAL was appropriate at 16.1 cm. 2. heart rate was appreciated at 127 bpm. 3. Cervix closed. Electronically Signed: Nghia Moreno MD at 10:37 EDT Tel , Service support ,
== END ==
PROVIDERS: PCP Internal Medicine; Referring Provider Obstetrics & Gynecology; Visit Provider Obstetrics & Gynecology
DX: O10.919 Unspecified pre-existing hypertension complicating pregnancy, unspecified trimester (principal); Z3A.00 Weeks of gestation of pregnancy not specified
CPT/HCPCS: 76815

== ENCOUNTER → 2021-03-08 07:51 | Outpatient (CLI) | payer OTHER, SELFPAY ==
[2020-11-09 09:28] VITALS: BMI 26.3
[2021-03-01 08:41] VITALS: BMI 26.3
--- NOTE | 2021-03-08 08:04 | US_ITS ---
STUDY: SECOND AND THIRD TRIMESTER OBSTETRICAL ULTRASOUND - LIMITED REASON FOR EXAM: Female, 26 years old FAISAL LMP: 07/07/2020. PRIOR ULTRASOUND: Comparison is made with prior examination dated 03/01/2021. TECHNIQUE: Transabdominal TECHNICAL QUALITY: Adequate. FINDINGS: There is a single intrauterine fetus. The fetus is in a cephalic presentation. There is demonstrated cardiac activity with a heart rate of 153 bpm. There is a normal amniotic fluid volume. The largest amniotic fluid pocket measures 7.1 cm. The amniotic fluid index (FAISAL) is 15.6 cm. The placenta is anterior in location and is not low lying. There are Grade 1 placental changes. The cervix measures 4.9 cm in length. US/OB Limited (No Biometrics) IMPRESSION: Normal amniotic fluid. Electronically Signed: Jaciel Galarza MD at 11:58 EDT , Service support ,
[2021-03-08 09:52] LABS: Absolute Lymphocyte Count 1.57 X10^3/uL (0.83-4.51); Absolute Neutrophil Count 8.4 X10^3/uL (2.0-7.7); Basophil# 0.04 X10^3/uL; Basophil% 0.4 % (0-1); Eosinophil# 0.09 X10^3/uL; Eosinophils% 0.8 % (0-5); Hematocrit 37.4 % (37-47); Hemoglobin 11.9 g/dL (12.0-15.0); Lymphocyte # 1.57 X10^3/ul (0.83-4.51); Lymphocyte % 14.1 % (19-41); Mean Corp Hgb Conc 31.8 g/dL (32-36); Mean Corpuscular Hgb 27.9 pg (27.0-32.0); Mean Corpuscular Volume 87.6 fL (81-99); Mean Platelet Vol. 13.5 fl (6.2-12.0); Monocyte# 0.81 X10^3/uL; Monocyte% 7.3 % (0-10); NRBC Flagged by Analyzer 0 % (0-5); Neutrophil # 8.44 X10^3/uL (2.7-7.7); Platelet Count 127 K/mm3 (150-450); RBC Distribution Width CV 13.9 % (11.6-14.6); RBC Distribution Width SD 44.2 fl (35.1-43.9); Red Blood Count 4.27 M/mm3 (4.2-5.4); White Blood Count 11.1 K/mm3 (4.4-11.0)
[2021-03-08 10:02] LABS: Protein, Urine (Random) < 6.0 mg/dL (<11.9)
[2021-03-08 10:06] LABS: ALB/GLOB Ratio 0.7 RATIO (0.9-2.4); AST(SGOT) 17 U/L (15-37); Alanine Aminotransfer ALT/SGPT 25 U/L (13-56); Alkaline Phosphatase 151 U/L (45-117); Anion Gap 7 (5-15); BUN 8 mg/dL (7-18); BUN/Creat Ratio 12.6 RATIO (10-20); Calcium,Total 8.8 mg/dL (8.5-10.1); Chloride 105 mmol/L (98-107); Creatinine, Serum 0.64 mg/dL (0.55-1.02); EST Glomerular Filtration Rate 120 mL/min (>60); Est Glom Filt Rate - Afr Amer 145 mL/min (>60); Globulin 4.1 g/dL (2.2-4.2); Glucose 75 mg/dL (74-106); Potassium 3.9 mmol/L (3.5-5.1); Protein, Total 7.1 g/dL (6.4-8.2); Sodium Level 137 mmol/L (136-145)
== END ==
PROVIDERS: Obstetrics & Gynecology; PCP Internal Medicine; Referring Provider Obstetrics & Gynecology; Visit Provider Obstetrics & Gynecology
DX: O10.919 Unspecified pre-existing hypertension complicating pregnancy, unspecified trimester (principal); Z3A.00 Weeks of gestation of pregnancy not specified
CPT/HCPCS: 36415; 76815; 80053; 82570; 84156; 85025

== ENCOUNTER → 2021-03-15 08:06 | Outpatient (CLI) | payer OTHER, SELFPAY ==
[2020-11-09 09:28] VITALS: BMI 26.3
--- NOTE | 2021-03-15 08:07 | US_ITS ---
STUDY: SECOND AND THIRD TRIMESTER OBSTETRICAL ULTRASOUND - LIMITED REASON FOR EXAM: Female, 26 years old FAISAL only ( week of Mar 10) LMP: 07/07/2020. PRIOR ULTRASOUND: Comparison is made with prior sonogram dated 03/08/2021. TECHNIQUE: Transabdominal TECHNICAL QUALITY: Adequate. FINDINGS: There is a single intrauterine fetus. The fetus is in a cephalic presentation. There is demonstrated cardiac activity with a heart rate of 133 bpm. There is a normal amniotic fluid volume. The largest amniotic fluid pocket measures 4.6 cm. The amniotic fluid index (FAISAL) is 11.6 cm. The placenta is anterior in location and is not low lying. There are Grade 0 placental changes. US/OB Limited (No Biometrics) IMPRESSION: Normal amniotic fluid. Electronically Signed: Jaciel Galarza MD at 11:09 EDT , Service support ,
== END ==
PROVIDERS: PCP Internal Medicine; Referring Provider Obstetrics & Gynecology; Visit Provider Obstetrics & Gynecology
DX: O10.919 Unspecified pre-existing hypertension complicating pregnancy, unspecified trimester (principal); Z3A.00 Weeks of gestation of pregnancy not specified
CPT/HCPCS: 76815

== ENCOUNTER → 2021-03-22 07:53 | Outpatient (CLI) | payer OTHER, SELFPAY ==
[2020-11-09 09:28] VITALS: BMI 26.3
--- NOTE | 2021-03-22 08:06 | US_ITS ---
STUDY: SECOND AND THIRD TRIMESTER OBSTETRICAL ULTRASOUND - LIMITED REASON FOR EXAM: Female, 26 years old growth at 36 weeks LMP: 07/07/2020. PRIOR ULTRASOUND: Comparison is made with prior study dated 03/15/2021. TECHNIQUE: Transabdominal TECHNICAL QUALITY: Adequate. FINDINGS: There is a single intrauterine fetus. The fetus is in a cephalic presentation. There is demonstrated cardiac activity with a heart rate of 137 bpm. There is a normal amniotic fluid volume. The largest amniotic fluid pocket measures 5.4 cm. The amniotic fluid index (FAISAL) is 13.07 cm. The placenta is anterior and fundal in location and is not low lying. There are Grade 3 placental changes. The cervical length was not measured due to the head position. BIOMETRY: BPD: 8.9 cm: 36 weeks, 0 days HC: 33.6 cm: 38 weeks, 3 days AC: 34.44 cm: 38 weeks, 2 days FL: 7.53 sign: 38 weeks, 3 days Age by LMP: 36 weeks, 6 days. SUSANA by LMP: 04/13/2021. age by prior US: 36 weeks, 6 days. SUSANA by prior US: 04/13/2021. age by current US: 37 weeks, 5 days. SUSANA by current US: 04/07/2021. Estimated weight: 3391 grams, +/- 509 grams, 84 percentile. US/OB Limited With Biometrics IMPRESSION: Single live intrauterine gestation with a mean gestational age of 36 weeks and 6 days. The measurements obtained today fall within the normal expected range. Electronically Signed: Jaciel Galarza MD at 8:52 EDT , Service support ,
== END ==
PROVIDERS: PCP Internal Medicine; Referring Provider Obstetrics & Gynecology; Visit Provider Obstetrics & Gynecology
DX: O09.90 Supervision of high risk pregnancy, unspecified, unspecified trimester (principal); O10.919 Unspecified pre-existing hypertension complicating pregnancy, unspecified trimester; Z3A.00 Weeks of gestation of pregnancy not specified
CPT/HCPCS: 76816; 87081

== ENCOUNTER → 2021-03-29 08:08 | Outpatient (CLI) | payer OTHER, SELFPAY ==
[2020-11-09 09:28] VITALS: BMI 26.3
--- NOTE | 2021-03-29 08:09 | US_ITS ---
STUDY: SECOND AND THIRD TRIMESTER OBSTETRICAL ULTRASOUND - LIMITED REASON FOR EXAM: Female, 26 years old. Evaluate amniotic fluid index LMP: Unknown. PRIOR ULTRASOUND: 03/22/21 TECHNIQUE: Transabdominal ultrasound evaluation was performed. FINDINGS: There is a single intrauterine fetus. The fetus is in a cephalic presentation. There is demonstrated cardiac activity with a heart rate of 153 bpm. There is a normal amniotic fluid volume. The largest amniotic fluid pocket measures 4.4 cm. The amniotic fluid index (FAISAL) is 11.4 cm. The placenta is anterior in location and is not low lying. There are Grade 3 placental changes. The cervix is not visualized. US/OB Limited (No Biometrics) IMPRESSION: Normal amniotic fluid volume. Electronically Signed: Jacob Montero MD at 9:58 EDT Tel , Service support ,
== END ==
PROVIDERS: PCP Internal Medicine; Referring Provider Obstetrics & Gynecology; Visit Provider Obstetrics & Gynecology
DX: O10.919 Unspecified pre-existing hypertension complicating pregnancy, unspecified trimester (principal); Z3A.00 Weeks of gestation of pregnancy not specified
CPT/HCPCS: 76815

== ENCOUNTER → 2021-04-05 07:25 | Outpatient (CLI) | payer OTHER, SELFPAY ==
[2020-11-09 09:28] VITALS: BMI 26.3
--- NOTE | 2021-04-05 08:06 | US_ITS ---
STUDY: SECOND AND THIRD TRIMESTER OBSTETRICAL ULTRASOUND - LIMITED REASON FOR EXAM: Female, 26 years old FAISAL Only LMP: 07/07/2020. PRIOR ULTRASOUND: Comparison is made with prior study 03/29/2021. TECHNIQUE: Transabdominal TECHNICAL QUALITY: Adequate. FINDINGS: There is a single intrauterine fetus. The fetus is in a cephalic presentation. There is demonstrated cardiac activity with a heart rate of 150 bpm. There is a normal amniotic fluid volume. The largest amniotic fluid pocket measures 26 cm. The amniotic fluid index (FAIASL) is 6.1 cm. This is lower limits of normal. The placenta is anterior in location and is not low lying. There are Grade 3 placental changes. US/OB Limited (No Biometrics) IMPRESSION: Amniotic fluid index measures 6.1 cm. This is within the lower limits of normal at 38 weeks and 6 days gestation. Electronically Signed: Jaciel Galarza MD at 8:45 EDT , Service support ,
== END ==
PROVIDERS: PCP Internal Medicine; Referring Provider Obstetrics & Gynecology; Visit Provider Obstetrics & Gynecology
DX: O10.919 Unspecified pre-existing hypertension complicating pregnancy, unspecified trimester (principal); Z3A.00 Weeks of gestation of pregnancy not specified
CPT/HCPCS: 76815

== ENCOUNTER 2021-04-05 18:40 | Inpatient (IN) | payer OTHER, SELFPAY ==
[2021-04-05 19:36] VITALS: BP 127/61; PULSE 84; TEMP 36.9
[2021-04-05] MEDS: miSOPROStol 25 MCG TABLET VAGINAL (20:11)
[2021-04-05 20:13] VITALS: BMI 31.3
[2021-04-05 20:20] LABS: Absolute Lymphocyte Count 1.51 X10^3/uL (0.83-4.51); Absolute Neutrophil Count 8.2 X10^3/uL (2.0-7.7); Basophil# 0.03 X10^3/uL; Basophil% 0.3 % (0-1); Eosinophil# 0.07 X10^3/uL; Eosinophils% 0.7 % (0-5); Hematocrit 32.9 % (37-47); Hemoglobin 10.5 g/dL (12.0-15.0); Lymphocyte # 1.51 X10^3/ul (0.83-4.51); Lymphocyte % 14.1 % (19-41); Mean Corp Hgb Conc 31.9 g/dL (32-36); Mean Corpuscular Hgb 27.5 pg (27.0-32.0); Mean Corpuscular Volume 86.1 fL (81-99); Mean Platelet Vol. 14.2 fl (6.2-12.0); Monocyte% 7.5 % (0-10); NRBC Flagged by Analyzer 0 % (0-5); Neutrophil # 8.22 X10^3/uL (2.7-7.7); Neutrophil % 76.7 % (47-70); Platelet Count 120 K/mm3 (150-450); RBC Distribution Width CV 14.2 % (11.6-14.6); RBC Distribution Width SD 43.8 fl (35.1-43.9); Red Blood Count 3.82 M/mm3 (4.2-5.4); White Blood Count 10.7 K/mm3 (4.4-11.0)
[2021-04-06] VITALS (48 sets, daily range): BP systolic 112–147; BP diastolic 56–85; PULSE 69–101; RESP 16–18; TEMP 36.3–37.1; O2SAT 97–100
[2021-04-06] MEDS: 0.9% Saline Lock 10 ML Syringe IV ×2 (00:18→16:32)
[2021-04-06] MEDS: Lactated Ringers 1,000 ML 50 ML IV (00:18)
[2021-04-06] MEDS: miSOPROStol 25 MCG TABLET VAGINAL (00:50)
[2021-04-06] MEDS: 0.9% Normal Saline Single 100 ML IV.SOLN. INTRA-UTER (06:53)
[2021-04-06] MEDS: Oxytocin 30 units/NS 500 ml 30 UNITS/500 ML IV.SOLN IV (09:12)
[2021-04-06 09:29] LABS: Platelet Count 101 K/mm3 (150-450)
[2021-04-06] MEDS: Lactated Ringers 500 ML 999 ML IV (09:53)
[2021-04-06] MEDS: fentaNYL-bupivacaine (epidural) 100 ML BAG EPIDURAL (10:30)
[2021-04-06] MEDS: Lactated Ringers 1,000 ML 200 ML IV (12:28)
[2021-04-06] MEDS: Oxytocin 30 units/NS 500 ml 30 UNITS/500 ML IV.SOLN 334 UNITS IV (13:32)
--- NOTE | 2021-04-06 14:09 | HP.PCM.OB_ITS ---
HPI - General General Date of Admission: 04/05/21 HPI Narrative REGGIE GALVAN, is a 26 F who presents for IOL Secondary to chronic hypertension well controlled without medication. Maternal Data Information SUSANA Calculator Estimated Delivery Date Method Current WG Current Estimate 04/13/21 LMP (Certain) 39w 0d Other Estimates 04/15/21 Ultrasound #1 38w 5d PFSH PFSH Medical History (Updated 04/05/21 @ 20:18 by Joellen Briceño) Breech presentation Chronic hypertension Gestational HTN Gestational thrombocytopenia Kidney infection Liver hemangioma Home Medications multivitamin no.47-iron fum 27 mg-folate no.1 1 mg-dha 300 mg capsule 1 cap PO DAILY 09/04/20 [History Last Taken 1 Day Ago ~04/04/21] Allergy/AdvReac Type Severity Reaction Status Date / Time codeine Allergy Intermediate Nausea Verified 04/05/21 08:32 Sulfa (Sulfonamide Allergy Mild Nausea Verified 04/05/21 08:32 Antibiotics) Family History Mother Hyperlipidemia Father Hyperlipidemia Surgical History (Updated 04/05/21 @ 20:18 by Joellen Briceño) History of removal of cyst (~2013) [place] teeth removed Social History Smoking Status: Never smoker alcohol intake: never substance use type: does not use caffeine: No what type of physical activity do you participate in: none seatbelt use: always do you feel safe at home: Yes additional social history: [employer] 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 Date Name GA/Weeks Outcome Route Bth Weight Gen Labor Lgth Anesthesia Del Locatn Provider FOB 02/23/19 [place] 38 live - full term 8lbs 2oz Male 24 h ours epidural [facility] Marcanthony Delivery Date: 02/23/19 IoL chronic hypertension; 1st degree laceration Yanique Blackburn Visit Details Expected Delivery Route/Plan plan IOL at 38-39 - wants to delay IOL until at least 39w Labor Preferences- labor support person: Esdras labor intervention preferences: minimal pain management options preferred: planning epidural cut cord/dad catch: [] : yes PP control planned: declines discussed possible routes of delivery and associated risks: [] special requests: [] Plans covid status: postitive in flu vaccine: na tdap vaccine: declined rhogam: na LARC form signed: 02/15 movement and labor precautions reviewed. Problem list reviewed and updated with the most current plan of care details and appropriate orders placed. Relevant counseling for the gestational age provided. Continue routine care and follow up unless otherwise noted in visit notes/problem list details OB Flowsheet Initial Weight: 155 lb Date -?-?-?-?-?-?-?-?-?-?-?-?- EGA Weight BP Urine Prot -?-?-?-?-?-?-?-?-?-?-?-?- Glucose FHR FuHt Pres Dilation -?-?-?-?-?-?-?-?-?-?-?-?- Effaced St Visit Note 09/14/20 -?-?-?-?-?-?-?-?-?-?-?-?- 9w 6d 154 lb (-16 oz) 140/82 -?-?-?-?-?-?-?-?-?-?-?-?- 168 -?-?-?-?-?-?-?-?-?-?-?-?- 09/28/20 -?-?-?-?-?-?-?-?-?-?-?-?- 11w 6d 118/60 -?-?-?-?-?-?-?-?-?-?-?-?- -?-?-?-?-?-?-?-?--?-?-?-?- RN visit for BP check 10/12/20 -?-?-?-?-?-?-?-?-?-?-?-?- 13w 6d 158 lb 6 oz (+3 lb 6 oz) 136/78 -?-?-?-?-?-?-?-?-?-?-?-?- 160 -?-?-?-?-?-?-?-?-?-?-?-?- GP - no cramping or bleeding. PRR. Anatomy reviewed. 11/09/20 -?-?-?-?-?-?-?-?-?-?-?-?- 17w 6d 168 lb (+13 lb) 138/68 Negative -?-?-?-?-?-?-?-?-?-?-?-?- Negative 145 -?-?-?-?-?-?-?-?-?-?-?-?- Sm- no vb lof cr amping discussed chtn management 12/07/20 -?-?-?-?-?-?-?-?-?-?-?-?- 21w 6d 179 lb (+24 lb) 120/60 -?-?-?-?-?-?-?-?-?-?-?-?- 140 -?-?-?-?-?-?-?-?-?-?-?-?- SM- no vb crampi ng 12/17/20 -?-?-?-?-?-?-?-?-?-?-?-?- 23w 2d 180 lb (+25 lb) 130/62 Trace -?-?-?-?-?--?-?-?-?-?-?-?- Negative 146 -?-?-?-?-?-?-?-?-?-?-?-?- -work in for D FM. FHT easily noted with doppler. FM also heard. NO VB, LOF. 01/11/21 -?-?-?-?-?-?-?-?-?-?-?-?- 26w 6d 189 lb 2 oz (+34 lb 2 oz) 118/70 Negative -?-?-?-?-?-?-?-?-?-?-?-?- Negative 150 27 -?-?-?-?-?-?--?-?-?-?-?-?- SM- no vb lof go od fm no regular ctx 02/01/21 -?-?-?-?-?-?-?-?-?-?-?-?- 29w 6d 193 lb (+38 lb) Negative -?-?-?--?-?-?-?-?-?-?-?-?- Negative 150 30 -?-?-?-?-?-?-?-?-?-?-?-?- SM- no vb lof go od fm no regular ctx 02/15/21 -?-?-?-?-?-?-?-?-?-?-?-?- 31w 6d 193 lb (+38 lb) -?-?-?-?-?-?-?-?-?-?-?-?- 130 -?-?-?-?-?-?-?-?-?-?-?-?- GP - no LOF, VB, dFM, ctx. Discussed control. LARC form signed. 02/22/21 -?-?-?-?-?-?-?-?-?-?-?-?- 32w 6d 193 lb 8 oz (+38 lb 8 oz) 138/80 Negative -?-?-?-?-?-?-?-?-?-?-?-?- Negative 140 -?-?-?-?-?-?-?-?-?-?-?-?- GP - NST only. R eactive. 03/01/21 -?-?-?-?-?-?-?-?-?-?-?-?- 33w 6d 197 lb (+42 lb) 136/80 Negative -?-?-?-?-?-?-?-?-?-?-?-?- Negative 130 -?-?-?-?-?-?-?-?-?-?-?-?- SM- nst and no vb lof good f no regular ctx discussed IOL 38-39 03/08/21 -?-?-?-?-?-?-?-?-?-?-?-?- 34w 6d 196 lb (+41 lb) 140/80 140/80 Negative -?-?-?-?-?-?-?-?-?-?-?-?- Negative 130 -?-?-?-?-?-?-?-?-?-?-?-?- GP - nst only. B P elevated. Sent for labs 03/15/21 -?-?-?-?-?-?-?-?-?-?-?-?- 35w 6d 198 lb (+43 lb) -?-?-?-?-?-?-?-?-?-?-?-?- 130 -?-?-?-?-?-?-?-?-?-?-?-?- SM- no vb lof go od fm no regular ctx gbs next week 03/22/21 -?-?-?-?-?-?-?-?-?-?-?-?- 36w 6d 201 lb 4 oz (+46 lb 4 oz) 138/82 Negative -?-?-?-?-?-?-?-?-?-?-?-?- Negative 120 36 Cephalic 0 -?-?-?-?-?-?-?-?-?-?-?-?- GP - no LOF, VB, DFM, ctx. GBS today. 03/29/21 -?-?-?-?-?-?-?-?-?-?-?-?- 37w 6d 203 lb 4 oz (+48 lb 4 oz) 138/80 -?-?-?-?-?-?--?-?-?-?-?-?- 140 37 Cephalic 0 -?-?-?-?-?-?-?-?-?-?-?-?- GP - no LOF, VB, DFM. Luis Alberto on NST, but not feeling them. Discussed IOL 38-39w. Wants to delay as long as possible - will discuss scheduling next week 04/05/21 -?-?-?-?-?-?-?-?-?-?-?-?- 38w 6d 204 lb (+49 lb) 144/90 Negative -?-?-?-?-?--?-?-?-?-?-?-?- Negative 130 38 Cephalic 0 .5 -?-?-?-?-?-?-?-?-?-?-?-?- 40 -3 GP - no LO F, VB, DFM, regular ctx. FAISAL 6 today - plan IOL this evening 04/05/21 -?-?-?-?-?-?-?-?-?-?-?-?- 38w 6d 199 lb 15.348 oz (+44 lb 15.348 oz) 127/61 135/72 130/73 122/73 112/61 132/60 135/79 141/85 132/74 133/84 127/71 147/66 139/67 136/71 137/69 136/77 133/69 128/66 131/70 123/80 -?-?-?-?-?-?-?-?-?-?-?-?- -?-?-?-?-?-?-?-?-?-?-?-?- NST FHR Rate Baby A Baseline: 130 Variability:: Moderate Accelerations:: 15 x 15 Decelerations:: None NST Reactive:: Yes FHR Category:: Category I Uterine Activity:: irregular ROS Constitutional Constitutional: Reports systems reviewed and no addt'l complaints, except as documented Eyes Eyes: Denies change in vision ENT HEENT: Reports systems reviewed and no addt'l complaints, except as documented; Denies headache(s) Cardiovascular Cardiovascular: Reports systems reviewed and no addt'l complaints, except as documented; Denies chest pain or dyspnea Respiratory/Chest Respiratory/Chest: Reports systems reviewed and no addt'l complaints, except as documented Gastrointestinal Gastrointestinal: Reports systems reviewed and no addt'l complaints, except as documented; Denies abdominal pain Genitourinary Genitourinary: Reports systems reviewed and no addt'l complaints, except as documented, contractions Details: present (irregular) and movement Details: present; Denies dysuria or genital lesions Musculoskeletal Musculoskeletal: Reports systems reviewed and no addt'l complaints, except as documented Neurologic Neurologic: Reports systems reviewed and no addt'l complaints, except as documented Endocrine Endocrinology: Reports systems reviewed and no addt'l complaints, except as documented Vital Signs Vital Signs Vital Signs: 04/05/21 19:36 04/06/21 00:00 04/06/21 00:06 Temperature 98.4 F Temperature Source Temporal Temporal Pulse Rate 84 80 Blood Pressure 127/61 H 135/72 H BP Systolic 127 135 BP Diastolic 61 72 Pulse Ox 04/06/21 00:07 04/06/21 04:43 04/06/21 07:14 Temperature 98.4 F 98.4 F Temperature Source Pulse Rate 94 76 90 Blood Pressure 130/73 H 122/73 H BP Systolic 130 122 BP Diastolic 73 73 Pulse Ox 98 04/06/21 08:03 04/06/21 09:03 04/06/21 09:04 Temperature 98.2 F 98.4 F Temperature Source Pulse Rate 80 75 88 Blood Pressure 112/61 132/60 H BP Systolic 112 132 BP Diastolic 61 60 Pulse Ox 97 04/06/21 09:57 04/06/21 10:00 04/06/21 10:02 Temperature Temperature Source Pulse Rate 90 100 97 Blood Pressure 135/79 H BP Systolic 135 BP Diastolic 79 Pulse Ox 99 98 04/06/21 10:05 04/06/21 10:07 04/06/21 10:10 Temperature Temperature Source Pulse Rate 100 100 101 H Blood Pressure 141/85 H 132/74 H BP Systolic 141 132 BP Diastolic 85 74 Pulse Ox 98 04/06/21 10:12 04/06/21 10:17 04/06/21 10:22 Temperature Temperature Source Pulse Rate 98 92 96 Blood Pressure 133/84 H 127/71 H BP Systolic 133 127 BP Diastolic 84 71 Pulse Ox 98 99 99 04/06/21 10:25 04/06/21 10:27 04/06/21 10:31 Temperature Temperature Source Pulse Rate 85 82 Blood Pressure 147/66 H 139/67 H BP Systolic 147 139 BP Diastolic 66 67 Pulse Ox 98 04/06/21 10:32 04/06/21 10:37 04/06/21 10:41 Temperature Temperature Source Pulse Rate 84 85 81 Blood Pressure 136/71 H 137/69 H BP Systolic 136 137 BP Diastolic 71 69 Pulse Ox 98 98 04/06/21 10:42 04/06/21 10:46 04/06/21 10:47 Temperature Temperature Source Pulse Rate 83 93 Blood Pressure 136/77 H BP Systolic 136 BP Diastolic 77 Pulse Ox 98 98 04/06/21 11:14 04/06/21 12:15 04/06/21 12:16 Temperature 98.2 F 98.1 F Temperature Source Pulse Rate 76 78 Blood Pressure 133/69 H 128/66 H BP Systolic 133 128 BP Diastolic 69 66 Pulse Ox 99 04/06/21 13:12 04/06/21 13:13 04/06/21 13:17 Temperature 98.2 F Temperature Source Pulse Rate 82 75 83 Blood Pressure 131/70 H BP Systolic 131 BP Diastolic 70 Pulse Ox 100 100 04/06/21 13:23 04/06/21 13:40 04/06/21 13:47 Temperature 98.2 F Temperature Source Pulse Rate 86 92 Blood Pressure BP Systolic BP Diastolic Pulse Ox 98 99 Weight Weight: 199 lb 15.348 oz Body Mass Index (BMI) 31.3 Physical Exam Const alert, oriented x3, no apparent distress and healthy appearing HEENT normocephalic and moist oral mucous membranes Head and Scalp: atraumatic Neck full ROM, no lymphadenopathy, supple and thyroid normal General: trachea midline Lymph Lymphatic: no lymphadenopathy noted Chest inspection of chest normal Resp normal respiratory effort Cardio regular rate GI normal to inspection, nondistended, normoactive bowel sounds, soft to palpation and non-tender Inspection: gravid external exam normal Manual OB Exam: estimated gestational size appropriate, presentation cephalic, dilated, effaced and station Extremity normal to inspection General Extremity: Negative for edema Skin no rashes or lesions noted Neuro no focal motor deficits and deep tendon reflexes 2+ bilaterally Motor Exam: strength 5/5 throughout and clonus absent Psych mental status grossly normal Labs Labs Labs: Blood Type B POSITIVE Antibody Screen NEGATIVE Hct 32.9 % (37-47) L Hgb 10.5 g/dL (12.0-15.0) L Pap Smear Negative Obstetrics US Syphilis Total Ab Non-reactive Rubella IgG Antibody Reactive (Nonreactive) Hep Bs Antigen Non-Reactive (Nonreactive) Neisseria gonorrhoeae DNA (ADALBERTO) Negative (Negative) HIV 1&2 Antibody Non-Reactive (Nonreactive) C.trachomatis DNA (PCR) Negative (Negative) Glucose 1 Hr 50 gm 100 mg/dL (70-140) Rhogam given: No Miscellaneous Test Assessment & Plan (1) : QUALIFIERS: Weeks of gestation: 38 weeks Qualified Code(s): Z3A.38 - 38 weeks gestation of COMMENT: genetics- low risk, declines carrier, and ntd screening. anatomy normal; GBS NEG (2) Supervision of high risk , antepartum: COMMENT: PRR SUSANA 04/13/21 boy Eleonora PC: Frank Spouse: Esdras (3) Chronic hypertension affecting : COMMENT: On labetalol in last preg. No meds now. Baseline PreE labs nl. declines ASA. Discussed testing and likely delivery at 38-39w. (4) COVID-19: COMMENT: Had all symptoms at ~7 weeks. Antibody testing ordered at NO. (5) Gestational thrombocytopenia: PLAN: iol cytotec then pitocin epi prn
--- NOTE | 2021-04-06 14:29 | EX.PCM.OBRPT ---
Assessment & Plan (1) : QUALIFIERS: Weeks of gestation: 38 weeks Qualified Code(s): Z3A.38 - 38 weeks gestation of COMMENT: genetics- low risk, declines carrier, and ntd screening. anatomy normal; GBS NEG (2) Supervision of high risk , antepartum: COMMENT: PRR SUSANA 04/13/21 mumtaz Crews PC: Frank Spouse: Esdras (3) Chronic hypertension affecting : COMMENT: On labetalol in last preg. No meds now. Baseline PreE labs nl. declines ASA. Discussed testing and likely delivery at 38-39w. (4) COVID-19: COMMENT: Had all symptoms at ~7 weeks. Antibody testing ordered at NOB. (5) Gestational thrombocytopenia: (6) Vaginal delivery: COMMENT: SM 39 cHTN Zeferino boy Maternal Data Information SUSANA Calculator Estimated Delivery Date Method Current WG Current Estimate 04/13/21 LMP (Certain) 39w 0d Other Estimates 04/15/21 Ultrasound #1 38w 5d Vaginal Delivery Operative Information Pre-Operative Diagnosis: IOL Post-Operative Diagnosis: same Surgery / Procedure Performed: Spontaneous Vaginal Delivery Type of Anesthesia: Epidural Special Medications: none Estimated Blood Loss: 100 Fluids Replaced: crystalloid Findings Description of Procedure: Patient began pushing and delivered the head in the [ELLEN] presentation. The head was delivered atraumatically . The anterior and posterior shoulders delivered without complication followed by the rest of the infant and the was placed on the maternal abdomen. Delayed cord clamping was employed for approximately 60 seconds. Cord was clamped and cut and gentle traction was applied to the cord and the placenta delivered spontaneously immediately following it was noted to be intact with three-vessel cord. The perineum and vagina were inspected and [noted to have no laceration]. EBL was [100 cc]. Patient and tolerated delivery well. Presentation: ELLEN Amniotic Membrane Rupture Type: Artificial Amniotic Fluid Description: Clear Placental Delivery Description: Spontaneous Placenta Disposition: [facility] Cord Vessel Description: 3 Vessels Cord Entanglement: None Delayed Cord Clamping: Yes Post Vaginal Delivery Medications Given After Delivery: IV Pitocin Episiotomy Description: None Laceration: None Complication Complications: None Procedures Urinary/Genital [id number]: [id number] Vaginal Delivery [facility]
--- NOTE | 2021-04-06 15:00 | DCINST_ITS ---
Discharge Instructions Procedure Vaginal Delivery Diet Discharge Diet: No restrictions Activity Discharge Activity: Return to Normal Activity, May Not Drive (while taking narcotic pain medications.) and May Shower May resume sexual activity in: 4-6 weeks Dressing / Incision Call your doctor if your incision/area has: Continuous Slow Oozing, Sudden Increased Bleeding, Increased Pain/ Swelling, Increased Redness and Foul Smelling Discharge Follow Up Care Please Follow Up With: Melida Alvarez MD When: Call [phone] to make an appointment with your doctor in 6 weeks. If you had elevated blood pressure or 4th degree laceration, you will need to be seen in 2 weeks. Test Results: Test results from this visit will be discussed in further detail at your follow-up appointment, if applicable. Discharge Plan Admission Admit Date/Time: 04/05/21 18:40 Primary Reason for Your Visit: vaginal delivery Attending Provider: Meilda Alvarez Primary Care Provider: Arcelia Huston NP Discharge Orders/Prescriptions Prescriptions: No Action PNV-DHA 27 mg iron-1 mg -300 mg capsule 1 cap PO DAILY RF: 0 Referrals / Follow Up: Arcelia Huston NP, [employer] [Primary Care Provider] - Disposition Disposition (needs filled in before D/C Order can be placed): Home, Self Care
[2021-04-06 15:47] LABS: Platelet Count 114 K/mm3 (150-450)
[2021-04-07 03:48] VITALS: BP 124/67; PULSE 76; RESP 18
--- NOTE | 2021-04-07 06:36 | PCM.PN.OB ---
Subjective Subjective Patient doing well without complaints. Tolerating PO. Ambulating and voiding without difficulty. feeding well. Denies chest pain, shortness of breath, calf pain/swelling, fevers, chills, lightheadedness. Objective Data Objective Data Vital Signs: Vital Signs Temp Pulse Resp BP Pulse Ox 97.4 F L 76 18 124/67 H 98 04/06/21 20:22 04/07/21 03:48 04/07/21 03:48 04/07/21 03:48 04/06/21 15:43 Oxygen Delivery Method Room Air Weight: 199 lb 15.348 oz Body Mass Index (BMI) 31.3 Intake & Output: Intake and Output for Last 24 Hours 04/05/21 04/06/21 04/07/21 23:59 23:59 23:59 Intake Total 2093.77 / 2093.77 Output Total 1900 / 1900 Balance 193.77 / 193.77 Lab / Micro Data Result Diagrams: 04/06/21 15:40 Labs: Laboratory Results - last 24 hr 04/06/21 09:00: Plt Count 101 L 04/06/21 15:40: Plt Count 114 L Micro: Microbiology 04/05/21 19:55 Nasal Secretion SARS-CoV-2 Antigen (Rapid) - Final ROS Constitutional Constitutional: Reports systems reviewed and no addt'l complaints, except as documented Cardiovascular Cardiovascular: Reports systems reviewed and no addt'l complaints, except as documented Respiratory/Chest Respiratory/Chest: Reports systems reviewed and no addt'l complaints, except as documented Gastrointestinal Gastrointestinal: Reports systems reviewed and no addt'l complaints, except as documented Physical Exam Const alert, oriented x3 and no apparent distress HEENT Head and Scalp: atraumatic Resp normal respiratory effort GI soft to palpation and non-tender Bimanual Exam - Vag & Uterus: uterus non-tender Uterus Palpation: uterus fundus firm (below Umbilicus) Assessment & Plan (1) Vaginal delivery: COMMENT: SM 39 cHTN Ray[place] boy PLAN: routine care [facility]
[2021-04-07 08:24] VITALS: BP 138/75; PULSE 74
[2021-04-07 08:28] VITALS: BP 138/75; PULSE 74; RESP 16; TEMP 36.7
[2021-04-07] MEDS: Acetaminophen 500 MG Tablet 1000 MG PO (08:38)
[2021-04-07] MEDS: Naproxen 500 MG Tablet PO (11:22)
[2021-04-07 12:30] VITALS: BP 121/66; PULSE 83; RESP 16; TEMP 36.8
[2021-04-07 12:31] VITALS: BP 121/66; PULSE 83
== END 2021-04-07 15:55 | disposition home or self-care (01) | DRG 806 ==
PROVIDERS: Anesthesiology; Admitting Provider Obstetrics & Gynecology; PCP Nurse Practitioner; Visit Provider Obstetrics & Gynecology
DX: O10.92 Unspecified pre-existing hypertension complicating childbirth (principal); O99.12 Other diseases of the blood and blood-forming organs and certain disorders involving the immune mechanism complicating childbirth; Z37.0 Single live birth; D69.6 Thrombocytopenia, unspecified; Z3A.38 38 weeks gestation of pregnancy; Z86.16 Personal history of COVID-19
CPT/HCPCS: 59025; 59050; 85025; 85049; 86850; 86900; 86901; 87426; 99218; J7120; A4216; G0378; J3490

== ENCOUNTER 2021-08-31 03:27 | Emergency (ER) | payer OTHER, SELFPAY ==
[2021-08-31 03:28] VITALS: BP 168/91; PULSE 87; RESP 16; TEMP 36.6; O2SAT 100; BMI 26.6
--- NOTE | 2021-08-31 03:47 | RAD_ITS ---
STUDY: X-RAY - SOFT TISSUE NECK REASON FOR EXAM: Female, 26 years old. pain TECHNIQUE: 2 view(s) of the neck were obtained. COMPARISON: None. FINDINGS: Normal visualized nasopharynx, oropharynx, hypopharynx. Normal epiglottis. Normal visualized subglottic tracheal air column. Normal prevertebral soft tissue structures. Normal visualized osseous structures. The soft tissue structures are unremarkable. RAD/Neck for Soft Tissue IMPRESSION: Normal x-ray soft tissue neck. Electronically Signed: Harmeet New MD at 4:23 EST ,
--- NOTE | 2021-08-31 04:04 | EDS_ITS ---
HPI History of Present Illness Chief Complaint: Sore Throat Narrative Narrative: Patient is a 26-year-old female who states on Thursday she developed a mild fever with sore throat and slight congestion and cough. She reports she went to an urgent care the following day and tested negative for strep and had an outpatient Covid test obtained. Patient states that she now feels like there is something stuck in the middle of her throat. She denies any trauma and states that she is still able to eat and drink. She states however that with the change/worsening symptoms she was concerned and therefore comes to the ER for evaluation [facility] Medical History Breech presentation Chronic hypertension Gestational HTN Gestational thrombocytopenia Kidney infection Liver hemangioma Home Medications multivitamin no.47-iron fum 27 mg-folate no.1 1 mg-dha 300 mg capsule 1 cap PO DAILY 09/04/20 [History Last Taken 1 Day Ago ~04/04/21] prednisone 40 mg PO DAILY 5 Days #10 tab 08/31/21 [Rx Last Taken Unknown] Allergy/AdvReac Type Severity Reaction Status Date / Time codeine Allergy Intermediate Nausea Verified 08/31/21 03:31 Sulfa (Sulfonamide Allergy Mild Nausea Verified 08/31/21 03:31 Antibiotics) Family History Mother Hyperlipidemia Father Hyperlipidemia Surgical History History of removal of cyst (~2013) [place] teeth removed Social History Smoking Status: Never smoker alcohol intake: never substance use type: does not use caffeine: No what type of physical activity do you participate in: none seatbelt use: always do you feel safe at home: Yes additional social history: [employer] 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 ROS ROS ED Constitutional Constitutional ED: Denies chills or fever(s) ENT ENT ED: Reports rhinorrhea and sore throat Cardiovascular Cardiovascular: Denies chest pain Respiratory/Chest Respiratory/Chest: Reports cough; Denies dyspnea Gastrointestinal Gastrointestinal: Denies abdominal pain, diarrhea, nausea or vomiting Genitourinary Genitourinary ED: Denies dysuria Musculoskeletal Musculoskeletal: Denies myalgias Integumentary Denies rash Neurologic Neurologic: Denies headache(s) Hematologic/Lymphatic Hematologic/Lymphatic: Denies easy bleeding or easy bruising EXAM Physical Exam Const Vital Signs: 08/31/21 03:28 Temperature 97.8 F Temperature Source Temporal Pulse Rate 87 Respiratory Rate 16 Blood Pressure 168/91 H Blood Pressure Mean 116 Pulse Ox 100 Oxygen Delivery Method Room Air Positive well nourished and well developed General Appearance ED: well developed HEENT Reports moist mucous membranes HEENT Narrative: There is cobblestoning in the posterior pharynx with mild erythema present and a faint exudate on the left tonsil. However there is no trismus or tonsillar hypertrophy change in voice or difficulty with secretions. No hard palate petechiae noted either. Eyes PERRL and EOMs intact bilaterally Neck supple Neck Narrative: Positive anterior cervical lymphadenopathy noted. There is no crepitance or pain with external regulation of the thyroid cartilage Resp normal respiratory effort and clear to auscultation bilaterally Cardio regular rate and regular rhythm Extremity normal to inspection Neuro oriented x3 and CN's II-XII intact bilaterally Sensorium / Orientation: alert Motor Exam: strength 5/5 throughout Psych mental status grossly normal Skin no rashes or lesions noted MDM MDM MDM Narrative Medical decision making narrative: Patient presented to the ER afebrile with no obvious physical exam findings for peritonsillar and retropharyngeal abscess. She already reported having a negative strep test and outpatient Covid test obtained so I felt no need to repeat these. With her report of abnormal/worsening sensation in the mid throat I did elect to perform a soft tissue neck x-ray. X-ray showed no acute findings. Patient was treated with viscous lidocaine and Decadron and on reevaluation reports feeling somewhat better and remains in no acute distress. Therefore at this time as patient has no signs of airway compromise and her x-ray does not show changes to suggest free air or epiglottitis she is safe for discharge with symptomatic care. Radiography Diagnostic Testing: Clinical Impression(s) from Imaging Studies Soft Tissue Neck X-Ray 08/31/21 03:47 IMPRESSION: Normal x-ray soft tissue neck. Electronically Signed: Harmeet New MD at 4:23 EST , Discharge Plan Triage Chief Complaint: Sore Throat ED Provider: Marcell Bautista Dx/Rx/DC Orders Clinical Impression: Pharyngitis Instructions: ED Pharyngitis, Viral Prescriptions: New prednisone 20 mg tablet 40 mg PO DAILY 5 Days Qty: 10 RF: 0 No Action PNV-DHA 27 mg iron-1 mg -300 mg capsule 1 cap PO DAILY RF: 0 Primary Care Provider: Arcelia Huston NP Referrals: Arcelia Huston NP, [facility] [Primary Care Provider] - Disposition Disposition: Home, Self Care
[2021-08-31] MEDS: dexAMETHasone 10 MG/ML Vial PO.IVFORM (04:08)
[2021-08-31 04:45] VITALS: BP 158/61; PULSE 79; RESP 18
== END 2021-08-31 23:59 | disposition home or self-care (01) ==
PROVIDERS: Emergency Provider Emergency Medicine; PCP Nurse Practitioner; Visit Provider Emergency Medicine
DX: J02.9 Acute pharyngitis, unspecified (principal)
CPT/HCPCS: 70360; 96374; 99283

== ENCOUNTER → 2023-10-02 | Outpatient (CLI) | payer OTHER, SELFPAY ==
--- OUTSIDE RECORDS SUMMARY | 2023-10-02 11:51 | XMS RPT_ITS | CCD ---
Author Name Unknown Address [address] [place] [address] Organization [facility] Care Team Providers [employer] Impregnating Range Tender Name Role Phone MELIDA RUTLEDGE Attending UnavailGORGE Alvarenga Referring Unavailable YUDY AGEE Primary Care Unavailable Arcelia Huston Unavailable Tae Beltran Unavailable Matt Tabares Unavailable Unavailable Unavailable Unavailable Amisha Lugo Unavailable Unavailable Matt Tabares Unavailable Unavailable Gravius, Mini Unavailable Unavailable Janine Zacarias Unavailable Matt Heredia Unavailable Unavailable Sharlene Longoria Unavailable Unavailable Arcelia Huston CNP Unavailable Matt Heredia LPN Unavailable Unavailable Unavailable Unavailable Allergies Allergy Classification Reported Allergen(s) Allergy Type Date of Onset Reaction(s) Facility (16 sources) Codeine; Translations: [Codeine Sulfate *ANALGESICS - OPIOID*] Drug Allergy [facility] Work Phone: Medications Completed/Discontinued Medications Medication Drug Class(es) Dates Sig (Normalized) Sig (Original) labetalol hydrochloride 100 mg oral tablet (16 sources) beta-Adrenergic Maria Elena Start: 03-14-2019 End: 06-06-2019 take 1 tablet by mouth twice daily Labetalol HCl 100 MG Oral Tablet 1 (one) Tablet bid for 0 days Quantity: 60 {Tablet} Refills: 3 Ordered: 06-Jun-2019 Matt Heredia LPN Start : 14-Mar-2019 End : 06-Jun-2019 Discontinued Oral Tablet (15 sources) Oral Tablet Inactive Problems Active Problems Problem Classification Problem Date Documented Da te Episodic/Chronic Conduction disorders (20 sources) Right bundle branch block; Translations: [Right bundle-branch block] 03-16-2019 Chronic Past or Other Problems Problem Classification Problem Date Documented Da te Episodic/Chronic Unclassified (15 sources) 1 Pregnacy and live 03-16-2019 Unclassified (20 sources) Mother currently breast-feeding; Translations: [Breast feeding status of mother] 03-16-2019 Unclassified (15 sources) Family history of hypertension Unclassified (15 sources) BMI 26.0-26.9,adult Unclassified (13 sources) Renal mass, left Results Test Name Value Interpretation Reference Range Facil ity Vital Signs Date Time Vital Sign Value Performing Clinician Facility 06-15-2020 10:50-0500 BMI (Body Mass Index) 21.46 kg/m2 MirthaKatrin Huston RADIATION MONITOR Work Phone: [facility] Work Phone: 06-15-2020 10:50-0500 Body Temperature 98.4 [degF] Arcelia Powernarciso RADIATION MONITOR Work Phone: [facility] Work Phone: 06-15-2020 10:50-0500 Body weight 62.14 kg Arcelia Powernarciso RADIATION MONITOR Work Phone: [facility] Work Phone: 06-15-2020 10:50-0500 BSA (Body Surface Area) 1.72 m2 Arcelia Powernarciso RADIATION MONITOR Work Phone: [facility] Work Phone: 06-15-2020 10:50-0500 Height 170.18 cm Arcelia Powernarciso RADIATION MONITOR Work Phone: [facility] Work Phone: 05-25-2020 11:00-0400 BMI (Body Mass Index) 21.46 kg/m2 Minisofiya Sandsjovita EXHAUST MACHINE OPERATOR [facility] Work Phone: 05-25-2020 11:00-0400 Body Temperature 97.3 [degF] Mini Gravius EXHAUST MACHINE OPERATOR [facility] Work Phone: Encounters Encounter Date Encounter Type Care Provider Facility Start: 06-15-2020 End: 06-15-2020 Office outpatient visit 15 minutes Arcelia Jannetnarciso [facility] Start: 05-30-2020 End: 05-30-2020 Annotation/Addendum Arcelia Huston [facility] Start: 05-30-2020 End: 05-30-2020 Annotation/Addendum Arcelia Janneta [facility] Start: 05-25-2020 End: 05-25-2020 Office outpatient visit 25 minutes Arcelia Jannetnarciso [facility] Start: 12-30-2019 End: 12-30-2019 Office outpatient visit 15 minutes Arcelia Jannetnarciso [facility] Start: 06-06-2019 End: 06-06-2019 Office outpatient visit 15 minutes Arcelia Robel [facility] Start: 03-29-2019 End: 03-29-2019 Lab Order Arcelia Robel [facility] Start: 03-18-2019 End: 03-18-2019 Lab Order Arcelia Huston [facility] Start: 03-16-2019 End: 03-14-2019 Annotation/Addendum Arcelia Huston [facility] Start: 03-16-2019 End: 03-16-2019 Office outpatient new 45 minutes Arcelia Jannet [facility] Start: 10-28-2018 End: 10-28-2018 Patient encounter procedure MELIDA RUTLEDGE [facility] Procedures Date Procedure Procedure Detail Performing Clinician Start: 05-20-2021 End: 05-22-2021 Field Worker Office Visit Report Comments: See Note; NOTES: [facility] [address] [place] [address] OFFICE VISIT Date of Service: 05/20/21 MR#: [id number] Acct: [id number] Name: REGGIE MILLER Rep #: [id number] : 1995 Provider: Dr. Melida solares MD Age/Sex: 26/F Location: [facility] Status: Signed Intake Vital Signs 05/20/21 14:04 Height 5 ft 7 in Weight: 174 lb BMI 27.2 BP 130/72 H Intake Visit Reasons: 6WK PP / DECLINED IUD Chief Complaint: 6w pp declines IUD Visualizer Required: No Is patient in pain?: No Allergies codeine Allergy (Intermediate, Verified 05/20/21 14:04) Nausea Sulfa (Sulfonamide Antibiotics) Allergy (Mild, Verified 04/05/21 08:32) Nausea Medications multivitamin no.47-iron fum 27 mg-folate no.1 1 mg-dha 300 mg capsule 1 cap PO DAILY 09/04/20 [History Confirmed 05/20/21] : Yes PFSH Medical History Breech presentation Chronic hypertension Gestational HTN Gestational thrombocytopenia Kidney infection Liver hemangioma Surgical History History of removal of cyst ( 2013) [place] teeth removed Family History Mother Hyperlipidemia Father Hyperlipidemia Social History Smoking Status: Never smoker alcohol intake: never substance use type: does not use caffeine: No what type of physical activity do you participate in: none seatbelt use: always do you feel safe at home: Yes additional social history: [employer] 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 Date Name GA/Weeks Outcome Route Bth Weight Infant Gen Labor Lgth Anesthesia Del Locat Provider FOB Unknown [place] 38 live - full term Male SM 02/23/19 [place] 38 live - full term 8lbs 2oz Male 24 hours epidural [facility] Marcanthony Delivery Date: No notes to display Delivery Date: 02/23/19 IoL chronic hypertension; 1st degree laceration Yanique Blackburn Depression Screen PHQ-2/9 PHQ-2 Over the last 2 weeks, how often have you been bothered by any of the following problems? 1. Little interest or pleasure in doing things: not at all 2. Feeling down, depressed, or hopeless: not at all Total score: 0 Post HPI 6WK PP / DECLINED IUD : Details: REGGIE MILLER is a 26 year old who presents for her post visit. Infant Feeding: Breast Menses resumed: No Nesbitt since delivery: Yes Emotional Support: Yes Last Pap:: 2020 Details: REGGIE MILLER is a 26 year old who presents for her post visit. ROS Const Reports system reviewed and no additional complaints, except as documented GI Reports system reviewed and no additional complaints, except as documented, Denies bloating, Denies constipation, Denies nausea and Denies vomiting Reports system reviewed and no additional complaints, except as documented, Denies abnormal vaginal bleeding, Denies pelvic pain, Denies sexual dysfunction, Denies urinary incontinence, Denies urinary hesitancy, Denies urinary urgency and Denies vaginal discharge Skin/Breast Reports system reviewed and no additional complaints, except as documented and Reports as per HPI Psych Reports as per HPI Exam Const General: cooperative, healthy appearing, comfortable and no acute distress HENMT Head: normal to inspection Neck Neck: normal visual inspection and no lymphadenopathy Thyroid: thyroid normal Chest Breast inspection: normal inspection of the breasts and normal inspection of the axillae Breast palpation: normal palpation of the breasts and normal palpation of the axillae Resp Effort Inspection: normal respiratory effort GI Inspection: normal to inspection Palpation: soft, no hepatosplenomegaly and nontender General: bladder normal to palpation External Female Exam: normal external appearance and normal appearance of the urethra Urethra: normal appearance of the urethra Speculum Exam - Vagina: normal appearance of the vagina and normal vaginal discharge Speculum Exam - Cervix: normal appearance of the cervix Bimanual Exam- Vagina Uterus: normal bimanual exam, uterine size normal, bladder normal to palpation, uterine shape normal and non-tender Bimanual Exam- Adnexa, other: normal adnexae and normal Pelvic Support: normal Skin General: no rashes or lesions noted Coding Level of Care Code No Charge Diagnoses care and examination Z39.2 Assessment and Plan Assessment and Plan (1) care and examination: Plan - Dr. Melida Rutledge MD: Cervical cancer screening: pap up to date Contraceptive plans: NFP Complications: none Follow up for annual exams or sooner if indicated. 05/20/21 1436 <Electronically signed by Melida Rutledge MD> Date Melida Rutledge MD Cosigner Signature: Date (if applicable) CC: Arcelia Huston ANGEL Work Phone: Start: 04-05-2021 End: 04-05-2021 Field Worker Office Visit Report Comments: See Note; NOTES: [facility] [address] [place], [place] [address] OFFICE VISIT Date of Service: 04/05/21 MR#: [id number] Acct: [id number] Name: REGGIE MILLER Rep #: [id number] : 1995 Provider: Dr. Myla briceno MD Age/Sex: 26/F Location: [facility] [place] Status: Signed Intake Vital Signs 04/05/21 08:32 Height 5 ft 7 in Weight: 204 lb BMI 31.9 BP 144/90 H Intake Visit Reasons: 39 WK OB / NST Visualizer Required: No Is patient in pain?: No Allergies codeine Allergy (Intermediate, Verified 04/05/21 08:32) Nausea Sulfa (Sulfonamide Antibiotics) Allergy (Mild, Verified 04/05/21 08:32) Nausea Medications multivitamin no.47-iron fum 27 mg-folate no.1 1 mg-dha 300 mg capsule cap PO 09/04/20 [History Confirmed 04/05/21] Last Menstral Period: 07/07/20 Zika: Zika virus screening: Negative : No PFSH PFSH Medical History Breech presentation Chronic hypertension Gestational thrombocytopenia Kidney infection Liver hemangioma Surgical History History of removal of cyst ( 2013) Family History Mother Hyperlipidemia Father Hyperlipidemia Social History Smoking Status: Never smoker alcohol intake: never substance use type: does not use caffeine: No what type of physical activity do you participate in: none seatbelt use: always do you feel safe at home: Yes additional social history: [employer] 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 Date Name GA/Weeks Outcome Route Bth Weight Infant Gen Labor Lgth Anesthesia Del Jabieratmary Provider FOB 02/23/19 [place] 38 live - full term 8lbs 2oz Male 24 hours epidural [facility] Marcanthony Delivery Date: 02/23/19 IoL chronic hypertension; 1st degree laceration Yanique Blackburn HPI 39 WK OB / NST Details: REGGIE MILLER is a 26 year old who presents for routine OB visit. OB Visit SUSANA Calculator Estimated Delivery Date Method Current WG Current Estimate 04/13/21 LMP (Certain) 38w 6d Other Estimates 04/15/21 Ultrasound #1 38w 4d Expected Delivery Route/Plan plan IOL at 38-39 - wants to delay IOL until at least 39w Labor Preferences- labor support person: Esdras labor intervention preferences: minimal pain management options preferred: planning epidural cut cord/dad catch: [] : yes PP control planned: declines discussed possible routes of delivery and associated risks: [] special requests: [] Specific Issue/Plans covid status: postitive in flu vaccine: na tdap vaccine: declined rhogam: na LARC form signed: 02/15 movement and labor precautions reviewed. Problem list reviewed and updated with the most current plan of care details and appropriate orders placed. Relevant counseling for the gestational age provided. Continue routine care and follow up unless otherwise noted in visit notes/problem list details Initial Weight: 155 lb Date -???-???-???-???-???-???-???- ???-???-???-???-???- EGA Weight BP Urine Prot -???-???-???-???-???-???-???- ???-???-???-???-???- Glucose FHR FuHt Pres Dilation -???-???-???-???-???-???-???- ???-???-???-???-???- Effaced St Visit Note 09/14/20 -???-???-???-???-???-???-???- ???-???-???-???-???- 9w 6d 154 lb (-16 oz) 140/82 -???-???-???-???-???-???-???- ???-???-???-???-???- 168 -???-???-???-???-???-???-???- ???-???-???-???-???- 09/28/20 -???-???-???-???-???-???-???- ???-???-???-???-???- 11w 6d 118/60 -???-???-???-???-???-???-???- ???-???-???-???-???- -???-???-???-???-???-???-???- ???-???-???-???-???- RN visit for BP check 10/12/20 -???-???-???-???-???-???-???- ???-???-???-???-???- 13w 6d 158 lb 6 oz (+3 lb 6 oz) 136/78 -???-???-???-???-???-???-???- ???-???-???-???-???- 160 -???-???-???-???-???-???-???- ???-???-???-???-???- GP - no cram ping or bleeding. PRR. Anatomy reviewed. 11/09/20 -???-???-???-???-???-???-???- ???-???-???-???-???- 17w 6d 168 lb (+13 lb) 138/68 Negative -???-???-???-???-???-???-???- ???-???-???-???-???- Negative 145 -???-???-???-???-???-???-???- ???-???-???-???-???- Sm- no vb lo f cramping discussed chtn management 12/07/20 -???-???-???-???-???-???-???- ???-???-???-???-???- 21w 6d 179 lb (+24 lb) 120/60 -???-???-???-???-???-???-???- ???-???-???-???-???- 140 -???-???-???-???-???-???-???- ???-???-???-???-???- SM- no vb cr amping 12/17/20 -???-???-???-???-???-???-???- ???-???-???-???-???- 23w 2d 180 lb (+25 lb) 130/62 Trace -???-???-???-???-???-???-???- ???-???-???-???-???- Negative 146 -???-???-???-???-???-???-???- ???-???-???-???-???- -work in f or DFM. FHT easily noted with doppler. FM also heard. NO VB, LOF. 01/11/21 -???-???-???-???-???-???-???- ???-???-???-???-???- 26w 6d 189 lb 2 oz (+34 lb 2 oz) 118/70 Negative -???-???-???-???-???-???-???- ???-???-???-???-???- Negative 150 27 -???-???-???-???-???-???-???- ???-???-???-???-???- SM- no vb lo f good fm no regular ctx 02/01/21 -???-???-???-???-???-???-???- ???-???-???-???-???- 29w 6d 193 lb (+38 lb) Negative -???-???-???-???-???-???-???- ???-???-???-???-???- Negative 150 30 -???-???-???-???-???-???-???- ???-???-???-???-???- SM- no vb lo f good fm no regular ctx 02/15/21 -???-???-???-???-???-???-???- ???-???-???-???-???- 31w 6d 193 lb (+38 lb) -???-???-???-???-???-???-???- ???-???-???-???-???- 130 -???-???-???-???-???-???-???- ???-???-???-???-???- GP - no LOF, VB, dFM, ctx. Discussed control. LARC form signed. 02/22/21 -???-???-???-???-???-???-???- ???-???-???-???-???- 32w 6d 193 lb 8 oz (+38 lb 8 oz) 138/80 Negative -???-???-???-???-???-???-???- ???-???-???-???-???- Negative 140 -???-???-???-???-???-???-???- ???-???-???-???-???- GP - NST onl y. Reactive. 03/01/21 -???-???-???-???-???-???-???- ???-???-???-???-???- 33w 6d 197 lb (+42 lb) 136/80 Negative -???-???-???-???-???-???-???- ???-???-???-???-???- Negative 130 -???-???-???-???-???-???-???- ???-???-???-???-???- SM- nst and no vb lof good f no regular ctx discussed IOL 38-39 03/08/21 -???-???-???-???-???-???-???- ???-???-???-???-???- 34w 6d 196 lb (+41 lb) 140/80 140/80 Negative -???-???-???-???-???-???-???- ???-???-???-???-???- Negative 130 -???-???-???-???-???-???-???- ???-???-???-???-???- GP - nst onl y. BP elevated. Sent for labs 03/15/21 -???-???-???-???-???-???-???- ???-???-???-???-???- 35w 6d 198 lb (+43 lb) -???-???-???-???-???-???-???- ???-???-???-???-???- 130 -???-???-???-???-???-???-???- ???-???-???-???-???- SM- no vb lo f good fm no regular ctx gbs next week 03/22/21 -???-???-???-???-???-???-???- ???-???-???-???-???- 36w 6d 201 lb 4 oz (+46 lb 4 oz) 138/82 Negative -???-???-???-???-???-???-???- ???-???-???-???-???- Negative 120 36 Cephalic 0 -???-???-???-???-???-???-???- ???-???-???-???-???- GP - no LOF, VB, DFM, ctx. GBS today. 03/29/21 -???-???-???-???-???-???-???- ???-???-???-???-???- 37w 6d 203 lb 4 oz (+48 lb 4 oz) 138/80 -???-???-???-???-???-???-???- ???-???-???-???-???- 140 37 Cephalic 0 -???-???-???-???-???-???-???- ???-???-???-???-???- GP - no LOF, VB, DFM. Luis Alberto on NST, but not feeling them. Discussed IOL 38-39w. Wants to delay as long as possible - will discuss scheduling next week 04/05/21 -???-???-???-???-???-???-???- ???-???-???-???-???- 38w 6d 204 lb (+49 lb) 144/90 Negative -???-???-???-???-???-???-???- ???-???-???-???-???- Negative 130 38 Cephalic 0.5 -???-???-???-???-???-???-???- ???-???-???-???-???- 40 -3 GP - no LO F, VB, DFM, regular ctx. FAISAL 6 today - plan IOL this evening ACOG First Trimester First Trimester: Desire for , Alcohol, Tobacco Cessation, Illicit/Recreational Drug/Substance Use, Intimate Partner Violence, Barriers to care, Unstable Housing, Communication Barriers, Environmental/Work Hazards, Anticipated Course of Care, Toxoplasmosis Precations, Use of Any medications, Sexual activity, Exercise, Dental Care, Sauna/Hot tub use, Seat Belt use, Childbirth classes/Hospital facilities, , Travel, Indications for Ultrasound and Screening for Aneuploidy Diagnostics Diagnostics Diagnostics: Hgb 11.9 g/dL (12.0-15.0) L Hct 37.4 % (37-47) Details: HIV: Urine Culture: Sequential Screen: NIPT Screen: ROS Const Reports system reviewed and no additional complaints, except as documented Eyes Reports system reviewed and no additional complaints, except as documented ENT Reports system reviewed and no additional complaints, except as documented Card Reports system reviewed and no additional complaints, except as documented Resp Reports system reviewed and no additional complaints, except as documented GI Reports system reviewed and no additional complaints, except as documented Reports system reviewed and no additional complaints, except as documented, Denies abnormal vaginal bleeding, Denies dysuria, Denies pelvic pain, Denies vaginal discharge, Denies vaginal odor and Denies vaginal pruritus Musc Reports system reviewed and no additional complaints, except as documented Skin/Breast Reports system reviewed and no additional complaints, except as documented Neuro Yes system reviewed and no additional complaints, except as documented Psych Reports system reviewed and no additional complaints, except as documented Endo Reports system reviewed and no additional complaints, except as documented Exam Const General: cooperative, healthy appearing, comfortable, no acute distress, well developed and well groomed Nutritional Appearance: average body habitus and well nourished Orientation: alert, awake and oriented x3 HENAK Head: normal to inspection, normocephalic and atraumatic Eyes Pupils: PERRL and accommodation normal Resp Effort Inspection: normal respiratory effort, able to speak in complete sentences and symmetric chest movement Cardio Rate: regular rate GI Palpation: soft, no guarding, no masses and nontender Skin General: no rashes or lesions noted, elasticity normal and turgor normal Neuro General: patient alert, patient awake and patient oriented x3 Cranial Nerves: CN's II-XI intact bilaterally, sense of smell intact, PERRL, accommodation normal and EOM intact bilaterally Speech: speech normal Gait: normal gait Psych Appearance: grossly normal and well kempt Mental Status: mental status grossly normal Mood: congruent mood Affect: normal affect Speech and Movement: speech and movement normal Attitude: cooperative Thought Process: normal Thought Content: normal Judgment: judgment good Office Procedures Non-stress Test Non-Stress Test Indications for Monitoring: Yes hypertension Heart Rate Baseline: 130 Heart Rate Variability: moderate Movement: Present Heart Rate Accelerations: Present Decelerations: Absent Contractions: Absent Impression: Yes Reactive Non-Stress Test Results POC Urinalysis 2 Dip (Clinic) Office Urine Glucose Negative Last Edit by Jill Ellison on 04/05/21 09:05 Office Urine Protein Negative Last Edit by Jill Ellison on 04/05/21 09:05 Coding Level of Care Code OB Routine Diagnoses Gestational thrombocytopenia O99.119; D69.6 COVID-19 U07.1 Chronic hypertension affecting O10.919 Supervision of high risk , antepartum O09.90 Z3A.38 Weeks of gestation: 38 weeks CPT Codes Non-Stress Test (61423) Assessment and Plan Assessment and Plan (1) Gestational thrombocytopenia: Status: Acute (2) COVID-19: Status: Acute Comment: Had all symptoms at 7 weeks. Antibody testing ordered at NO. (3) Chronic hypertension affecting : Status: Chronic Comment: On labetalol in last preg. No meds now. Baseline PreE labs nl. declines ASA. Discussed testing and likely delivery at 38-39w. Orders: Orders: OB NST Today (4) Supervision of high risk , antepartum: Status: Acute Comment: PRR SUSANA 04/13/21 mumtaz Crews PC: Frank Spouse: Esdras (5) : Status: Acute Qualifiers: Weeks of gestation: 38 weeks Qualified Code(s): Z3A.38 - 38 weeks gestation of Comment: genetics- low risk, declines carrier, and ntd screening. anatomy normal; GBS NEG Plan Details Other Orders: Orders: POC Urinalysis 2 Dip (Clinic) Today 04/05/21 0920 <Electronically signed by Myla Sousa MD> Date Myla Sousa MD Cosigner Signature: Date (if applicable) CC: Arcelia Huston RADIATION MONITOR Work Phone: Start: 04-05-2021 End: 04-05-2021 OB Limited (No Biometrics) Comments: See Note; NOTES: [facility] Imaging Services [address] [place] [address] OB Limited (No Biometrics) MR#: [id number] Acct: [id number] Name: REGGIE MILLER Rep #: [id number] : 1995 F 26 From: Jaciel garcia MD PCP: Dr. Reina Aguirre, Status: [facility] Study: OB Limited (No Biometrics) Date of Exam: 04/05 Exam# [id number] Ordering Dr: Melida Rutledge STUDY: SECOND AND THIRD TRIMESTER OBSTETRICAL ULTRASOUND - LIMITED REASON FOR EXAM: Female, 26 years old FAISAL Only LMP: 07/07/2020. PRIOR ULTRASOUND: Comparison is made with prior study 03/29/2021. TECHNIQUE: Transabdominal TECHNICAL QUALITY: Adequate. FINDINGS: There is a single intrauterine fetus. The fetus is in a cephalic presentation. There is demonstrated cardiac activity with a heart rate of 150 bpm. There is a normal amniotic fluid volume. The largest amniotic fluid pocket measures 26 cm. The amniotic fluid index (FAISAL) is 6.1 cm. This is lower limits of normal. The placenta is anterior in location and is not low lying. There are Grade 3 placental changes. US/OB Limited (No Biometrics) IMPRESSION: Amniotic fluid index measures 6.1 cm. This is within the lower limits of normal at 38 weeks and 6 days gestation. Electronically Signed: Jaciel Galarza MD at 8:45 EDT , Service support , CC: Dr. Reina Aguirre DO; Dr. Melida Rutledge MD Commercial Loan Manager: Signed Arcelia Huston CNP Work Phone: Start: 03-29-2021 End: 03-29-2021 Field Worker Office Visit Report Comments: See Note; NOTES: [facility] [address] [place] [address] OFFICE VISIT Date of Service: 03/29/21 MR#: [id number] Acct: [id number] Name: REGGIE MILLER Rep #: [id number] : 1995 Provider: Dr. Myla briceno MD Age/Sex: 26/F Location: [facility] [place] Status: Signed Intake Vital Signs 03/29/21 08:36 Height 5 ft 7 in Weight: 203 lb 4 oz BMI 31.8 BP 138/80 H Intake Visit Reasons: 38 WK OB / NST Visualizer Required: No Is patient in pain?: No Allergies codeine Allergy (Intermediate, Verified 03/29/21 08:36) Nausea Sulfa (Sulfonamide Antibiotics) Allergy (Mild, Verified 03/29/21 08:36) Nausea Medications multivitamin no.47-iron fum 27 mg-folate no.1 1 mg-dha 300 mg capsule cap PO 09/04/20 [History Confirmed 03/29/21] Last Menstral Period: 07/07/20 Zika: Zika virus screening: Negative : No PFSH PFSH Medical History Breech presentation Chronic hypertension Gestational thrombocytopenia Kidney infection Liver hemangioma Surgical History History of removal of cyst ( 2013) Family History Mother Hyperlipidemia Father Hyperlipidemia Social History Smoking Status: Never smoker alcohol intake: never substance use type: does not use caffeine: No what type of physical activity do you participate in: none seatbelt use: always do you feel safe at home: Yes additional social history: [employer]as[employer] is [employer] 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 Date Name GA/Weeks Outcome Route Bth Weight Gen Labor Lgth Anesthesia Del [facility] Provider FOB 02/23/19 Cal[place] 38 live - full term 8lbs 2oz Male 24 hours epidural [facility] Marcanthony Delivery Date: 02/23/19 IoL chronic hypertension; 1st degree laceration Yanique Blackburn HPI 38 WK OB / NST Details: REGGIE MILLER is a 26 year old who presents for routine OB visit. OB Visit SUSANA Calculator Estimated Delivery Date Method Current WG Current Estimate 04/13/21 LMP (Certain) 37w 6d Other Estimates 04/15/21 Ultrasound #1 37w 4d Expected Delivery Route/Plan plan IOL at 38-39 - wants to delay IOL until at least 39w Labor Preferences- labor support person: Esdras labor intervention preferences: minimal pain management options preferred: planning epidural cut cord/dad catch: [] : yes PP control planned: declines discussed possible routes of delivery and associated risks: [] special requests: [] Specific Issue/Plans covid status: postitive in flu vaccine: na tdap vaccine: declined rhogam: na LARC form signed: 02/15 movement and labor precautions reviewed. Problem list reviewed and updated with the most current plan of care details and appropriate orders placed. Relevant counseling for the gestational age provided. Continue routine care and follow up unless otherwise noted in visit notes/problem list details Initial Weight: 155 lb Date -???-???-???-???-???-???-???- ???-???-???-???-???- EGA Weight BP Urine Prot -???-???-???-???-???-???-???- ???-???-???-???-???- Glucose FHR FuHt Pres Dilation -???-???-???-???-???-???-???- ???-???-???-???-???- Effaced St Visit Note 09/14/20 -???-???-???-???-???-???-???- ???-???-???-???-???- 9w 6d 154 lb (-16 oz) 140/82 -???-???-???-???-???-???-???- ???-???-???-???-???- 168 -???-???-???-???-???-???-???- ???-???-???-???-???- 09/28/20 -???-???-???-???-???-???-???- ???-???-???-???-???- 11w 6d 118/60 -???-???-???-???-???-???-???- ???-???-???-???-???- -???-???-???-???-???-???-???- ???-???-???-???-???- RN visit for BP check 10/12/20 -???-???-???-???-???-???-???- ???-???-???-???-???- 13w 6d 158 lb 6 oz (+3 lb 6 oz) 136/78 -???-???-???-???-???-???-???- ???-???-???-???-???- 160 -???-???-???-???-???-???-???- ???-???-???-???-???- GP - no cram ping or bleeding. PRR. Anatomy reviewed. 11/09/20 -???-???-???-???-???-???-???- ???-???-???-???-???- 17w 6d 168 lb (+13 lb) 138/68 Negative -???-???-???-???-???-???-???- ???-???-???-???-???- Negative 145 -???-???-???-???-???-???-???- ???-???-???-???-???- Sm- no vb lo f cramping discussed chtn management 12/07/20 -???-???-???-???-???-???-???- ???-???-???-???-???- 21w 6d 179 lb (+24 lb) 120/60 -???-???-???-???-???-???-???- ???-???-???-???-???- 140 -???-???-???-???-???-???-???- ???-???-???-???-???- SM- no vb cr amping 12/17/20 -???-???-???-???-???-???-???- ???-???-???-???-???- 23w 2d 180 lb (+25 lb) 130/62 Trace -???-???-???-???-???-???-???- ???-???-???-???-???- Negative 146 -???-???-???-???-???-???-???- ???-???-???-???-???- -work in f or DFM. FHT easily noted with doppler. FM also heard. NO VB, LOF. 01/11/21 -???-???-???-???-???-???-???- ???-???-???-???-???- 26w 6d 189 lb 2 oz (+34 lb 2 oz) 118/70 Negative -???-???-???-???-???-???-???- ???-???-???-???-???- Negative 150 27 -???-???-???-???-???-???-???- ???-???-???-???-???- SM- no vb lo f good fm no regular ctx 02/01/21 -???-???-???-???-???-???-???- ???-???-???-???-???- 29w 6d 193 lb (+38 lb) Negative -???-???-???-???-???-???-???- ???-???-???-???-???- Negative 150 30 -???-???-???-???-???-???-???- ???-???-???-???-???- SM- no vb lo f good fm no regular ctx 02/15/21 -???-???-???-???-???-???-???- ???-???-???-???-???- 31w 6d 193 lb (+38 lb) -???-???-???-???-???-???-???- ???-???-???-???-???- 130 -???-???-???-???-???-???-???- ???-???-???-???-???- GP - no LOF, VB, dFM, ctx. Discussed control. LARC form signed. 02/22/21 -???-???-???-???-???-???-???- ???-???-???-???-???- 32w 6d 193 lb 8 oz (+38 lb 8 oz) 138/80 Negative -???-???-???-???-???-???-???- ???-???-???-???-???- Negative 140 -???-???-???-???-???-???-???- ???-???-???-???-???- GP - NST onl y. Reactive. 03/01/21 -???-???-???-???-???-???-???- ???-???-???-???-???- 33w 6d 197 lb (+42 lb) 136/80 Negative -???-???-???-???-???-???-???- ???-???-???-???-???- Negative 130 -???-???-???-???-???-???-???- ???-???-???-???-???- SM- nst and no vb lof good f no regular ctx discussed IOL 38-39 03/08/21 -???-???-???-???-???-???-???- ???-???-???-???-???- 34w 6d 196 lb (+41 lb) 140/80 140/80 Negative -???-???-???-???-???-???-???- ???-???-???-???-???- Negative 130 -???-???-???-???-???-???-???- ???-???-???-???-???- GP - nst onl y. BP elevated. Sent for labs 03/15/21 -???-???-???-???-???-???-???- ???-???-???-???-???- 35w 6d 198 lb (+43 lb) -???-???-???-???-???-???-???- ???-???-???-???-???- 130 -???-???-???-???-???-???-???- ???-???-???-???-???- SM- no vb lo f good fm no regular ctx gbs next week 03/22/21 -???-???-???-???-???-???-???- ???-???-???-???-???- 36w 6d 201 lb 4 oz (+46 lb 4 oz) 138/82 Negative -???-???-???-???-???-???-???- ???-???-???-???-???- Negative 120 36 Cephalic 0 -???-???-???-???-???-???-???- ???-???-???-???-???- GP - no LOF, VB, DFM, ctx. GBS today. 03/29/21 -???-???-???-???-???-???-???- ???-???-???-???-???- 37w 6d 203 lb 4 oz (+48 lb 4 oz) 138/80 -???-???-???-???-???-???-???- ???-???-???-???-???- 140 37 Cephalic 0 -???-???-???-???-???-???-???- ???-???-???-???-???- GP - no LOF, VB, DFM. Luis Alberto on NST, but not feeling them. Discussed IOL 38-39w. Wants to delay as long as possible - will discuss scheduling next week ACOG First Trimester First Trimester: Desire for , Alcohol, Tobacco Cessation, Illicit/Recreational Drug/Substance Use, Intimate Partner Violence, Barriers to care, Unstable Housing, Communication Barriers, Environmental/Work Hazards, Anticipated Course of Care, Toxoplasmosis Precations, Use of Any medications, Sexual activity, Exercise, Dental Care, Sauna/Hot tub use, Seat Belt use, Childbirth classes/Hospital facilities, , Travel, Indications for Ultrasound and Screening for Aneuploidy Diagnostics Diagnostics Diagnostics: Glucose 1 Hr 50 gm 100 mg/dL (70-140) Hgb 11.9 g/dL (12.0-15.0) L Hct 37.4 % (37-47) Details: HIV: Urine Culture: Sequential Screen: NIPT Screen: ROS GI Denies dyspepsia, Denies nausea and Denies vomiting Denies abnormal vaginal bleeding, Denies dysuria, Denies pelvic pain, Denies vaginal discharge, Denies vaginal odor and Denies vaginal pruritus Exam Const General: cooperative, healthy appearing, comfortable, no acute distress, well developed and well groomed Nutritional Appearance: average body habitus and well nourished Orientation: alert, awake and oriented x3 HENMT Head: normal to inspection, normocephalic and atraumatic Eyes Pupils: PERRL and accommodation normal Resp Effort Inspection: normal respiratory effort, able to speak in complete sentences and symmetric chest movement Cardio Rate: regular rate GI Palpation: soft, no guarding, no masses and nontender Skin General: no rashes or lesions noted, elasticity normal and turgor normal Neuro General: patient alert, patient awake and patient oriented x3 Cranial Nerves: CN's II-XI intact bilaterally, sense of smell intact, PERRL, accommodation normal and EOM intact bilaterally Speech: speech normal Gait: normal gait Psych Appearance: grossly normal and well kempt Mental Status: mental status grossly normal Mood: congruent mood Affect: normal affect Speech and Movement: speech and movement normal Attitude: cooperative Thought Process: normal Thought Content: normal Judgment: judgment good Office Procedures Non-stress Test Non-Stress Test Indications for Monitoring: Yes hypertension Heart Rate Baseline: 140 Heart Rate Variability: moderate Movement: Present Heart Rate Accelerations: Present Decelerations: Absent Contractions: Absent Impression: Yes Reactive Non-Stress Test Coding Level of Care Code OB Routine Diagnoses Gestational thrombocytopenia O99.119; D69.6 COVID-19 U07.1 Chronic hypertension affecting O10.919 Supervision of high risk , antepartum O09.90 Z3A.37 Weeks of gestation: 37 weeks CPT Codes Non-Stress Test (50682) Assessment and Plan Assessment and Plan (1) Gestational thrombocytopenia: Status: Acute (2) COVID-19: Status: Acute Comment: Had all symptoms at 7 weeks. Antibody testing ordered at [facility]. (3) Chronic hypertension affecting : Status: Chronic Comment: On labetalol in last preg. No meds now. Baseline PreE labs nl. declines ASA. Discussed testing and likely delivery at 38-39w. Orders: Orders: OB NST Today (4) Supervision of high risk , antepartum: Status: Acute Comment: PRR SUSANA 04/13/21 boy Eleonora PC: Frank Spouse: Esdras (5) : Status: Acute Qualifiers: Weeks of gestation: 37 weeks Qualified Code(s): Z3A.37 - 37 weeks gestation of Comment: genetics- low risk, declines carrier, and ntd screening. anatomy normal; GBS NEG Plan Details Other Orders: Orders: POC Urinalysis 2 Dip (Clinic) Today 03/29/21925 <Electronically signed by Myla Sousa MD> Date Myla Sousa MD Cosigner Signature: Date (if applicable) CC: Arcelia Robel RADIATION MONITOR Work Phone: Start: 03-29-2021 End: 03-29-2021 OB Limited (No Biometrics) Comments: See Note; NOTES: [facility] Imaging Services [address] [place] [id number] OB Limited (No Biometrics) MR#: [id number] Acct: [id number] Name: REGGIE MILLER Rep #: [id number] : 1995 F 26 From: Jacob Montero MD PCP: Dr. Reina Aguirre, Status: [facility] CL Study: OB Limited (No Biometrics) Date of Exam: 03/29 Exam# [id number] Ordering Dr: Melida Rutledge STUDY: SECOND AND THIRD TRIMESTER OBSTETRICAL ULTRASOUND - LIMITED REASON FOR EXAM: Female, 26 years old. Evaluate amniotic fluid index LMP: Unknown. PRIOR ULTRASOUND: 03/22/21 TECHNIQUE: Transabdominal ultrasound evaluation was performed. FINDINGS: There is a single intrauterine fetus. The fetus is in a cephalic presentation. There is demonstrated cardiac activity with a heart rate of 153 bpm. There is a normal amniotic fluid volume. The largest amniotic fluid pocket measures 4.4 cm. The amniotic fluid index (FAISAL) is 11.4 cm. The placenta is anterior in location and is not low lying. There are Grade 3 placental changes. The cervix is not visualized. US/OB Limited (No Biometrics) IMPRESSION: Normal amniotic fluid volume. Electronically Signed: Jacob Montero MD at 9:58 EDT Tel , Service support , CC: Dr. Reina Aguirre DO; Dr. Melida Rutledge MD Commercial Loan Manager: Signed Arcelia Huston ANGEL Work Phone: Start: 03-22-2021 End: 03-22-2021 Field Worker Office Visit Report Comments: See Note; NOTES: [facility] [address] [place] [address]. [address] [place] [address] OFFICE VISIT Date of Service: 03/22/21 MR#: [id number] Acct: [id number] Name: REGGIE MILLER Rep #: [id number] : 1995 Provider: Dr. Myla briceno MD Age/Sex: 26/F Location: [facility] Status: Signed Intake Vital Signs 03/22/21 08:29 Height 5 ft 7 in Weight: 201 lb 4 oz BP 138/82 H Intake Visit Reasons: 37 WK OB / NST Visualizer Required: No Is patient in pain?: No Allergies codeine Allergy (Intermediate, Verified 03/22/21 08:29) Nausea Sulfa (Sulfonamide Antibiotics) Allergy (Mild, Verified 03/22/21 08:29) Nausea Medications multivitamin no.47-iron fum 27 mg-folate no.1 1 mg-dha 300 mg capsule cap PO 09/04/20 [History Confirmed 03/22/21] Last Menstral Period: 07/07/20 Zika: Zika virus screening: Negative : No PFSH PFSH Medical History Breech presentation Chronic hypertension Gestational thrombocytopenia Kidney infection Liver hemangioma Surgical History History of removal of cyst ( 2013) Family History Mother Hyperlipidemia Father Hyperlipidemia Social History Smoking Status: Never smoker alcohol intake: never substance use type: does not use caffeine: No what type of physical activity do you participate in: none seatbelt use: always do you feel safe at home: Yes 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 Date Name GA/Weeks Outcome Route Bth Weight Infant Gen Labor Lgth Anesthesia Del Locatn Provider FOB 02/23/19 [place] 38 live - full term 8lbs 2oz Male 24 hours epidural [facility] Marcanthony Delivery Date: 02/23/19 IoL chronic hypertension; 1st degree laceration Yanique Blackburn HPI 37 WK OB / NST Details: REGGIE MILLER is a 26 year old who presents for routine OB visit. OB Visit SUSANA Calculator Estimated Delivery Date Method Current WG Current Estimate 04/13/21 LMP (Certain) 36w 6d Other Estimates 04/15/21 Ultrasound #1 36w 4d Expected Delivery Route/Plan plan IOL at 38-39 Labor Preferences- labor support person: Esdras labor intervention preferences: minimal pain management options preferred: planning epidural cut cord/dad catch: [] : yes PP control planned: declines discussed possible routes of delivery and associated risks: [] special requests: [] Specific Issue/Plans covid status: postitive in flu vaccine: na tdap vaccine: declined rhogam: na LARC form signed: 02/15 movement and labor precautions reviewed. Problem list reviewed and updated with the most current plan of care details and appropriate orders placed. Relevant counseling for the gestational age provided. Continue routine care and follow up unless otherwise noted in visit notes/problem list details Initial Weight: 155 lb Date -???-???-???-???-???-???-???- ???-???-???-???-???- EGA Weight BP Urine Prot -???-???-???-???-???-???-???- ???-???-???-???-???- Glucose FHR FuHt Pres Dilation -???-???-???-???-???-???-???- ???-???-???-???-???- Effaced St Visit Note 09/14/20 -???-???-???-???-???-???-???- ???-???-???-???-???- 9w 6d 154 lb (-16 oz) 140/82 -???-???-???-???-???-???-???- ???-???-???-???-???- 168 -???-???-???-???-???-???-???- ???-???-???-???-???- 09/28/20 -???-???-???-???-???-???-???- ???-???-???-???-???- 11w 6d 118/60 -???-???-???-???-???-???-???- ???-???-???-???-???- -???-???-???-???-???-???-???- ???-???-???-???-???- RN visit for BP check 10/12/20 -???-???-???-???-???-???-???- ???-???-???-???-???- 13w 6d 158 lb 6 oz (+3 lb 6 oz) 136/78 -???-???-???-???-???-???-???- ???-???-???-???-???- 160 -???-???-???-???-???-???-???- ???-???-???-???-???- GP - no cram ping or bleeding. PRR. Anatomy reviewed. 11/09/20 -???-???-???-???-???-???-???- ???-???-???-???-???- 17w 6d 168 lb (+13 lb) 138/68 Negative -???-???-???-???-???-???-???- ???-???-???-???-???- Negative 145 -???-???-???-???-???-???-???- ???-???-???-???-???- Sm- no vb lo f cramping discussed chtn management 12/07/20 -???-???-???-???-???-???-???- ???-???-???-???-???- 21w 6d 179 lb (+24 lb) 120/60 -???-???-???-???-???-???-???- ???-???-???-???-???- 140 -???-???-???-???-???-???-???- ???-???-???-???-???- SM- no vb cr amping 12/17/20 -???-???-???-???-???-???-???- ???-???-???-???-???- 23w 2d 180 lb (+25 lb) 130/62 Trace -???-???-???-???-???-???-???- ???-???-???-???-???- Negative 146 -???-???-???-???-???-???-???- ???-???-???-???-???- -work in f or DFM. FHT easily noted with doppler. FM also heard. NO VB, LOF. 01/11/21 -???-???-???-???-???-???-???- ???-???-???-???-???- 26w 6d 189 lb 2 oz (+34 lb 2 oz) 118/70 Negative -???-???-???-???-???-???-???- ???-???-???-???-???- Negative 150 27 -???-???-???-???-???-???-???- ???-???-???-???-???- - no vb lo f good fm no regular ctx 02/01/21 -???-???-???-???-???-???-???- ???-???-???-???-???- 29w 6d 193 lb (+38 lb) Negative -???-???-???-???-???-???-???- ???-???-???-???-???- Negative 150 30 -???-???-???-???-???-???-???- ???-???-???-???-???- SM- no vb lo f good fm no regular ctx 02/15/21 -???-???-???-???-???-???-???- ???-???-???-???-???- 31w 6d 193 lb (+38 lb) -???-???-???-???-???-???-???- ???-???-???-???-???- 130 -???-???-???-???-???-???-???- ???-???-???-???-???- GP - no LOF, VB, dFM, ctx. Discussed control. LARC form signed. 02/22/21 -???-???-???-???-???-???-???- ???-???-???-???-???- 32w 6d 193 lb 8 oz (+38 lb 8 oz) 138/80 Negative -???-???-???-???-???-???-???- ???-???-???-???-???- Negative 140 -???-???-???-???-???-???-???- ???-???-???-???-???- GP - NST onl y. Reactive. 03/01/21 -???-???-???-???-???-???-???- ???-???-???-???-???- 33w 6d 197 lb (+42 lb) 136/80 Negative -???-???-???-???-???-???-???- ???-???-???-???-???- Negative 130 -???-???-???-???-???-???-???- ???-???-???-???-???- SM- nst and no vb lof good f no regular ctx discussed IOL 38-39 03/08/21 -???-???-???-???-???-???-???- ???-???-???-???-???- 34w 6d 196 lb (+41 lb) 140/80 140/80 Negative -???-???-???-???-???-???-???- ???-???-???-???-???- Negative 130 -???-???-???-???-???-???-???- ???-???-???-???-???- GP - nst onl y. BP elevated. Sent for labs 03/15/21 -???-???-???-???-???-???-???- ???-???-???-???-???- 35w 6d 198 lb (+43 lb) -???-???-???-???-???-???-???- ???-???-???-???-???- 130 -???-???-???-???-???-???-???- ???-???-???-???-???- SM- no vb lo f good fm no regular ctx gbs next week 03/22/21 -???-???-???-???-???-???-???- ???-???-???-???-???- 36w 6d 201 lb 4 oz (+46 lb 4 oz) 138/82 Negative -???-???-???-???-???-???-???- ???-???-???-???-???- Negative 120 36 Cephalic 0 -???-???-???-???-???-???-???- ???-???-???-???-???- GP - no LOF, VB, DFM, ctx. GBS today. ACOG First Trimester First Trimester: Desire for , Alcohol, Tobacco Cessation, Illicit/Recreational Drug/Substance Use, Intimate Partner Violence, Barriers to care, Unstable Housing, Communication Barriers, Environmental/Work Hazards, Anticipated Course of Care, Toxoplasmosis Precations, Use of Any medications, Sexual activity, Exercise, Dental Care, Sauna/Hot tub use, Seat Belt use, Childbirth classes/Hospital facilities, , Travel, Indications for Ultrasound and Screening for Aneuploidy Diagnostics Diagnostics Diagnostics: Glucose 1 Hr 50 gm 100 mg/dL (70-140) Hgb 11.9 g/dL (12.0-15.0) L Hct 37.4 % (37-47) Details: HIV: Urine Culture: Sequential Screen: NIPT Screen: ROS GI Denies dyspepsia, Denies nausea and Denies vomiting Denies abnormal vaginal bleeding, Denies dysuria, Denies pelvic pain, Denies vaginal discharge, Denies vaginal odor and Denies vaginal pruritus Exam Const General: cooperative, healthy appearing, comfortable, no acute distress, well developed and well groomed Nutritional Appearance: average body habitus and well nourished Orientation: alert, awake and oriented x3 [facility] Head: normal to inspection, normocephalic and atraumatic Eyes Pupils: PERRL and accommodation normal Resp Effort Inspection: normal respiratory effort, able to speak in complete sentences and symmetric chest movement Cardio Rate: regular rate GI Palpation: soft, no guarding, no masses and nontender Skin General: no rashes or lesions noted, elasticity normal and turgor normal Neuro General: patient alert, patient awake and patient oriented x3 Cranial Nerves: CN's II-XI intact bilaterally, sense of smell intact, PERRL, accommodation normal and EOM intact bilaterally Speech: speech normal Gait: normal gait Psych Appearance: grossly normal and well kempt Mental Status: mental status grossly normal Mood: congruent mood Affect: normal affect Speech and Movement: speech and movement normal Attitude: cooperative Thought Process: normal Thought Content: normal Judgment: judgment good Results POC Urinalysis 2 Dip (Clinic) Office Urine Glucose Negative Last Edit by Jill Ellison on 03/22/21 08:35 Office Urine Protein Negative Last Edit by Jill Ellison on 03/22/21 08:35 Coding Level of Care Code OB Routine Diagnoses Gestational thrombocytopenia O99.119; D69.6 COVID-19 U07.1 Chronic hypertension affecting O10.919 Supervision of high risk , antepartum O09.90 Z3A.36 Weeks of gestation: 36 weeks Assessment and Plan Assessment and Plan (1) Gestational thrombocytopenia: Status: Acute (2) COVID-19: Status: Acute Comment: Had all symptoms at 7 weeks. Antibody testing ordered at [facility]. (3) Chronic hypertension affecting : Status: Chronic Comment: On labetalol in last preg. No meds now. Baseline PreE labs nl. declines ASA. Discussed testing and likely delivery at 38-39w. Orders: Orders: OB NST Today (4) Supervision of high risk , antepartum: Status: Acute Comment: PRR SUSANA 04/13/21 mumtaz Crews PC: Frank Spouse: Esdras Orders: Orders: Culture, Group B Streptococcus Today (5) : Status: Acute Qualifiers: Weeks of gestation: 36 weeks Qualified Code(s): Z3A.36 - 36 weeks gestation of Comment: genetics- low risk, declines carrier, and ntd screening. anatomy normal Plan Details Other Orders: Orders: POC Urinalysis 2 Dip (Clinic) Today 03/22/21 09 <Electronically signed by Myla Sousa MD> Date Myla Sousa MD Cosigner Signature: Date (if applicable) CC: Arcelia Huston RADIATION MONITOR Work Phone: Start: 03-22-2021 End: 03-22-2021 OB Limited With Biometrics Comments: See Note; NOTES: [facility] Imaging Services [address] [place] [address] OB Limited With Biometrics MR#: [id number] Acct: [id number] Name: REGGIE MILLER Rep #: [id number] : 1995 F 26 From: Jaciel garcia MD PCP: Dr. Reina Aguirre, Status: [facility] Study: OB Limited With Biometrics Date of Exam: 03/22 Exam# [id number] Ordering Dr: Melida Rutledge STUDY: SECOND AND THIRD TRIMESTER OBSTETRICAL ULTRASOUND - LIMITED REASON FOR EXAM: Female, 26 years old growth at 36 weeks LMP: 07/07/2020. PRIOR ULTRASOUND: Comparison is made with prior study dated 03/15/2021. TECHNIQUE: Transabdominal TECHNICAL QUALITY: Adequate. FINDINGS: There is a single intrauterine fetus. The fetus is in a cephalic presentation. There is demonstrated cardiac activity with a heart rate of 137 bpm. There is a normal amniotic fluid volume. The largest amniotic fluid pocket measures 5.4 cm. The amniotic fluid index (FAISAL) is 13.07 cm. The placenta is anterior and fundal in location and is not low lying. There are Grade 3 placental changes. The cervical length was not measured due to the head position. BIOMETRY: BPD: 8.9 cm: 36 weeks, 0 days HC: 33.6 cm: 38 weeks, 3 days AC: 34.44 cm: 38 weeks, 2 days FL: 7.53 sign: 38 weeks, 3 days Age by LMP: 36 weeks, 6 days. SUSANA by LMP: 04/13/2021. age by prior US: 36 weeks, 6 days. SUSANA by prior US: 04/13/2021. age by current US: 37 weeks, 5 days. SUSANA by current US: 04/07/2021. Estimated weight: 3391 grams, +/- 509 grams, 84 percentile. US/OB Limited With Biometrics IMPRESSION: Single live intrauterine gestation with a mean gestational age of 36 weeks and 6 days. The measurements obtained today fall within the normal expected range. Electronically Signed: Jaciel Galarza MD at 8:52 EDT , Service support , CC: Dr. Reina Aguirre DO; Dr. Melida Rutledge MD Commercial Loan Manager: Signed Arcelia Huston ANGEL Work Phone: Start: 03-15-2021 End: 03-15-2021 Field Worker Office Visit Report Comments: See Note; NOTES: [facility] [address] [place] [address]. [address] [place] [address] OFFICE VISIT Date of Service: 03/15/21 MR#: [id number] Acct: [id number] Name: REGGIE MILLER Rep #: [id number] : 1995 Provider: Dr. Melida solares MD Age/Sex: 26/F Location: [facility] Status: Signed Intake Vital Signs 03/15/21 08:28 Height 5 ft 7 in Weight: 198 lb BMI 31.0 Intake Visit Reasons: 36 WK OB / NST Visualizer Required: No Is patient in pain?: No Allergies codeine Allergy (Intermediate, Verified 03/15/21 08:29) Nausea Sulfa (Sulfonamide Antibiotics) Allergy (Mild, Verified 03/15/21 08:29) Nausea Medications multivitamin no.47-iron fum 27 mg-folate no.1 1 mg-dha 300 mg capsule cap PO 09/04/20 [History Confirmed 08/20/21] Last Menstral Period: 07/07/20 Zika: Zika virus screening: Negative : No PFSH PFSH Medical History Breech presentation Chronic hypertension Gestational thrombocytopenia Kidney infection Liver hemangioma Surgical History History of removal of cyst ( 2013) Family History Mother Hyperlipidemia Father Hyperlipidemia Social History Smoking Status: Never smoker alcohol intake: never substance use type: does not use caffeine: No what type of physical activity do you participate in: none seatbelt use: always do you feel safe at home: Yes 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 Date Name GA/Weeks Outcome Route Bth Weight Infant Gen Labor Lgth Anesthesia Del [facility] Provider FOB 02/23/19 Calem 38 live - full term 8lbs 2oz Male 24 hours epidural [facility] Marc[facility]ony Delivery Date: 02/23/19 IoL chronic hypertension; 1st degree laceration Yanique Blackburn HPI 36 WK OB / NST Details: REGGIE MILLER is a 26 year old who presents for routine OB visit. OB Visit SUSANA Calculator Estimated Delivery Date Method Current WG Current Estimate 04/13/21 LMP (Certain) 35w 6d Other Estimates 04/15/21 Ultrasound #1 35w 4d Expected Delivery Route/Plan plan IOL at 38-39 Labor Preferences- labor support person: Esdras labor intervention preferences: minimal pain management options preferred: planning epidural cut cord/dad catch: [] : yes PP control planned: declines discussed possible routes of delivery and associated risks: [] special requests: [] Specific Issue/Plans covid status: postitive in flu vaccine: na tdap vaccine: declined rhogam: na LARC form signed: 02/15 movement and labor precautions reviewed. Problem list reviewed and updated with the most current plan of care details and appropriate orders placed. Relevant counseling for the gestational age provided. Continue routine care and follow up unless otherwise noted in visit notes/problem list details Initial Weight: 155 lb Date -???-???-???-???-???-???-???- ???-???-???-???-???- EGA Weight BP Urine Prot -???-???-???-???-???-???-???- ???-???-???-???-???- Glucose FHR FuHt Pres Dilation -???-???-???-???-???-???-???- ???-???-???-???-???- Effaced St Visit Note 09/14/20 -???-???-???-???-???-???-???- ???-???-???-???-???- 9w 6d 154 lb (-16 oz) 140/82 -???-???-???-???-???-???-???- ???-???-???-???-???- 168 -???-???-???-???-???-???-???- ???-???-???-???-???- 09/28/20 -???-???-???-???-???-???-???- ???-???-???-???-???- 11w 6d 118/60 -???-???-???-???-???-???-???- ???-???-???-???-???- -???-???-???-???-???-???-???- ???-???-???-???-???- RN visit for BP check 10/12/20 -???-???-???-???-???-???-???- ???-???-???-???-???- 13w 6d 158 lb 6 oz (+3 lb 6 oz) 136/78 -???-???-???-???-???-???-???- ???-???-???-???-???- 160 -???-???-???-???-???-???-???- ???-???-???-???-???- GP - no cram ping or bleeding. PRR. Anatomy reviewed. 11/09/20 -???-???-???-???-???-???-???- ???-???-???-???-???- 17w 6d 168 lb (+13 lb) 138/68 Negative -???-???-???-???-???-???-???- ???-???-???-???-???- Negative 145 -???-???-???-???-???-???-???- ???-???-???-???-???- Sm- no vb lo f cramping discussed chtn management 12/07/20 -???-???-???-???-???-???-???- ???-???-???-???-???- 21w 6d 179 lb (+24 lb) 120/60 -???-???-???-???-???-???-???- ???-???-???-???-???- 140 -???-???-???-???-???-???-???- ???-???-???-???-???- SM- no vb cr amping 12/17/20 -???-???-???-???-???-???-???- ???-???-???-???-???- 23w 2d 180 lb (+25 lb) 130/62 Trace -???-???-???-???-???-???-???- ???-???-???-???-???- Negative 146 -???-???-???-???-???-???-???- ???-???-???-???-???- -work in f or DFM. FHT easily noted with doppler. FM also heard. NO VB, LOF. 01/11/21 -???-???-???-???-???-???-???- ???-???-???-???-???- 26w 6d 189 lb 2 oz (+34 lb 2 oz) 118/70 Negative -???-???-???-???-???-???-???- ???-???-???-???-???- Negative 150 27 -???-???-???-???-???-???-???- ???-???-???-???-???- SM- no vb lo f good fm no regular ctx 02/01/21 -???-???-???-???-???-???-???- ???-???-???-???-???- 29w 6d 193 lb (+38 lb) Negative -???-???-???-???-???-???-???- ???-???-???-???-???- Negative 150 30 -???-???-???-???-???-???-???- ???-???-???-???-???- SM- no vb lo f good fm no regular ctx 02/15/21 -???-???-???-???-???-???-???- ???-???-???-???-???- 31w 6d 193 lb (+38 lb) -???-???-???-???-???-???-???- ???-???-???-???-???- 130 -???-???-???-???-???-???-???- ???-???-???-???-???- GP - no LOF, VB, dFM, ctx. Discussed control. LARC form signed. 02/22/21 -???-???-???-???-???-???-???- ???-???-???-???-???- 32w 6d 193 lb 8 oz (+38 lb 8 oz) 138/80 Negative -???-???-???-???-???-???-???- ???-???-???-???-???- Negative 140 -???-???-???-???-???-???-???- ???-???-???-???-???- GP - NST onl y. Reactive. 03/01/21 -???-???-???-???-???-???-???- ???-???-???-???-???- 33w 6d 197 lb (+42 lb) 136/80 Negative -???-???-???-???-???-???-???- ???-???-???-???-???- Negative 130 -???-???-???-???-???-???-???- ???-???-???-???-???- SM- nst and no vb lof good f no regular ctx discussed IOL 38-39 03/08/21 -???-???-???-???-???-???-???- ???-???-???-???-???- 34w 6d 196 lb (+41 lb) 140/80 140/80 Negative -???-???-???-???-???-???-???- ???-???-???-???-???- Negative 130 -???-???-???-???-???-???-???- ???-???-???-???-???- GP - nst onl y. BP elevated. Sent for labs 03/15/21 -???-???-???-???-???-???-???- ???-???-???-???-???- 35w 6d 198 lb (+43 lb) -???-???-???-???-???-???-???- ???-???-???-???-???- 130 -???-???-???-???-???-???-???- ???-???-???-???-???- SM- no vb lo f good fm no regular ctx gbs next week ACOG First Trimester First Trimester: Desire for , Alcohol, Tobacco Cessation, Illicit/Recreational Drug/Substance Use, Intimate Partner Violence, Barriers to care, Unstable Housing, Communication Barriers, Environmental/Work Hazards, Anticipated Course of Care, Toxoplasmosis Precations, Use of Any medications, Sexual activity, Exercise, Dental Care, Sauna/Hot tub use, Seat Belt use, Childbirth classes/Hospital facilities, , Travel, Indications for Ultrasound and Screening for Aneuploidy Diagnostics Diagnostics Diagnostics: Glucose 1 Hr 50 gm 100 mg/dL (70-140) Hgb 11.9 g/dL (12.0-15.0) L Hct 37.4 % (37-47) Details: HIV: Urine Culture: Sequential Screen: NIPT Screen: Office Procedures Non-stress Test Non-Stress Test Indications for Monitoring: Yes hypertension Heart Rate Baseline: 130 Heart Rate Variability: moderate Movement: Present Heart Rate Accelerations: Present Decelerations: Absent Contractions: Absent Impression: Yes Reactive Non-Stress Test Category 1 Coding Level of Care Code OB Routine CPT Codes Non-Stress Test (55692) Assessment and Plan Plan Details Other Orders: Orders: OB NST Today O10.919 POC Urinalysis 2 Dip (Clinic) Today O10.919 03/15/21 1045 <Electronically signed by Melida Rutledge MD> Date Melida Rutledge MD Cosigner Signature: Date (if applicable) CC: Arcelia Huston CNP Work Phone: Start: 03-15-2021 End: 03-15-2021 OB Limited (No Biometrics) Comments: See Note; NOTES: [facility] Imaging Services [address] [place], [place] [address] [address] OB Limited (No Biometrics) MR#: [id number] Acct: [id number] Name: REGGIE MILLER Rep #: [id number] : 1995 F 26 From: Jaciel garcia MD PCP: Dr. Reina Aguirre DO Status: REG CLI Study: OB Limited (No Biometrics) Date of Exam: 03/15 Exam# [id number] Ordering Dr: Melida Rutledge STUDY: SECOND AND THIRD TRIMESTER OBSTETRICAL ULTRASOUND - LIMITED REASON FOR EXAM: Female, 26 years old FAISAL only ( week of Mar 10) LMP: 07/07/2020. PRIOR ULTRASOUND: Comparison is made with prior sonogram dated 03/08/2021. TECHNIQUE: Transabdominal TECHNICAL QUALITY: Adequate. FINDINGS: There is a single intrauterine fetus. The fetus is in a cephalic presentation. There is demonstrated cardiac activity with a heart rate of 133 bpm. There is a normal amniotic fluid volume. The largest amniotic fluid pocket measures 4.6 cm. The amniotic fluid index (FAISAL) is 11.6 cm. The placenta is anterior in location and is not low lying. There are Grade 0 placental changes. US/OB Limited (No Biometrics) IMPRESSION: Normal amniotic fluid. Electronically Signed: Jaciel Galarza MD at 11:09 EDT , Service support , CC: Dr. Reina Aguirre DO; Dr. Melida Rutledge MD Commercial Loan Manager: Signed Arcelia Huston ANGEL Work Phone: Start: 03-08-2021 End: 03-08-2021 Field Worker Office Visit Report Comments: See Note; NOTES: [facility] [address] [place], [place] [address]kat[address]. [address] [place] [address] OFFICE VISIT Date of Service: 03/08/21 MR#: [id number] Acct: [id number] Name: REGGIE MILLER Rep #: [id number] : 1995 Provider: Dr. Myla briceno MD Age/Sex: 26/F Location: [facility] Status: Signed Intake Vital Signs 03/08/21 08:53 03/08/21 08:54 Height 5 ft 7 in Weight: 196 lb BMI 30.7 26.3 BP 140/80 H Intake Visit Reasons: 35WK NST ONLY Allergies codeine Allergy (Intermediate, Verified 03/08/21 08:53) Nausea Sulfa (Sulfonamide Antibiotics) Allergy (Mild, Verified 03/08/21 08:53) Nausea Medications multivitamin no.47-iron fum 27 mg-folate no.1 1 mg-dha 300 mg capsule cap PO 09/04/20 [History Confirmed 03/08/21] Last Menstral Period: 07/07/20 PFSH PFSH Medical History Breech presentation Chronic hypertension Kidney infection Liver hemangioma Surgical History History of removal of cyst ( 2013) Family History Mother Hyperlipidemia Father Hyperlipidemia Social History Smoking Status: Never smoker alcohol intake: never substance use type: does not use caffeine: No what type of physical activity do you participate in: none seatbelt use: always do you feel safe at home: Yes 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 Date Name GA/Weeks Outcome Route Bth Weight Infant Gen Labor Lgth Anesthesia Del Locatn Provider FOB 02/23/19 Calem 38 live - full term 8lbs 2oz Male 24 hours epidural [facility] Delivery Date: 02/23/19 IoL chronic hypertension; 1st degree laceration Yanique Blackburn HPI 35WK NST ONLY Details: REGGIE MILLER is a 26 year old who presents for routine OB visit. OB Visit SUSANA Calculator Estimated Delivery Date Method Current WG Current Estimate 04/13/21 LMP (Certain) 34w 6d Other Estimates 04/15/21 Ultrasound #1 34w 4d Comments: HIV: Urine Culture: Sequential Screen: NIPT Screen: Expected Delivery Route/Plan plan IOL at 38-39 Labor Preferences- labor support person: Esdras labor intervention preferences: minimal pain management options preferred: planning epidural cut cord/dad catch: [] : yes PP control planned: declines discussed possible routes of delivery and associated risks: [] special requests: [] Specific Issue/Plans covid status: postitive in flu vaccine: na tdap vaccine: declined rhogam: na LARC form signed: 02/15 movement and labor precautions reviewed. Problem list reviewed and updated with the most current plan of care details and appropriate orders placed. Relevant counseling for the gestational age provided. Continue routine care and follow up unless otherwise noted in visit notes/problem list details Initial Weight: 155 lb Date -???-???-???-???-???-???-???- ???-???-???-???-???- EGA Weight BP Urine Prot -???-???-???-???-???-???-???- ???-???-???-???-???- Glucose FHR FuHt Pres Dilation -???-???-???-???-???-???-???- ???-???-???-???-???- Effaced St Visit Note 09/14/20 -???-???-???-???-???-???-???- ???-???-???-???-???- 9w 6d 154 lb (-16 oz) 140/82 -???-???-???-???-???-???-???- ???-???-???-???-???- 168 -???-???-???-???-???-???-???- ???-???-???-???-???- 09/28/20 -???-???-???-???-???-???-???- ???-???-???-???-???- 11w 6d 118/60 -???-???-???-???-???-???-???- ???-???-???-???-???- -???-???-???-???-???-???-???- ???-???-???-???-???- RN visit for BP check 10/12/20 -???-???-???-???-???-???-???- ???-???-???-???-???- 13w 6d 158 lb 6 oz (+3 lb 6 oz) 136/78 -???-???-???-???-???-???-???- ???-???-???-???-???- 160 -???-???-???-???-???-???-???- ???-???-???-???-???- GP - no cram ping or bleeding. PRR. Anatomy reviewed. 11/09/20 -???-???-???-???-???-???-???- ???-???-???-???-???- 17w 6d 168 lb (+13 lb) 138/68 Negative -???-???-???-???-???-???-???- ???-???-???-???-???- Negative 145 -???-???-???-???-???-???-???- ???-???-???-???-???- Sm- no vb lo f cramping discussed chtn management 12/07/20 -???-???-???-???-???-???-???- ???-???-???-???-???- 21w 6d 179 lb (+24 lb) 120/60 -???-???-???-???-???-???-???- ???-???-???-???-???- 140 -???-???-???-???-???-???-???- ???-???-???-???-???- - no vb cr amping 12/17/20 -???-???-???-???-???-???-???- ???-???-???-???-???- 23w 2d 180 lb (+25 lb) 130/62 Trace -???-???-???-???-???-???-???- ???-???-???-???-???- Negative 146 -???-???-???-???-???-???-???- ???-???-???-???-???- -work in f or [facility]. FHT easily noted with doppler. FM also heard. NO VB, LOF. 01/11/21 -???-???-???-???-???-???-???- ???-???-???-???-???- 26w 6d 189 lb 2 oz (+34 lb 2 oz) 118/70 Negative -???-???-???-???-???-???-???- ???-???-???-???-???- Negative 150 27 -???-???-???-???-???-???-???- ???-???-???-???-???- SM- no vb lo f good fm no regular ctx 02/01/21 -???-???-???-???-???-???-???- ???-???-???-???-???- 29w 6d 193 lb (+38 lb) Negative -???-???-???-???-???-???-???- ???-???-???-???-???- Negative 150 30 -???-???-???-???-???-???-???- ???-???-???-???-???- SM- no vb lo f good fm no regular ctx 02/15/21 -???-???-???-???-???-???-???- ???-???-???-???-???- 31w 6d 193 lb (+38 lb) -???-???-???-???-???-???-???- ???-???-???-???-???- 130 -???-???-???-???-???-???-???- ???-???-???-???-???- GP - no LOF, VB, dFM, ctx. Discussed control. LARC form signed. 02/22/21 -???-???-???-???-???-???-???- ???-???-???-???-???- 32w 6d 193 lb 8 oz (+38 lb 8 oz) 138/80 Negative -???-???-???-???-???-???-???- ???-???-???-???-???- Negative 140 -???-???-???-???-???-???-???- ???-???-???-???-???- GP - NST onl y. Reactive. 03/01/21 -???-???-???-???-???-???-???- ???-???-???-???-???- 33w 6d 197 lb (+42 lb) 136/80 Negative -???-???-???-???-???-???-???- ???-???-???-???-???- Negative 130 -???-???-???-???-???-???-???- ???-???-???-???-???- SM- nst and no vb lof good f no regular ctx discussed IOL 38-39 03/08/21 -???-???-???-???-???-???-???- ???-???-???-???-???- 34w 6d 196 lb (+41 lb) 140/80 Negative -???-???-???-???-???-???-???- ???-???-???-???-???- Negative 130 -???-???-???-???-???-???-???- ???-???-???-???-???- GP - nst onl y. BP elevated. Sent for labs ACOG First Trimester First Trimester: Desire for , Alcohol, Tobacco Cessation, Illicit/Recreational Drug/Substance Use, Intimate Partner Violence, Barriers to care, Unstable Housing, Communication Barriers, Environmental/Work Hazards, Anticipated Course of Care, Toxoplasmosis Precations, Use of Any medications, Sexual activity, Exercise, Dental Care, Sauna/Hot tub use, Seat Belt use, Childbirth classes/Hospital facilities, , Travel, Indications for Ultrasound and Screening for Aneuploidy Diagnostics Diagnostics Diagnostics: Glucose 1 Hr 50 gm 100 mg/dL (70-140) Hgb 11.9 g/dL (12.0-15.0) L Hct 37.4 % (37-47) Details: HIV: Urine Culture: Sequential Screen: NIPT Screen: HIV: Urine Culture: Sequential Screen: NIPT Screen: Office Procedures Non-stress Test Non-Stress Test Indications for Monitoring: Yes hypertension Heart Rate Baseline: 130 Heart Rate Variability: moderate Movement: Present Heart Rate Accelerations: Present Decelerations: Absent Contractions: Absent Impression: Yes Reactive Non-Stress Test Results POC Urinalysis 2 Dip (Clinic) Office Urine Glucose Negative Last Edit by Yanique Blackburn on 03/08/21 08:55 Office Urine Protein Negative Last Edit by Yanique Blackburn on 03/08/21 08:55 Coding Level of Care Code OB Routine Exam Problem Focused CPT Codes Non-Stress Test (14206) Assessment and Plan Plan Details Other Orders: Orders: OB NST Today O10.919 POC Urinalysis 2 Dip (Clinic) Today O10.919 Comprehensive Metabolic Profil Today O10.919 CBC W/Diff, Automated Today O10.919 Protein+Creatinine Ratio,Urine Today O10.919 03/08/21 1004 <Electronically signed by Myla Sousa MD> Date Myla Sousa MD Cosigner Signature: Date (if applicable) CC: Arcelia Huston RADIATION MONITOR Work Phone: Start: 03-08-2021 End: 03-08-2021 OB Limited (No Biometrics) Comments: See Note; NOTES: [facility] Imaging Services [address] [place] [address] OB Limited (No Biometrics) MR#: [id number] Acct: [id number] Name: REGGIE MILLER Rep #: [id number] : 1995 F 26 From: Jaciel garcia MD PCP: Dr. Reina Aguirre, DO Status: [facility] CL Study: OB Limited (No Biometrics) Date of Exam: 03/08 Exam# [id number] Ordering Dr: Melida Rutledge STUDY: SECOND AND THIRD TRIMESTER OBSTETRICAL ULTRASOUND - LIMITED REASON FOR EXAM: Female, 26 years old FAISAL LMP: 07/07/2020. PRIOR ULTRASOUND: Comparison is made with prior examination dated 03/01/2021. TECHNIQUE: Transabdominal TECHNICAL QUALITY: Adequate. FINDINGS: There is a single intrauterine fetus. The fetus is in a cephalic presentation. There is demonstrated cardiac activity with a heart rate of 153 bpm. There is a normal amniotic fluid volume. The largest amniotic fluid pocket measures 7.1 cm. The amniotic fluid index (FAISAL) is 15.6 cm. The placenta is anterior in location and is not low lying. There are Grade 1 placental changes. The cervix measures 4.9 cm in length. US/OB Limited (No Biometrics) IMPRESSION: Normal amniotic fluid. Electronically Signed: Jaciel Galarza MD at 11:58 EDT , Service support , CC: Dr. Reina Aguirre DO; Dr. Melida Rutledge MD Commercial Loan Manager: Signed Arcelia Huston CNP Work Phone: Start: 03-01-2021 End: 03-01-2021 Field Worker Office Visit Report Comments: See Note; NOTES: [facility] [address] [place] [address] OFFICE VISIT Date of Service: 03/01/21 MR#: [id number] Acct: [id number] Name: REGGIE MILLER Rep #: [id number] : 1995 Provider: Dr. Melida solares MD Age/Sex: 26/F Location: [facility] [place] Status: Signed Intake Vital Signs 03/01/21 08:39 03/01/21 08:41 Height 5 ft 7 in Weight: 197 lb BMI 30.8 26.3 BP 136/80 H Intake Visit Reasons: 34 WK OB/NST Chief Complaint: est ob NST Visualizer Required: No Is patient in pain?: No Allergies codeine Allergy (Intermediate, Verified 03/01/21 08:43) Nausea Sulfa (Sulfonamide Antibiotics) Allergy (Mild, Verified 03/01/21 08:43) Nausea Medications multivitamin no.47-iron fum 27 mg-folate no.1 1 mg-dha 300 mg capsule cap PO 09/04/20 [History Confirmed 03/01/21] Last Menstral Period: 07/07/20 Zika: Zika virus screening: Negative : No PFSH PFSH Medical History (Updated 03/01/21 @ 09:[address] 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 Date Name GA/Weeks Outcome Route Bth Weight Gen Labor Lgth Anesthesia Del Locatn Provider FOB 02/23/19 Calem 38 live - full term 8lbs 2oz Male 24 hours epidural [facility] Delivery Date: 02/23/19 IoL chronic hypertension; 1st degree laceration Yanique Blackburn HPI 34 WK OB/NST Details: REGGIE MILLER is a 26 year old who presents for routine OB visit. OB Visit SUSANA Calculator Estimated Delivery Date Method Current WG Current Estimate 04/13/21 LMP (Certain) 33w 6d Other Estimates 04/15/21 Ultrasound #1 33w 4d Expected Delivery Route/Plan plan IOL at 38-39 Labor Preferences- labor support person: Esdras labor intervention preferences: minimal pain management options preferred: planning epidural cut cord/dad catch: [] : yes PP control planned: declines discussed possible routes of delivery and associated risks: [] special requests: [] Specific Issue/Plans covid status: postitive in flu vaccine: na tdap vaccine: declined rhogam: na LARC form signed: 02/15 movement and labor precautions reviewed. Problem list reviewed and updated with the most current plan of care details and appropriate orders placed. Relevant counseling for the gestational age provided. Continue routine care and follow up unless otherwise noted in visit notes/problem list details Initial Weight: 155 lb Date -???-???-???-???-???-???-???- ???-???-???-???-???- EGA Weight BP Urine Prot -???-???-???-???-???-???-???- ???-???-???-???-???- Glucose FHR FuHt Pres Dilation -???-???-???-???-???-???-???- ???-???-???-???-???- Effaced St Visit Note 09/14/20 -???-???-???-???-???-???-???- ???-???-???-???-???- 9w 6d 154 lb (-16 oz) 140/82 -???-???-???-???-???-???-???- ???-???-???-???-???- 168 -???-???-???-???-???-???-???- ???-???-???-???-???- 09/28/20 -???-???-???-???-???-???-???- ???-???-???-???-???- 11w 6d 118/60 -???-???-???-???-???-???-???- ???-???-???-???-???- -???-???-???-???-???-???-???- ???-???-???-???-???- RN visit for BP check 10/12/20 -???-???-???-???-???-???-???- ???-???-???-???-???- 13w 6d 158 lb 6 oz (+3 lb 6 oz) 136/78 -???-???-???-???-???-???-???- ???-???-???-???-???- 160 -???-???-???-???-???-???-???- ???-???-???-???-???- GP - no cram ping or bleeding. PRR. Anatomy reviewed. 11/09/20 -???-???-???-???-???-???-???- ???-???-???-???-???- 17w 6d 168 lb (+13 lb) 138/68 Negative -???-???-???-???-???-???-???- ???-???-???-???-???- Negative 145 -???-???-???-???-???-???-???- ???-???-???-???-???- Sm- no vb lo f cramping discussed chtn management 12/07/20 -???-???-???-???-???-???-???- ???-???-???-???-???- 21w 6d 179 lb (+24 lb) 120/60 -???-???-???-???-???-???-???- ???-???-???-???-???- 140 -???-???-???-???-???-???-???- ???-???-???-???-???- SM- no vb cr amping 12/17/20 -???-???-???-???-???-???-???- ???-???-???-???-???- 23w 2d 180 lb (+25 lb) 130/62 Trace -???-???-???-???-???-???-???- ???-???-???-???-???- Negative 146 -???-???-???-???-???-???-???- ???-???-???-???-???- -work in f or DFM. FHT easily noted with doppler. FM also heard. NO VB, LOF. 01/11/21 -???-???-???-???-???-???-???- ???-???-???-???-???- 26w 6d 189 lb 2 oz (+34 lb 2 oz) 118/70 Negative -???-???-???-???-???-???-???- ???-???-???-???-???- Negative 150 27 -???-???-???-???-???-???-???- ???-???-???-???-???- SM- no vb lo f good fm no regular ctx 02/01/21 -???-???-???-???-???-???-???- ???-???-???-???-???- 29w 6d 193 lb (+38 lb) Negative -???-???-???-???-???-???-???- ???-???-???-???-???- Negative 150 30 -???-???-???-???-???-???-???- ???-???-???-???-???- SM- no vb lo f good fm no regular ctx 02/15/21 -???-???-???-???-???-???-???- ???-???-???-???-???- 31w 6d 193 lb (+38 lb) -???-???-???-???-???-???-???- ???-???-???-???-???- 130 -???-???-???-???-???-???-???- ???-???-???-???-???- GP - no LOF, VB, dFM, ctx. Discussed control. LARC form signed. 02/22/21 -???-???-???-???-???-???-???- ???-???-???-???-???- 32w 6d 193 lb 8 oz (+38 lb 8 oz) 138/80 Negative -???-???-???-???-???-???-???- ???-???-???-???-???- Negative 140 -???-???-???-???-???-???-???- ???-???-???-???-???- GP - NST onl y. Reactive. 03/01/21 -???-???-???-???-???-???-???- ???-???-???-???-???- 33w 6d 197 lb (+42 lb) 136/80 Negative -???-???-???-???-???-???-???- ???-???-???-???-???- Negative 130 -???-???-???-???-???-???-???- ???-???-???-???-???- SM- nst and no vb lof good f no regular ctx discussed IOL 38-39 ACOG First Trimester First Trimester: Desire for , Alcohol, Tobacco Cessation, Illicit/Recreational Drug/Substance Use, Intimate Partner Violence, Barriers to care, Unstable Housing, Communication Barriers, Environmental/Work Hazards, Anticipated Course of Care, Toxoplasmosis Precations, Use of Any medications, Sexual activity, Exercise, Dental Care, Sauna/Hot tub use, Seat Belt use, Childbirth classes/Hospital facilities, , Travel, Indications for Ultrasound and Screening for Aneuploidy Diagnostics Diagnostics Diagnostics: Blood Type B POSITIVE Antibody Screen NEGATIVE Glucose 1 Hr 50 gm 100 mg/dL (70-140) HIV 1 2 Antibody Non-Reactive (Nonreactive) Rubella IgG Antibody Reactive (Nonreactive) Hgb 11.0 g/dL (12.0-15.0) L Hct 33.9 % (37-47) L Details: HIV: Urine Culture: Sequential Screen: NIPT Screen: Results POC Urinalysis 2 Dip (Clinic) Office Urine Glucose Negative Last Edit by Barb Arriaza on 03/01/21 08:46 Office Urine Protein Negative Last Edit by Barb Arriaza on 03/01/21 08:46 Coding Level of Care Code OB Routine Diagnoses COVID-19 U07.1 Chronic hypertension affecting O10.919 Supervision of high risk , antepartum O09.90 Z3A.33 Weeks of gestation: 33 weeks Assessment and Plan Assessment and Plan (1) COVID-19: Status: Acute Comment: Had all symptoms at 7 weeks. Antibody testing ordered at NOB. (2) Chronic hypertension affecting : Status: Chronic Comment: On labetalol in last preg. No meds now. Baseline PreE labs nl. declines ASA. Discussed testing and likely delivery at 38-39w. Orders: Orders: OB NST Today (3) Supervision of high risk , antepartum: Status: Acute Comment: PRR SUSANA 04/13/21 boy Eleonora PC: Frank Spouse: Esdras (4) : Status: Acute Qualifiers: Weeks of gestation: 33 weeks Qualified Code(s): Z3A.33 - 33 weeks gestation of Comment: genetics- low risk, declines carrier, and ntd screening. anatomy normal Plan Details Other Orders: Orders: POC Urinalysis 2 Dip (Clinic) Today 03/01/21920 <Electronically signed by Melida Rutledge MD> Date Melida Rutledge MD Cosigner Signature: Date (if applicable) CC: Arcelia Huston [employer]IATION MONITOR Work Phone: Start: 03-01-2021 End: 03-03-2021 OB Limited (No Biometrics) Comments: See Note; NOTES: [facility] Imaging Services [address] [facility] [place] [address] OB Limited (No Biometrics) MR#: [id number] Acct: [id number] Name: REGGIE MILLER Rep #: [id number] : 1995 F 26 From: Nghia Moreno DO PCP: Dr. Reina Aguirre DO Status: REG CLI Study: OB Limited (No Biometrics) Date of Exam: 03/01 Exam# [id number] Ordering Dr: Melida Rutledge INDICATION: FAISAL only EXAMINATION: Ultrasound US OB Limited 1 Or More Fetus TECHNIQUE: Transabdominal was fundal and anterior. Pelvic ultrasound was performed. Grayscale, spectral waveform, and color flow Doppler evaluation of the adnexa. COMPARISON: OB ultrasound dated 11/23/2020 FINDINGS: Limited OB ultrasound was obtained. The partially evaluated anatomy demonstrated no gross abnormality. The heart rate was 127 bpm. The visualized placenta is anterior. Circumscribed anechoic areas are noted in the placenta which may represent placental lakes. DOPPLER flow is appreciated in the placenta. The cervix appeared closed and measuring 3.8 cm. The FAISAL was appropriate measuring 16.1 cm. No biometrics were obtained. The ovaries were not scanned during this image. US/OB Limited (No Biometrics) IMPRESSION: 1. Limited OB ultrasound to evaluate for FAISAL. FAISAL was appropriate at 16.1 cm. 2. heart rate was appreciated at 127 bpm. 3. Cervix closed. Electronically Signed: Nghia Moreno MD at 10:37 EDT Tel , Service support , CC: Dr. Reina Aguirre DO; Dr. Melida Rutledge MD Commercial Loan Manager: Signed Arcelia Huston CNP Work Phone: Start: 02-22-2021 End: 02-22-2021 Field Worker Office Visit Report Comments: See Note; NOTES: [facility] [address] [place] [address]. [address] [place], [place] [address] OFFICE VISIT Date of Service: 02/22/21 MR#: [id number] Acct: [id number] Name: REGGIE MILLER Rep #: [id number] : 1995 Provider: Dr. Myla briceno MD Age/Sex: 26/F Location: [facility] [place] Status: Signed Intake Vital Signs 02/22/21 08:42 02/22/21 08:44 Height 5 ft 7 in Weight: 193 lb 8 oz BMI 30.3 26.3 BP 138/80 H Intake Visit Reasons: 33WK NST ONLY Visualizer Required: No Is patient in pain?: No Allergies codeine Allergy (Intermediate, Verified 02/22/21 08:42) Nausea Sulfa (Sulfonamide Antibiotics) Allergy (Mild, Verified 02/22/21 08:42) Nausea Medications multivitamin no.47-iron fum 27 mg-folate no.1 1 mg-dha 300 mg capsule cap PO 09/04/20 [History Confirmed 02/22/21] Last Menstral Period: 07/07/20 Zika: Zika virus screening: Negative : No PFSH PFSH Medical History Chronic hypertension Kidney infection Liver hemangioma Surgical History History of removal of cyst ( 2013) Family History Mother Hyperlipidemia Father Hyperlipidemia Social History Smoking Status: Never smoker alcohol intake: never substance use type: does not use caffeine: No what type of physical activity do you participate in: none seatbelt use: always do you feel safe at home: Yes 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 Date Name GA/Weeks Outcome Route Bth Weight Infant Gen Labor Lgth Anesthesia Del Locatn Provider FOB 02/23/19 Cal[place] 38 live - full term 8lbs 2oz Male 24 hours epidural [facility] Marcanthony Delivery Date: 02/23/19 IoL chronic hypertension; 1st degree laceration Yanique Blackburn HPI 33WK NST ONLY Details: REGGIE MILLER is a 26 year old who presents for routine OB visit. OB Visit SUSANA Calculator Estimated Delivery Date Method Current WG Current Estimate 04/13/21 LMP (Certain) 32w 6d Other Estimates 04/15/21 Ultrasound #1 32w 4d Expected Delivery Route/Plan plan IOL at 38-39 Labor Preferences- labor support person: Esdras labor intervention preferences: minimal pain management options preferred: planning epidural cut cord/dad catch: [] : yes PP control planned: declines discussed possible routes of delivery and associated risks: [] special requests: [] Specific Issue/Plans covid status: postitive in flu vaccine: na tdap vaccine: declined rhogam: na LARC form signed: 02/15 movement and labor precautions reviewed. Problem list reviewed and updated with the most current plan of care details and appropriate orders placed. Relevant counseling for the gestational age provided. Continue routine care and follow up unless otherwise noted in visit notes/problem list details Initial Weight: 155 lb Date -???-???-???-???-???-???-???- ???-???-???-???-???- EGA Weight BP Urine Prot -???-???-???-???-???-???-???- ???-???-???-???-???- Glucose FHR FuHt Pres Dilation -???-???-???-???-???-???-???- ???-???-???-???-???- Effaced St Visit Note 09/14/20 -???-???-???-???-???-???-???- ???-???-???-???-???- 9w 6d 154 lb (-16 oz) 140/82 -???-???-???-???-???-???-???- ???-???-???-???-???- 168 -???-???-???-???-???-???-???- ???-???-???-???-???- 09/28/20 -???-???-???-???-???-???-???- ???-???-???-???-???- 11w 6d 118/60 -???-???-???-???-???-???-???- ???-???-???-???-???- -???-???-???-???-???-???-???- ???-???-???-???-???- RN visit for BP check 10/12/20 -???-???-???-???-???-???-???- ???-???-???-???-???- 13w 6d 158 lb 6 oz (+3 lb 6 oz) 136/78 -???-???-???-???-???-???-???- ???-???-???-???-???- 160 -???-???-???-???-???-???-???- ???-???-???-???-???- GP - no cram ping or bleeding. PRR. Anatomy reviewed. 11/09/20 -???-???-???-???-???-???-???- ???-???-???-???-???- 17w 6d 168 lb (+13 lb) 138/68 Negative -???-???-???-???-???-???-???- ???-???-???-???-???- Negative 145 -???-???-???-???-???-???-???- ???-???-???-???-???- Sm- no vb lo f cramping discussed chtn management 12/07/20 -???-???-???-???-???-???-???- ???-???-???-???-???- 21w 6d 179 lb (+24 lb) 120/60 -???-???-???-???-???-???-???- ???-???-???-???-???- 140 -???-???-???-???-???-???-???- ???-???-???-???-???- SM- no vb cr amping 12/17/20 -???-???-???-???-???-???-???- ???-???-???-???-???- 23w 2d 180 lb (+25 lb) 130/62 Trace -???-???-???-???-???-???-???- ???-???-???-???-???- Negative 146 -???-???-???-???-???-???-???- ???-???-???-???-???- -work in f or DFM. FHT easily noted with doppler. FM also heard. NO VB, LOF. 01/11/21 -???-???-???-???-???-???-???- ???-???-???-???-???- 26w 6d 189 lb 2 oz (+34 lb 2 oz) 118/70 Negative -???-???-???-???-???-???-???- ???-???-???-???-???- Negative 150 27 -???-???-???-???-???-???-???- ???-???-???-???-???- SM- no vb lo f good fm no regular ctx 02/01/21 -???-???-???-???-???-???-???- ???-???-???-???-???- 29w 6d 193 lb (+38 lb) Negative -???-???-???-???-???-???-???- ???-???-???-???-???- Negative 150 30 -???-???-???-???-???-???-???- ???-???-???-???-???- SM- no vb lo f good fm no regular ctx 02/15/21 -???-???-???-???-???-???-???- ???-???-???-???-???- 31w 6d 193 lb (+38 lb) -???-???-???-???-???-???-???- ???-???-???-???-???- 130 -???-???-???-???-???-???-???- ???-???-???-???-???- GP - no LOF, VB, dFM, ctx. Discussed control. LARC form signed. 02/22/21 -???-???-???-???-???-???-???- ???-???-???-???-???- 32w 6d 193 lb 8 oz (+38 lb 8 oz) 138/80 Negative -???-???-???-???-???-???-???- ???-???-???-???-???- Negative 140 -???-???-???-???-???-???-???- ???-???-???-???-???- GP - NST onl y. Reactive. ACOG First Trimester First Trimester: Desire for , Alcohol, Tobacco Cessation, Illicit/Recreational Drug/Substance Use, Intimate Partner Violence, Barriers to care, Unstable Housing, Communication Barriers, Environmental/Work Hazards, Anticipated Course of Care, Toxoplasmosis Precations, Use of Any medications, Sexual activity, Exercise, Dental Care, Sauna/Hot tub use, Seat Belt use, Childbirth classes/Hospital facilities, , Travel, Indications for Ultrasound and Screening for Aneuploidy Diagnostics Diagnostics Diagnostics: Blood Type B POSITIVE Antibody Screen NEGATIVE Glucose 1 Hr 50 gm 100 mg/dL (70-140) HIV 1 2 Antibody Non-Reactive (Nonreactive) Rubella IgG Antibody Reactive (Nonreactive) Hgb 11.0 g/dL (12.0-15.0) L Hct 33.9 % (37-47) L Chlamydia DNA (ADALBERTO) Negative (Negative) N.gonorrhoeae DNA (ADALBERTO) Negative (Negative) Details: HIV: Urine Culture: Sequential Screen: NIPT Screen: Office Procedures Non-stress Test Non-Stress Test Indications for Monitoring: Yes hypertension Heart Rate Baseline: 140 Heart Rate Variability: moderate Movement: Present Heart Rate Accelerations: Present Decelerations: Absent Contractions: Absent Impression: Yes Reactive Non-Stress Test Results POC Urinalysis 2 Dip (Clinic) Office Urine Glucose Negative Last Edit by Jill Ellison on 02/22/21 08:45 Office Urine Protein Negative Last Edit by Jill Ellison on 02/22/21 08:45 Coding Level of Care Code OB Routine CPT Codes Non-Stress Test (46778) Assessment and Plan Plan Details Other Orders: Orders: OB NST Today O10.919 POC Urinalysis 2 Dip (Clinic) Today O10.919 02/22/21 0921 <Electronically signed by Myla Sousa MD> Date Myla Sousa MD Cosigner Signature: Date (if applicable) CC: Arcelia Huston RADIATION MONITOR Work Phone: Start: 02-22-2021 End: 02-25-2021 OB Limited With Biometrics Comments: See Note; NOTES: [facility] Imaging Services [address] [place] [address] OB Limited With Biometrics MR#: [id number] Acct: [id number] Name: REGGIE MILLER Rep #: [id number] : 1995 F 26 From: Markie Dunn MD PCP: Dr. Reina Aguirre, DO Status: REG CLI Study: OB Limited With Biometrics Date of Exam: 02/22 Exam# [id number] Ordering Dr: Melida Rutledge STUDY: SECOND AND THIRD TRIMESTER OBSTETRICAL ULTRASOUND -- Limited REASON FOR EXAM: Female, 26 years old routine survey LMP: 07/07/2020 TECHNIQUE: Transabdominal TECHNICAL QUALITY: Adequate. PRIOR ULTRASOUND: None. FINDINGS: There is a single intrauterine fetus. The fetus is in a breech presentation. There is demonstrated cardiac activity with a heart rate of 133 bpm. There is a normal amniotic fluid volume. The largest amniotic fluid pocket measures 4.6 cm. The amniotic fluid index (FAISAL) is 11.8 cm. The placenta is anterior and fundal, not low-lying There are Grade 1 placental changes. The cervix measures 4.3 cm in length. The adnexal regions are not visualized. BIOMETRY: BPD: 8.05 cm: 32 weeks, 2 days HC: 31.05 cm: 34 weeks, 4 days AC: 29.99 cm: 33 weeks, 6 days FL: 6.66 cm: 34 weeks, 1 days age by current US: 33 weeks, 4 days. SUSANA by current US: 04/08/2021. Estimated weight: 2299 grams, +/- 345 grams, 72 %. Age by LMP: 32 weeks, 6 days. SUSANA by LMP: 04/13/2021. US/OB Limited With Biometrics IMPRESSION: Single live intrauterine at 33 weeks, 4 days by current ultrasound with SUSANA of 04/08/2021. Heart rate of 133 bpm. No suspicious sonographic findings, presentation is breech on this study Electronically Signed: Michael Dunn MD at 9:07 EDT , Service support , CC: Dr. Reina Aguirre DO; Dr. Melida Rutledge MD Commercial Loan Manager: Signed Arcelia Huston CNP Work Phone: Start: 02-15-2021 End: 02-15-2021 Field Worker Office Visit Report Comments: See Note; NOTES: [facility] [address] [place] [address] OFFICE VISIT Date of Service: 02/15/21 MR#: [id number] Acct: [id number] Name: REGGIE MILLER Rep #: [id number] : 1995 Provider: Dr. Myla briceno MD Age/Sex: 26/F Location: [facility] [place] Status: Signed Intake Vital Signs 02/15/21 10:05 02/15/21 10:05 Height 5 ft 7 in Weight: 193 lb BMI 30.2 26.3 Intake Visit Reasons: 32 WK OB/NST Allergies codeine Allergy (Intermediate, Verified 01/11/21 09:27) Nausea Sulfa (Sulfonamide Antibiotics) Allergy (Mild, Verified 01/11/21 09:27) Nausea Last Menstral Period: 07/07/20 PFSH PFSH Medical History Chronic hypertension Kidney infection Liver hemangioma Surgical History History of removal of cyst ( 2013) Family History Mother Hyperlipidemia Father Hyperlipidemia Social History Smoking Status: Never smoker alcohol intake: never substance use type: does not use caffeine: No what type of physical activity do you participate in: none seatbelt use: always do you feel safe at home: Yes 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 Date Name GA/Weeks Outcome Route Bth Weight Infant Gen Labor Lgth Anesthesia Neel Rubin Provider FOB 02/23/19 [place] 38 live - full term 8lbs 2oz Male 24 hours epidural [facility] Marcanthony Delivery Date: 02/23/19 IoL chronic hypertension; 1st degree laceration Yanique Blackburn HPI 32 WK OB/NST Details: REGGIE MILLER is a 26 year old who presents for routine OB visit. OB Visit SUSANA Calculator Estimated Delivery Date Method Current WG Current Estimate 04/13/21 LMP (Certain) 31w 6d Other Estimates 04/15/21 Ultrasound #1 31w 4d Expected Delivery Route/Plan plan IOL at 38-39 Labor Preferences- labor support person: Esdras labor intervention preferences: minimal pain management options preferred: planning epidural cut cord/dad catch: [] : yes PP control planned: declines discussed possible routes of delivery and associated risks: [] special requests: [] Specific Issue/Plans covid status: postitive in flu vaccine: na tdap vaccine: declined rhogam: na LARC form signed: 02/15 movement and labor precautions reviewed. Problem list reviewed and updated with the most current plan of care details and appropriate orders placed. Relevant counseling for the gestational age provided. Continue routine care and follow up unless otherwise noted in visit notes/problem list details Initial Weight: 155 lb Date -???-???-???-???-???-???-???- ???-???-???-???-???- EGA Weight BP Urine Prot -???-???-???-???-???-???-???- ???-???-???-???-???- Glucose FHR FuHt Pres Dilation -???-???-???-???-???-???-???- ???-???-???-???-???- Effaced St Visit Note 09/14/20 -???-???-???-???-???-???-???- ???-???-???-???-???- 9w 6d 154 lb (-16 oz) 140/82 -???-???-???-???-???-???-???- ???-???-???-???-???- 168 -???-???-???-???-???-???-???- ???-???-???-???-???- 09/28/20 -???-???-???-???-???-???-???- ???-???-???-???-???- 11w 6d 118/60 -???-???-???-???-???-???-???- ???-???-???-???-???- -???-???-???-???-???-???-???- ???-???-???-???-???- RN visit for BP check 10/12/20 -???-???-???-???-???-???-???- ???-???-???-???-???- 13w 6d 158 lb 6 oz (+3 lb 6 oz) 136/78 -???-???-???-???-???-???-???- ???-???-???-???-???- 160 -???-???-???-???-???-???-???- ???-???-???-???-???- GP - no cram ping or bleeding. PRR. Anatomy reviewed. 11/09/20 -???-???-???-???-???-???-???- ???-???-???-???-???- 17w 6d 168 lb (+13 lb) 138/68 Negative -???-???-???-???-???-???-???- ???-???-???-???-???- Negative 145 -???-???-???-???-???-???-???- ???-???-???-???-???- Sm- no vb lo f cramping discussed chtn management 12/07/20 -???-???-???-???-???-???-???- ???-???-???-???-???- 21w 6d 179 lb (+24 lb) 120/60 -???-???-???-???-???-???-???- ???-???-???-???-???- 140 -???-???-???-???-???-???-???- ???-???-???-???-???- SM- no vb cr amping 12/17/20 -???-???-???-???-???-???-???- ???-???-???-???-???- 23w 2d 180 lb (+25 lb) 130/62 Trace -???-???-???-???-???-???-???- ???-???-???-???-???- Negative 146 -???-???-???-???-???-???-???- ???-???-???-???-???- MH-work in f or DFM. FHT easily noted with doppler. FM also heard. NO VB, LOF. 01/11/21 -???-???-???-???-???-???-???- ???-???-???-???-???- 26w 6d 189 lb 2 oz (+34 lb 2 oz) 118/70 Negative -???-???-???-???-???-???-???- ???-???-???-???-???- Negative 150 27 -???-???-???-???-???-???-???- ???-???-???-???-???- SM- no vb lo f good fm no regular ctx 02/01/21 -???-???-???-???-???-???-???- ???-???-???-???-???- 29w 6d 193 lb (+38 lb) Negative -???-???-???-???-???-???-???- ???-???-???-???-???- Negative 150 30 -???-???-???-???-???-???-???- ???-???-???-???-???- SM- no vb lo f good fm no regular ctx 02/15/21 -???-???-???-???-???-???-???- ???-???-???-???-???- 31w 6d 193 lb (+38 lb) -???-???-???-???-???-???-???- ???-???-???-???-???- 130 -???-???-???-???-???-???-???- ???-???-???-???-???- GP - no LOF, VB, dFM, ctx. Discussed control. LARC form signed. ACOG First Trimester First Trimester: Desire for , Alcohol, Tobacco Cessation, Illicit/Recreational Drug/Substance Use, Intimate Partner Violence, Barriers to care, Unstable Housing, Communication Barriers, Environmental/Work Hazards, Anticipated Course of Care, Toxoplasmosis Precations, Use of Any medications, Sexual activity, Exercise, Dental Care, Sauna/Hot tub use, Seat Belt use, Childbirth classes/Hospital facilities, , Travel, Indications for Ultrasound and Screening for Aneuploidy Diagnostics Diagnostics Diagnostics: Blood Type B POSITIVE Antibody Screen NEGATIVE Glucose 1 Hr 50 gm 100 mg/dL (70-140) HIV 1 2 Antibody Non-Reactive (Nonreactive) Rubella IgG Antibody Reactive (Nonreactive) Hgb 11.0 g/dL (12.0-15.0) L Hct 33.9 % (37-47) L Chlamydia DNA (ADALBERTO) Negative (Negative) N.gonorrhoeae DNA (ADALBERTO) Negative (Negative) Details: HIV: Urine Culture: Sequential Screen: NIPT Screen: ROS GI Denies dyspepsia, Denies nausea and Denies vomiting Denies abnormal vaginal bleeding, Denies dysuria, Denies pelvic pain, Denies vaginal discharge, Denies vaginal odor and Denies vaginal pruritus Exam Const General: cooperative, healthy appearing, comfortable, no acute distress, well developed and well groomed Nutritional Appearance: average body habitus and well nourished Orientation: alert, awake and oriented x3 [facility] Head: normal to inspection, normocephalic and atraumatic Eyes Pupils: PERRL and accommodation normal Resp Effort Inspection: normal respiratory effort, able to speak in complete sentences and symmetric chest movement Cardio Rate: regular rate GI Palpation: soft, no guarding, no masses and nontender Skin General: no rashes or lesions noted, elasticity normal and turgor normal Neuro General: patient alert, patient awake and patient oriented x3 Cranial Nerves: CN's II-XI intact bilaterally, sense of smell intact, PERRL, accommodation normal and EOM intact bilaterally Speech: speech normal Gait: normal gait Psych Appearance: grossly normal and well kempt Mental Status: mental status grossly normal Mood: congruent mood Affect: normal affect Speech and Movement: speech and movement normal Attitude: cooperative Thought Process: normal Thought Content: normal Judgment: judgment good Office Procedures Non-stress Test Non-Stress Test Indications for Monitoring: Yes hypertension Heart Rate Baseline: 130 Heart Rate Variability: moderate Movement: Present Heart Rate Accelerations: Present Decelerations: Absent Contractions: Absent Impression: Yes Reactive Non-Stress Test Coding Level of Care Code OB Routine Diagnoses COVID-19 U07.1 Chronic hypertension affecting O10.919 Supervision of high risk , antepartum O09.90 Z3A.29 Weeks of gestation: 29 weeks CPT Codes Non-Stress Test (60688) Assessment and Plan Assessment and Plan (1) COVID-19: Status: Acute Comment: Had all symptoms at 7 weeks. Antibody testing ordered at NOB. (2) Chronic hypertension affecting : Status: Chronic Comment: On labetalol in last preg. No meds now. Baseline PreE labs nl. declines ASA. Discussed testing and likely delivery at 38w. (3) Supervision of high risk , antepartum: Status: Acute Comment: PRR SUSANA 04/13/21 boy PC: Frank Spouse: Esdras Orders: Orders: OB NST Today (4) : Status: Acute Qualifiers: Weeks of gestation: 29 weeks Qualified Code(s): Z3A.29 - 29 weeks gestation of Comment: genetics- low risk, declines carrier, and ntd screening. anatomy normal 02/15/21 1040 <Electronically signed by Myla Sousa MD> Date Myla Sousa MD Cosigner Signature: Date (if applicable) CC: Arcelia Huston [facility] Work Phone: Start: 02-01-2021 End: 02-01-2021 Field Worker Office Visit Report Comments: See Note; NOTES: [facility] [address] [place] [address] OFFICE VISIT Date of Service: 02/01/21 MR#: [id number] Acct: [id number] Name: REGGIE MILLER Rep #: [id number] : 1995 Provider: Dr. Melida solares MD Age/Sex: 26/F Location: [facility] [place] Status: Signed Intake Vital Signs 02/01/21 10:00 02/01/21 10:01 Height 5 ft 7 in Weight: 193 lb BMI 30.2 26.3 Intake Visit Reasons: 30 WK OB Chief Complaint: est ob Visualizer Required: No Is patient in pain?: No Allergies codeine Allergy (Intermediate, Verified 01/11/21 09:27) Nausea Sulfa (Sulfonamide Antibiotics) Allergy (Mild, Verified 01/11/21 09:27) Nausea Medications multivitamin no.47-iron fum 27 mg-folate no.1 1 mg-dha 300 mg capsule cap PO 09/04/20 [History Confirmed 02/01/21] Last Menstral Period: 07/07/20 Zika: Zika virus screening: Negative : No PFSH PFSH Medical History Chronic hypertension Kidney infection Liver hemangioma Surgical History History of removal of cyst ( 2013) Family History Mother Hyperlipidemia Father Hyperlipidemia Social History Smoking Status: Never smoker alcohol intake: never substance use type: does not use caffeine: No what type of physical activity do you participate in: none seatbelt use: always do you feel safe at home: Yes 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 Date Name GA/Weeks Outcome Route Bth Weight Infant Gen Labor Lgth Anesthesia Del Scottie Provider FOB 02/23/19 [place] 38 live - full term 8lbs 2oz Male 24 hours epidural [facility] Marlonony Delivery Date: 02/23/19 IoL chronic hypertension; 1st degree laceration BereYanique HPI 30 WK OB Details: REGGIE MILLER is a 26 year old who presents for routine OB visit. OB Visit SUSANA Calculator Estimated Delivery Date Method Current WG Current Estimate 04/13/21 LMP (Certain) 29w 6d Other Estimates 04/15/21 Ultrasound #1 29w 4d Expected Delivery Route/Plan plan IOL at 38-39 Labor Preferences- labor support person: Esdras labor intervention preferences: minimal pain management options preferred: planning epidural cut cord/dad catch: [] : [] PP control planned: [] discussed possible routes of delivery and associated risks: [] special requests: [] Specific Issue/Plans covid status: postitive in flu vaccine: na tdap vaccine: declined rhogam: na LARC form signed: [] movement and labor precautions reviewed. Problem list reviewed and updated with the most current plan of care details and appropriate orders placed. Relevant counseling for the gestational age provided. Continue routine care and follow up unless otherwise noted in visit notes/problem list details Initial Weight: 155 lb Date -???-???-???-???-???-???-???- ???-???-???-???-???- EGA Weight BP Urine Prot -???-???-???-???-???-???-???- ???-???-???-???-???- Glucose FHR FuHt Pres Dilation -???-???-???-???-???-???-???- ???-???-???-???-???- Effaced St Visit Note 09/14/20 -???-???-???-???-???-???-???- ???-???-???-???-???- 9w 6d 154 lb (-16 oz) 140/82 -???-???-???-???-???-???-???- ???-???-???-???-???- 168 -???-???-???-???-???-???-???- ???-???-???-???-???- 09/28/20 -???-???-???-???-???-???-???- ???-???-???-???-???- 11w 6d 118/60 -???-???-???-???-???-???-???- ???-???-???-???-???- -???-???-???-???-???-???-???- ???-???-???-???-???- RN visit for BP check 10/12/20 -???-???-???-???-???-???-???- ???-???-???-???-???- 13w 6d 158 lb 6 oz (+3 lb 6 oz) 136/78 -???-???-???-???-???-???-???- ???-???-???-???-???- 160 -???-???-???-???-???-???-???- ???-???-???-???-???- GP - no cram ping or bleeding. PRR. Anatomy reviewed. 11/09/20 -???-???-???-???-???-???-???- ???-???-???-???-???- 17w 6d 168 lb (+13 lb) 138/68 Negative -???-???-???-???-???-???-???- ???-???-???-???-???- Negative 145 -???-???-???-???-???-???-???- ???-???-???-???-???- Sm- no vb lo f cramping discussed chtn management 12/07/20 -???-???-???-???-???-???-???- ???-???-???-???-???- 21w 6d 179 lb (+24 lb) 120/60 -???-???-???-???-???-???-???- ???-???-???-???-???- 140 -???-???-???-???-???-???-???- ???-???-???-???-???- SM- no vb cr amping 12/17/20 -???-???-???-???-???-???-???- ???-???-???-???-???- 23w 2d 180 lb (+25 lb) 130/62 Trace -???-???-???-???-???-???-???- ???-???-???-???-???- Negative 146 -???-???-???-???-???-???-???- ???-???-???-???-???- MH-work in f or DFM. FHT easily noted with doppler. FM also heard. NO VB, LOF. 01/11/21 -???-???-???-???-???-???-???- ???-???-???-???-???- 26w 6d 189 lb 2 oz (+34 lb 2 oz) 118/70 Negative -???-???-???-???-???-???-???- ???-???-???-???-???- Negative 150 27 -???-???-???-???-???-???-???- ???-???-???-???-???- SM- no vb lo f good fm no regular ctx 02/01/21 -???-???-???-???-???-???-???- ???-???-???-???-???- 29w 6d 193 lb (+38 lb) Negative -???-???-???-???-???-???-???- ???-???-???-???-???- Negative 150 30 -???-???-???-???-???-???-???- ???-???-???-???-???- SM- no vb lo f good fm no regular ctx ACOG First Trimester First Trimester: Desire for , Alcohol, Tobacco Cessation, Illicit/Recreational Drug/Substance Use, Intimate Partner Violence, Barriers to care, Unstable Housing, Communication Barriers, Environmental/Work Hazards, Anticipated Course of Care, Toxoplasmosis Precations, Use of Any medications, Sexual activity, Exercise, Dental Care, Sauna/Hot tub use, Seat Belt use, Childbirth classes/Hospital facilities, , Travel, Indications for Ultrasound and Screening for Aneuploidy Diagnostics Diagnostics Diagnostics: Blood Type B POSITIVE Antibody Screen NEGATIVE Glucose 1 Hr 50 gm 100 mg/dL (70-140) HIV 1 2 Antibody Non-Reactive (Nonreactive) Rubella IgG Antibody Reactive (Nonreactive) Hgb 11.0 g/dL (12.0-15.0) L Hct 33.9 % (37-47) L Chlamydia DNA (ADALBERTO) Negative (Negative) N.gonorrhoeae DNA (ADALBERTO) Negative (Negative) Details: HIV: Urine Culture: Sequential Screen: NIPT Screen: Results POC Urinalysis 2 Dip (Clinic) Office Urine Glucose Negative Last Edit by Barb Arriaza on 02/01/21 10:06 Office Urine Protein Negative Last Edit by Barb Arriaza on 02/01/21 10:06 Coding Level of Care Code OB Routine Diagnoses COVID-19 U07.1 Chronic hypertension affecting O10.919 Supervision of high risk , antepartum O09.90 Z3A.29 Weeks of gestation: 29 weeks Assessment and Plan Assessment and Plan (1) COVID-19: Status: Acute Comment: Had all symptoms at 7 weeks. Antibody testing ordered at [facility]. (2) Chronic hypertension affecting : Status: Chronic Comment: On labetalol in last preg. No meds now. Baseline PreE labs nl. declines ASA. Discussed testing and likely delivery at 38w. (3) Supervision of high risk , antepartum: Status: Acute Comment: PRR SUSANA 04/13/21 boy PC: Frank Spouse: Esdras (4) : Status: Acute Qualifiers: Weeks of gestation: 29 weeks Qualified Code(s): Z3A.29 - 29 weeks gestation of Comment: genetics- low risk, declines carrier, and ntd screening. anatomy normal Plan Details Other Orders: Orders: POC Urinalysis 2 Dip (Clinic) Today 02/01/21 1016 <Electronically signed by Melida Rutledge MD> Date Melida Rutledge MD Cosigner Signature: Date (if applicable) CC: Arcelia Huston ANGEL Work Phone: Start: 01-11-2021 End: 01-11-2021 Field Worker Office Visit Report Comments: See Note; NOTES: [facility] [address] [place] [address] OFFICE VISIT Date of Service: 01/11/21 MR#: [id number] Acct: [id number] Name: REGGIE MILLER Rep #: [id number] 1 : 1995 Provider: Dr. Melida solares MD Age/Sex: 25/F Location: [facility] [place] Status: Signed Intake Vital Signs 01/11/21 09:27 01/11/21 09:29 Height 5 ft 7 in Weight: 189 lb 2 oz BMI 29.6 26.3 BP 118/70 Intake Visit Reasons: 27 WK OB/GLUCOSE Allergies codeine Allergy (Intermediate, Verified 01/11/21 09:27) Nausea Sulfa (Sulfonamide Antibiotics) Allergy (Mild, Verified 01/11/21 09:27) Nausea Medications multivitamin no.47-iron fum 27 mg-folate no.1 1 mg-dha 300 mg capsule cap PO 09/04/20 [History Confirmed 01/11/21] Last Menstral Period: 07/07/20 Zika: Zika virus screening: Negative : No PFSH PFSH Medical History Chronic hypertension Kidney infection Liver hemangioma Surgical History History of removal of cyst ( 2013) Family History Mother Hyperlipidemia Father Hyperlipidemia Social History Smoking Status: Never smoker alcohol intake: never substance use type: does not use caffeine: No what type of physical activity do you participate in: none seatbelt use: always do you feel safe at home: Yes 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 Date Name GA/Weeks Outcome Route Bth Weight Gen Labor Lgth Anesthesia Del Jabieratn Provider FOB 02/23/19 [place] 38 live - full term 8lbs 2oz Male 24 hours epidural [facility] Marlonony Delivery Date: 02/23/19 IoL chronic hypertension; 1st degree laceration BereYanique HPI 27 WK OB/GLUCOSE Details: REGGIE MILLER is a 25 year old who presents for routine OB visit. OB Visit SUSANA Calculator Estimated Delivery Date Method Current WG Current Estimate 04/13/21 LMP (Certain) 26w 6d Other Estimates 04/15/21 Ultrasound #1 26w 4d Expected Delivery Route/Plan plan IOL at 38-39 Labor Preferences- labor support person: [] labor intervention preferences: [] pain management options preferred: [] cut cord/dad catch: [] : [] PP control planned: [] discussed possible routes of delivery and associated risks: [] special requests: [] Specific Issue/Plans covid status: flu vaccine: na tdap vaccine: [] rhogam: [] LARC form signed: [] movement and labor precautions reviewed. Problem list reviewed and updated with the most current plan of care details and appropriate orders placed. Relevant counseling for the gestational age provided. Continue routine care and follow up unless otherwise noted in visit notes/problem list details Initial Weight: 155 lb Date -???-???-???-???-???-???-???- ???-???-???-???-???- EGA Weight BP Urine Prot -???-???-???-???-???-???-???- ???-???-???-???-???- Glucose FHR FuHt Pres Dilation -???-???-???-???-???-???-???- ???-???-???-???-???- Effaced St Visit Note 09/14/20 -???-???-???-???-???-???-???- ???-???-???-???-???- 9w 6d 154 lb (-16 oz) 140/82 -???-???-???-???-???-???-???- ???-???-???-???-???- 168 -???-???-???-???-???-???-???- ???-???-???-???-???- 09/28/20 -???-???-???-???-???-???-???- ???-???-???-???-???- 11w 6d 118/60 -???-???-???-???-???-???-???- ???-???-???-???-???- -???-???-???-???-???-???-???- ???-???-???-???-???- RN visit for BP check 10/12/20 -???-???-???-???-???-???-???- ???-???-???-???-???- 13w 6d 158 lb 6 oz (+3 lb 6 oz) 136/78 -???-???-???-???-???-???-???- ???-???-???-???-???- 160 -???-???-???-???-???-???-???- ???-???-???-???-???- GP - no cram ping or bleeding. PRR. Anatomy reviewed. 11/09/20 -???-???-???-???-???-???-???- ???-???-???-???-???- 17w 6d 168 lb (+13 lb) 138/68 Negative -???-???-???-???-???-???-???- ???-???-???-???-???- Negative 145 -???-???-???-???-???-???-???- ???-???-???-???-???- Sm- no vb lo f cramping discussed chtn management 12/07/20 -???-???-???-???-???-???-???- ???-???-???-???-???- 21w 6d 179 lb (+24 lb) 120/60 -???-???-???-???-???-???-???- ???-???-???-???-???- 140 -???-???-???-???-???-???-???- ???-???-???-???-???- SM- no vb cr amping 12/17/20 -???-???-???-???-???-???-???- ???-???-???-???-???- 23w 2d 180 lb (+25 lb) 130/62 Trace -???-???-???-???-???-???-???- ???-???-???-???-???- Negative 146 -???-???-???-???-???-???-???- ???-???-???-???-???- -work in f or DFM. FHT easily noted with doppler. FM also heard. NO VB, LOF. 01/11/21 -???-???-???-???-???-???-???- ???-???-???-???-???- 26w 6d 189 lb 2 oz (+34 lb 2 oz) 118/70 Negative -???-???-???-???-???-???-???- ???-???-???-???-???- Negative 150 27 -???-???-???-???-???-???-???- ???-???-???-???-???- SM- no vb lo f good fm no regular ctx ACOG First Trimester First Trimester: Desire for , Alcohol, Tobacco Cessation, Illicit/Recreational Drug/Substance Use, Intimate Partner Violence, Barriers to care, Unstable Housing, Communication Barriers, Environmental/Work Hazards, Anticipated Course of Care, Toxoplasmosis Precations, Use of Any medications, Sexual activity, Exercise, Dental Care, Sauna/Hot tub use, Seat Belt use, Childbirth classes/Hospital facilities, , Travel, Indications for Ultrasound and Screening for Aneuploidy Diagnostics Diagnostics Diagnostics: Blood Type B POSITIVE Antibody Screen NEGATIVE HIV 1 2 Antibody Non-Reactive (Nonreactive) Rubella IgG Antibody Reactive (Nonreactive) Hgb 12.6 g/dL (12.0-15.0) Hct 37.1 % (37-47) Chlamydia DNA (ADALBERTO) Negative (Negative) N.gonorrhoeae DNA (ADALBERTO) Negative (Negative) Details: HIV: Urine Culture: Sequential Screen: NIPT Screen: Results POC Urinalysis 2 Dip (Clinic) Office Urine Glucose Negative Last Edit by Mary Beth Harding on 01/11/21 09:33 Office Urine Protein Negative Last Edit by Mary Beth Harding on 01/11/21 09:33 Coding Level of Care Code OB Routine Diagnoses Z3A.13 Weeks of gestation: 13 weeks Supervision of high risk , antepartum O09.90 Chronic hypertension affecting O10.919 COVID-19 U07.1 Assessment and Plan Assessment and Plan (1) : Status: Acute Qualifiers: Weeks of gestation: 13 weeks Qualified Code(s): Z3A.13 - 13 weeks gestation of Comment: genetics- low risk, declines carrier, and ntd screening. anatomy normal (2) Supervision of high risk , antepartum: Status: Acute Comment: PRR SUSANA 04/13/21 boy PC: Calem Spouse: Esdras (3) Chronic hypertension affecting : Status: Chronic Comment: On labetalol in last preg. No meds now. Baseline PreE labs nl. declines ASA. Discussed testing and likely delivery at 38w. (4) COVID-19: Status: Acute Comment: Had all symptoms at 7 weeks. Antibody testing ordered at [facility]. Orders: Orders: CBC W/Diff, Automated Today Z3A.13 Plan Details Other Orders: Orders: POC Urinalysis 2 Dip (Clinic) Today Glucose Challenge Gest 1H 50g Today Z13.1 01/11/21 0952 <Electronically signed by Melida Rutledge MD> Date Melida Rutledge MD [facility] Signature: Date (if applicable) CC: Arcelia Huston CNP Work Phone: Start: 12-17-2020 End: 12-17-2020 Field Worker Office Visit Report Comments: See Note; NOTES: [facility] [address] [place], [place] [address]katrin. [address] [place], [place] [address] OFFICE VISIT Date of Service: 12/17/20 MR#: [id number] Acct: [id number] Name: REGGIE MILLER Rep #: [id number] 4 : 1995 Provider: CARLOS hernandez Age/Sex: 25/F Location: [facility] Status: Signed Intake Vital Signs 12/17/20 08:53 12/17/20 08:57 Height 5 ft 7 in Weight: 180 lb BMI 28.1 26.3 BP 130/62 H Intake Visit Reasons: FHR Visualizer Required: No Accompanied by: self Allergies codeine Allergy (Intermediate, Verified 12/17/20 08:54) Nausea Sulfa (Sulfonamide Antibiotics) Allergy (Mild, Verified 12/17/20 08:54) Nausea Medications multivitamin no.47-iron fum 27 mg-folate no.1 1 mg-dha 300 mg capsule cap PO 09/04/20 [History Confirmed 12/17/20] Last Menstral Period: 07/07/20 Zika: Zika virus screening: Negative : No PFSH PFSH Medical History Chronic hypertension Kidney infection Liver hemangioma Surgical History History of removal of cyst ( 2013) Family History Mother Hyperlipidemia Father Hyperlipidemia Social History Smoking Status: Never smoker alcohol intake: never substance use type: does not use caffeine: No what type of physical activity do you participate in: none seatbelt use: always do you feel safe at home: Yes 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 Date Name GA/Weeks Outcome Route Bth Weight Infant Gen Labor Lgth Anesthesia Del [facility] Provider FOB 02/23/19 Cal[place] 38 live - full term 8lbs 2oz Male 24 hours epidural [facility] Marlonony Delivery Date: 02/23/19 IoL chronic hypertension; 1st degree laceration Yanique Blackburn HPI FHR Details: REGGIE MILLER is a 25 year old who presents for routine OB visit. OB Visit SUSANA Calculator Estimated Delivery Date Method Current WG Current Estimate 04/13/21 LMP (Certain) 23w 2d Other Estimates 04/15/21 Ultrasound #1 23w 0d Expected Delivery Route/Plan plan IOL at 38-39 Labor Preferences- labor support person: [] labor intervention preferences: [] pain management options preferred: [] cut cord/dad catch: [] : [] PP control planned: [] discussed possible routes of delivery and associated risks: [] special requests: [] Specific Issue/Plans flu vaccine: na tdap vaccine: [] rhogam: [] LARC form signed: [] Problem list reviewed and updated with the most current plan of care details and appropriate orders placed. Relevant counseling for the gestational age provided. Continue routine care and follow up unless otherwise noted in visit notes/problem list details Initial Weight: 155 lb Date -???-???-???-???-???-???-???- ???-???-???-???-???- EGA Weight BP Urine Prot -???-???-???-???-???-???-???- ???-???-???-???-???- Glucose FHR FuHt Pres Dilation -???-???-???-???-???-???-???- ???-???-???-???-???- Effaced St Visit Note 09/14/20 -???-???-???-???-???-???-???- ???-???-???-???-???- 9w 6d 154 lb (-16 oz) 140/82 -???-???-???-???-???-???-???- ???-???-???-???-???- 168 -???-???-???-???-???-???-???- ???-???-???-???-???- 09/28/20 -???-???-???-???-???-???-???- ???-???-???-???-???- 11w 6d 118/60 -???-???-???-???-???-???-???- ???-???-???-???-???- -???-???-???-???-???-???-???- ???-???-???-???-???- RN visit for BP check 10/12/20 -???-???-???-???-???-???-???- ???-???-???-???-???- 13w 6d 158 lb 6 oz (+3 lb 6 oz) 136/78 -???-???-???-???-???-???-???- ???-???-???-???-???- 160 -???-???-???-???-???-???-???- ???-???-???-???-???- GP - no cram ping or bleeding. PRR. Anatomy reviewed. 11/09/20 -???-???-???-???-???-???-???- ???-???-???-???-???- 17w 6d 168 lb (+13 lb) 138/68 Negative -???-???-???-???-???-???-???- ???-???-???-???-???- Negative 145 -???-???-???-???-???-???-???- ???-???-???-???-???- Sm- no vb lo f cramping discussed chtn management 12/07/20 -???-???-???-???-???-???-???- ???-???-???-???-???- 21w 6d 179 lb (+24 lb) 120/60 -???-???-???-???-???-???-???- ???-???-???-???-???- 140 -???-???-???-???-???-???-???- ???-???-???-???-???- SM- no vb cr amping 12/17/20 -???-???-???-???-???-???-???- ???-???-???-???-???- 23w 2d 180 lb (+25 lb) 130/62 Trace -???-???-???-???-???-???-???- ???-???-???-???-???- Negative 146 -???-???-???-???-???-???-???- ???-???-???-???-???- -work in or [facility]. FHT easily noted with doppler. FM also heard. NO VB, LOF. ACOG First Trimester First Trimester: Desire for , Alcohol, Tobacco Cessation, Illicit/Recreational Drug/Substance Use, Intimate Partner Violence, Barriers to care, Unstable Housing, Communication Barriers, Environmental/Work Hazards, Anticipated Course of Care, Toxoplasmosis Precations, Use of Any medications, Sexual activity, Exercise, Dental Care, Sauna/Hot tub use, Seat Belt use, Childbirth classes/Hospital facilities, , Travel, Indications for Ultrasound and Screening for Aneuploidy Diagnostics Diagnostics Diagnostics: Blood Type B POSITIVE Antibody Screen NEGATIVE HIV 1 2 Antibody Non-Reactive (Nonreactive) Rubella IgG Antibody Reactive (Nonreactive) Hgb 12.6 g/dL (12.0-15.0) Hct 37.1 % (37-47) Chlamydia DNA (ADALBERTO) Negative (Negative) N.gonorrhoeae DNA (ADALBERTO) Negative (Negative) Details: HIV: Urine Culture: Sequential Screen: NIPT Screen: Results POC Urinalysis 2 Dip (Clinic) Office Urine Glucose Negative Last Edit by Mary Beth Harding on 12/17/20 08:57 Office Urine Protein Trace Last Edit by Mary Beth Harding on 12/17/20 08:57 Coding Level of Care Code OB Routine Diagnoses Supervision of high risk , antepartum O09.90 Chronic hypertension affecting O10.919 Z3A.13 Weeks of gestation: 13 weeks Assessment and Plan Assessment and Plan (1) Supervision of high risk , antepartum: Status: Acute Comment: PRR SUSANA 04/13/21 boy PC: Frank Spouse: Esdras (2) Chronic hypertension affecting : Status: Chronic Comment: On labetalol in last preg. No meds now. Baseline PreE labs nl. declines ASA. Discussed testing and likely delivery at 38w. (3) : Status: Acute Qualifiers: Weeks of gestation: 13 weeks Qualified Code(s): Z3A.13 - 13 weeks gestation of Comment: genetics- low risk, declines carrier, and ntd screening. anatomy normal Plan - Gina Jimenes NP, DEVELOPMENT ASSISTANT-C: problem list reviewed and updated for most current plan of care and appropriate orders placed. Relevant counseling for the gestational age appropriate provided and ACOG education checklist updated. Continue routine care and follow up. Plan Details Other Orders: Orders: POC Urinalysis 2 Dip (Clinic) Today 12/17/20 0907 <Electronically signed by Gina Jimenes NP DEVELOPMENT ASSISTANT-C> Date Gina Jimenes NP DEVELOPMENT ASSISTANT-C Cosigner Signature: Date (if applicable) CC: Arcelia Huston RADIATION MONITOR Work Phone: Start: 12-07-2020 End: 12-07-2020 Field Worker Office Visit Report Comments: See Note; NOTES: [facility] [address] [place] [address] OFFICE VISIT Date of Service: 12/07/20 MR#: [id number] Acct: [id number] Name: REGGIE MILLER Rep #: [id number] 7 : 1995 Provider: Dr. Melida solares MD Age/Sex: 25/F Location: [facility] [place] Status: Signed Intake Vital Signs 12/07/20 10:18 12/07/20 10:21 Height 5 ft 7 in Weight: 179 lb BMI 28.0 26.3 BP 120/60 Intake Visit Reasons: 22 WK OB Chief Complaint: est ob Visualizer Required: No Is patient in pain?: No Allergies codeine Allergy (Intermediate, Verified 11/09/20 09:28) Nausea Sulfa (Sulfonamide Antibiotics) Allergy (Mild, Verified 11/09/20 09:28) Nausea Last Menstral Period: 07/07/20 Zika: Zika virus screening: Negative : No PFSH PFSH Medical History (Updated 12/07/20 @ 10:[address] 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 Date Name GA/Weeks Outcome Route Bth Weight Infant Gen Labor Lgth Anesthesia Del Locatn Provider FOB 02/23/19 [place] 38 live - full term 8lbs 2oz Male 24 hours epidural [facility] Antonio Delivery Date: 02/23/19 IoL chronic hypertension; 1st degree laceration Yanique Blackburn HPI 22 WK OB Details: REGGIE MILLER is a 25 year old who presents for routine OB visit. OB Visit SUSANA Calculator Estimated Delivery Date Method Current WG Current Estimate 04/13/21 LMP (Certain) 21w 6d Other Estimates 04/15/21 Ultrasound #1 21w 4d Expected Delivery Route/Plan plan IOL at 38-39 Labor Preferences- labor support person: [] labor intervention preferences: [] pain management options preferred: [] cut cord/dad catch: [] : [] PP control planned: [] discussed possible routes of delivery and associated risks: [] special requests: [] Specific Issue/Plans flu vaccine: na tdap vaccine: [] rhogam: [] LARC form signed: [] Problem list reviewed and updated with the most current plan of care details and appropriate orders placed. Relevant counseling for the gestational age provided. Continue routine care and follow up unless otherwise noted in visit notes/problem list details Initial Weight: 155 lb Date -???-???-???-???-???-???-???- ???-???-???-???-???- EGA Weight BP Urine Prot -???-???-???-???-???-???-???- ???-???-???-???-???- Glucose FHR FuHt Pres Dilation -???-???-???-???-???-???-???- ???-???-???-???-???- Effaced St Visit Note 09/14/20 -???-???-???-???-???-???-???- ???-???-???-???-???- 9w 6d 154 lb (-16 oz) 140/82 -???-???-???-???-???-???-???- ???-???-???-???-???- 168 -???-???-???-???-???-???-???- ???-???-???-???-???- 09/28/20 -???-???-???-???-???-???-???- ???-???-???-???-???- 11w 6d 118/60 -???-???-???-???-???-???-???- ???-???-???-???-???- -???-???-???-???-???-???-???- ???-???-???-???-???- RN visit for BP check 10/12/20 -???-???-???-???-???-???-???- ???-???-???-???-???- 13w 6d 158 lb 6 oz (+3 lb 6 oz) 136/78 -???-???-???-???-???-???-???- ???-???-???-???-???- 160 -???-???-???-???-???-???-???- ???-???-???-???-???- GP - no cram ping or bleeding. PRR. Anatomy reviewed. 11/09/20 -???-???-???-???-???-???-???- ???-???-???-???-???- 17w 6d 168 lb (+13 lb) 138/68 Negative -???-???-???-???-???-???-???- ???-???-???-???-???- Negative 145 -???-???-???-???-???-???-???- ???-???-???-???-???- Sm- no vb lo nestor porter discussed chtn management 12/07/20 -???-???-???-???-???-???-???- ???-???-???-???-???- 21w 6d 179 lb (+24 lb) 120/60 -???-???-???-???-???-???-???- ???-???-???-???-???- 140 -???-???-???-???-???-???-???- ???-???-???-???-???- SM- no vb cr amping ACOG First Trimester First Trimester: Desire for , Alcohol, Tobacco Cessation, Illicit/Recreational Drug/Substance Use, Intimate Partner Violence, Barriers to care, Unstable Housing, Communication Barriers, Environmental/Work Hazards, Anticipated Course of Care, Toxoplasmosis Precations, Use of Any medications, Sexual activity, Exercise, Dental Care, Sauna/Hot tub use, Seat Belt use, Childbirth classes/Hospital facilities, , Travel, Indications for Ultrasound and Screening for Aneuploidy Diagnostics Diagnostics Diagnostics: Blood Type B POSITIVE Antibody Screen NEGATIVE HIV 1 2 Antibody Non-Reactive (Nonreactive) Rubella IgG Antibody Reactive (Nonreactive) Hgb 12.6 g/dL (12.0-15.0) Hct 37.1 % (37-47) Chlamydia DNA (ADALBERTO) Negative (Negative) N.gonorrhoeae DNA (ADALBERTO) Negative (Negative) Details: HIV: Urine Culture: Sequential Screen: NIPT Screen: Coding Level of Care Code OB Routine Diagnoses COVID-19 U07.1 Liver hemangioma D18.03 Chronic hypertension affecting O10.919 Supervision of high risk , antepartum O09.90 Z3A.13 Weeks of gestation: 13 weeks Assessment and Plan Assessment and Plan (1) COVID-19: Status: Acute Comment: Had all symptoms at 7 weeks. Antibody testing ordered at B. (2) Liver hemangioma: Status: Resolved Comment: Noted on MRI scan 05/2020 (3) Chronic hypertension affecting : Status: Chronic Comment: On labetalol in last preg. No meds now. Baseline PreE labs nl. declines ASA. Discussed testing and likely delivery at 38w. (4) Supervision of high risk , antepartum: Status: Acute Comment: PRR SUSANA 04/13/21 boy PC: Frank Spouse: Esdras (5) : Status: Acute Qualifiers: Weeks of gestation: 13 weeks Qualified Code(s): Z3A.13 - 13 weeks gestation of Comment: genetics- low risk, declines carrier, and ntd screening. anatomy normal Plan Details Other Orders: Orders: POC Urinalysis 2 Dip (Clinic) Today 12/07/20 1036 <Electronically signed by Melida Rutledge MD> Date Melida Rutledge MD Cosigner Signature: Date (if applicable) CC: Arcelia Huston [employer] MONITOR Work Phone: Start: 11-23-2020 End: 11-23-2020 OB Anatomy Scan Comments: See Note; NOTES: [facility] Imaging Services [address] [place] [address] OB Anatomy Scan MR#: [id number] Acct: [id number] Name: REGGIE MILLER Rep #: [id number] : 1995 F 25 From: Jaciel garcia MD PCP: Dr. Reina Aguirre, DO Status: REG CLI Study: OB Anatomy Scan Date of Exam: 11/23/20 Exam# [id number] Ordering Dr: Myla Sousa MD STUDY: SECOND AND THIRD TRIMESTER OBSTETRICAL ULTRASOUND REASON FOR EXAM: Female, 25 years old anatomy LMP: 07/07/2020. TECHNIQUE: Transabdominal and Transvaginal TECHNICAL QUALITY: Adequate. PRIOR ULTRASOUND: None. FINDINGS: There is a single intrauterine fetus. The fetus is in a viable presentation. There is demonstrated cardiac activity with a heart rate of 150 bpm. There is a normal amniotic fluid volume. The largest amniotic fluid pocket measures 3.6 cm. The amniotic fluid index (FAISAL) is within normal limits. The placenta is anterior in location and is not low lying. There are Grade 0 placental changes. The cervix measures 4.8 cm in length. The bilateral adnexal regions are normal. BIOMETRY: BPD: 4.37 cm: 19 weeks, 2 days HC: 17.19 cm: 19 weeks, 6 days AC: 14.61 cm: 20 weeks, 0 days FL: 3.22 cm: 20 weeks, 1 days CI: 72% FL/BPD: 74% FL/HC: FL/AC: 22% HC/AC: 1.18 age by current US: 19 weeks, 6 days. SUSANA by current US: 04/13/2020. Estimated weight: 321 grams, +/- 47 grams, 49 %. Age by LMP: 19 weeks, 6 days. SUSANA by LMP: 04/13/2020. ANATOMY: Gender: Male Cranium: Normal lateral ventricles. Normal choroid plexus. Normal cerebellum. Normal cisterna magna. Normal face, nose and lips. Chest: Normal 4-chamber heart. Abdomen/Pelvis: Normal diaphragm. Normal stomach. Normal abdominal wall. Normal cord insertion. Normal 3 vessel cord. Normal kidneys. Normal bladder. Spine: Normal cervical spine. Normal thoracic spine. Normal lumbar spine. Normal sacrum. Extremities: Normal bilateral upper extremities. Normal bilateral lower extremities. US/OB Anatomy Scan IMPRESSION: Single live intrauterine gestation with a mean gestational age of 19 weeks and 6 days. Electronically Signed: Jaciel Galarza MD at 13:39 EDT , Service support , CC: Dr. Reina Aguirre DO; Dr. Myla Sousa MD Commercial Loan Manager: Signed Arcelia Huston CNP Work Phone: Start: 11-09-2020 End: 11-09-2020 Field Worker Office Visit Report Comments: See Note; NOTES: [facility] [address] [place], [place] [address] OFFICE VISIT Date of Service: 11/09/20 MR#: [id number] Acct: [id number] Name: REGGIE MILLER Rep #: [id number] : 1995 Provider: Dr. Melida solares MD Age/Sex: 25/F Location: [facility] [place] Status: Signed Intake Vital Signs 11/09/20 Height 5 ft 7 in 11/09/20 Weight: 168 lb 11/09/20 BMI 26.3 11/09/20 BP 138/68 H Intake Visit Reasons: 18 WK OB Chief Complaint: est ob Visualizer Required: No Is patient in pain?: No Allergies codeine Allergy (Intermediate, Verified 11/09/20 09:28) Nausea Sulfa (Sulfonamide Antibiotics) Allergy (Mild, Verified 11/09/20 09:28) Nausea Medications multivitamin no.47-iron fum 27 mg-folate no.1 1 mg-dha 300 mg capsule cap PO 09/04/20 [History Confirmed 11/09/20] Last Menstral Period: 07/07/20 Zika: Zika virus screening: Negative : No PFSH PFSH Medical History Liver hemangioma (Acute) Chronic hypertension (Chronic) Kidney infection (Resolved) Surgical History History of removal of cyst (Resolved 2013) Family History Mother Hyperlipidemia Father Hyperlipidemia Social History (Updated 11/09/20 @ 09:[address] 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 Date Name GA/Weeks Outcome Route Bth Weight Gen Labor Lgth Anesthesia Del Locatn Provider FOB 02/23/19 Cal[place] 38 live - full term 8lbs 2oz Male 24 hours epidural [facility] Antonio Delivery Date: 02/23/19 IoL chronic hypertension; 1st degree laceration Yanique Blackburn HPI 18 WK OB: Details: REGGIE MILLER is a 25 year old who presents for routine OB visit. OB Visit SUSANA Calculator Estimated Delivery Date Method Current WG Current Estimate 04/13/21 LMP (Certain) 17w 6d Other Estimates 04/15/21 Ultrasound #1 17w 4d Expected Delivery Route/Plan Labor Preferences- CB/BF classes: [] labor support person: [] labor intervention preferences: [] pain management options preferred: [] cut cord/dad catch: [] : [] PP control planned: [] discussed possible routes of delivery and associated risks: [] special requests: [] Specific Issue/Plans flu vaccine: na tdap vaccine: [] rhogam: [] LARC form signed: [] Problem list reviewed and updated with the most current plan of care details and appropriate orders placed. Relevant counseling for the gestational age provided. Continue routine care and follow up unless otherwise noted in visit notes/problem list details Initial Weight: 155 lb Date -???-???-???-???-???-???-???- ???-???-???-???-???- EGA Weight BP Urine Prot -???-???-???-???-???-???-???- ???-???-???-???-???- Glucose FHR FuHt Pres Dilation -???-???-???-???-???-???-???- ???-???-???-???-???- Effaced St Visit Note 09/14/20 -???-???-???-???-???-???-???- ???-???-???-???-???- 9w 6d 154 lb (-16 oz) 140/82 -???-???-???-???-???-???-???- ???-???-???-???-???- 168 -???-???-???-???-???-???-???- ???-???-???-???-???- 09/28/20 -???-???-???-???-???-???-???- ???-???-???-???-???- 11w 6d 118/60 -???-???-???-???-???-???-???- ???-???-???-???-???- -???-???-???-???-???-???-???- ???-???-???-???-???- RN visit for BP check 10/12/20 -???-???-???-???-???-???-???- ???-???-???-???-???- 13w 6d 158 lb 6 oz (+3 lb 6 oz) 136/78 -???-???-???-???-???-???-???- ???-???-???-???-???- 160 -???-???-???-???-???-???-???- ???-???-???-???-???- GP - no cram ping or bleeding. PRR. Anatomy reviewed. 11/09/20 -???-???-???-???-???-???-???- ???-???-???-???-???- 17w 6d 168 lb (+13 lb) 138/68 Negative -???-???-???-???-???-???-???- ???-???-???-???-???- Negative 145 -???-???-???-???-???-???-???- ???-???-???-???-???- Sm- no vb cherie porter discussed chtn management ACOG First Trimester First Trimester: Desire for , Alcohol, Tobacco Cessation, Illicit/Recreational Drug/Substance Use, Intimate Partner Violence, Barriers to care, Unstable Housing, Communication Barriers, Environmental/Work Hazards, Anticipated Course of Care, Toxoplasmosis Precations, Use of Any medications, Sexual activity, Exercise, Dental Care, Sauna/Hot tub use, Seat Belt use, Childbirth classes/Hospital facilities, , Travel, Indications for US and Screening for Aneuploidy Diagnostics Diagnostics Diagnostics Blood Type B POSITIVE 09/28/20 Antibody Screen NEGATIVE 09/28/20 HIV 1 2 Antibody Non-Reactive (Nonreactive) 09/28/20 Rubella IgG Antibody Reactive (Nonreactive) 09/28/20 Hgb 12.6 g/dL (12.0-15.0) 09/28/20 Hct 37.1 % (37-47) 09/28/20 Chlamydia DNA (ADALBERTO) Negative (Negative) 09/14/20 N.gonorrhoeae DNA (ADALBERTO) Negative (Negative) 09/14/20 Details: HIV: Urine Culture: Sequential Screen: NIPT Screen: Results POC Urinalysis 2 Dip (Clinic) Office Urine Glucose Negative Last Edit by Barb Arriaza on 11/09/20 09:31 Office Urine Protein Negative Last Edit by Barb Arriaza on 11/09/20 09:31 Assessment Plan Problems 1. COVID-19 U07.1 Had all symptoms at 7 weeks. Antibody testing ordered at [facility]. 2. Abnormal EKG R94.31 sinus rhythm with right bundle branch block and PACs. 3. Abnormal renal ultrasound R93.429 05/2020: increased echotexture extending from the medulla to the cortex without increased or decreased vascularity. 4. Liver hemangioma D18.03 Noted on MRI scan 05/2020 5. Chronic hypertension affecting O10.919 On labetalol in last preg. No meds now. Baseline PreE labs. ASA at 12 weeks. Discussed testing and likely delivery at 38w. 6. Supervision of high risk , antepartum O09.90 PRR SUSANA 04/13/21 PC: Frank Spouse: Esdras 7. Z34.90 genetics- low risk, declines carrier Orders Orders: POC Urinalysis 2 Dip (Clinic) Today Coding Level of Care Code OB Routine Diagnoses COVID-19 U07.1 Abnormal EKG R94.31 Abnormal renal ultrasound R93.429 Liver hemangioma D18.03 Chronic hypertension affecting O10.919 Supervision of high risk , antepartum O09.90 Z34.90 11/09/20 0947 <Electronically signed by Melida Rutledge MD> Date Melida Rutledge MD Cosigner Signature: Date (if applicable) CC: Arcelia Huston CNP Work Phone: Start: 10-12-2020 End: 10-12-2020 Field Worker Office Visit Report Comments: See Note; NOTES: [facility] [address] [place] [address] OFFICE VISIT Date of Service: 10/12/20 MR#: [id number] Acct: [id number] Name: REGGIE MILLER Rep #: [id number] : 1995 Provider: Dr. Myla briceno MD Age/Sex: 25/F Location: [facility] [place] Status: Signed Intake Vital Signs 10/12/20 Height 5 ft 7 in 10/12/20 Weight: 158 lb 6 oz 10/12/20 BMI 24.7 10/12/20 BP 136/78 H Intake Visit Reasons: 14 WK OB Visualizer Required: No Is patient in pain?: No Allergies codeine Allergy (Intermediate, Verified 10/12/20 09:31) Nausea Sulfa (Sulfonamide Antibiotics) Allergy (Mild, Verified 10/12/20 09:31) Nausea Medications multivitamin no.47-iron fum 27 mg-folate no.1 1 mg-dha 300 mg capsule cap PO 09/04/20 [History Confirmed 10/12/20] Last Menstral Period: 07/07/20 Zika: Zika virus screening: Negative : No PFSH PFSH Medical History Liver hemangioma (Acute) Chronic hypertension (Chronic) Kidney infection (Resolved) Surgical History History of removal of cyst (Resolved 2013) Family History Mother Hyperlipidemia Father Hyperlipidemia Social History (Updated 10/12/20 @ 10:[address] 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 Date Name GA/Weeks Outcome Route Bth Weight Gen Labor Lgth Anesthesia Del Jabiermary Provider FOB 02/23/19 Calem 38 live - full term 8lbs 2oz Male 24 hours epidural [facility] Antonio Delivery Date: 02/23/19 IoL chronic hypertension; 1st degree laceration Yanique Blackburn HPI 14 WK OB: Details: REGGIE MILLER is a 25 year old who presents for routine OB visit. OB Visit SUSANA Calculator Estimated Delivery Date Method Current WG Current Estimate 04/13/21 LMP (Certain) 13w 6d Other Estimates 04/15/21 Ultrasound #1 13w 4d Expected Delivery Route/Plan Labor Preferences- CB/BF classes: [] labor support person: [] labor intervention preferences: [] pain management options preferred: [] cut cord/dad catch: [] : [] PP control planned: [] discussed possible routes of delivery and associated risks: [] special requests: [] Specific Issue/Plans flu vaccine: [] tdap vaccine: [] rhogam: [] LARC form signed: [] Problem list reviewed and updated with the most current plan of care details and appropriate orders placed. Relevant counseling for the gestational age provided. Continue routine care and follow up unless otherwise noted in visit notes/problem list details Initial Weight: Not Recorded Date -???-???-???-???-???-???-???- ???-???-???-???-???- EGA Weight BP Urine Prot -???-???-???-???-???-???-???- ???-???-???-???-???- Glucose FHR FuHt Pres Dilation -???-???-???-???-???-???-???- ???-???-???-???-???- Effaced St Visit Note 09/14/20 -???-???-???-???-???-???-???- ???-???-???-???-???- 9w 6d 154 lb 140/82 -???-???-???-???-???-???-???- ???-???-???-???-???- 168 -???-???-???-???-???-???-???- ???-???-???-???-???- 09/28/20 -???-???-???-???-???-???-???- ???-???-???-???-???- 11w 6d 118/60 -???-???-???-???-???-???-???- ???-???-???-???-???- -???-???-???-???-???-???-???- ???-???-???-???-???- RN visit for BP check 10/12/20 -???-???-???-???-???-???-???- ???-???-???-???-???- 13w 6d 158 lb 6 oz 136/78 -???-???-???-???-???-???-???- ???-???-???-???-???- 160 -???-???-???-???-???-???-???- ???-???-???-???-???- GP - no cram ping or bleeding. PRR. Anatomy reviewed. ACOG First Trimester First Trimester: Desire for , Alcohol, Tobacco Cessation, Illicit/Recreational Drug/Substance Use, Intimate Partner Violence, Barriers to care, Unstable Housing, Communication Barriers, Environmental/Work Hazards, Anticipated Course of Care, Toxoplasmosis Precations, Use of Any medications, Sexual activity, Exercise, Dental Care, Sauna/Hot tub use, Seat Belt use, Childbirth classes/Hospital facilities, , Travel, Indications for US and Screening for Aneuploidy Diagnostics Diagnostics Diagnostics Blood Type B POSITIVE 09/28/20 Antibody Screen NEGATIVE 09/28/20 HIV 1 2 Antibody Non-Reactive (Nonreactive) 09/28/20 Rubella IgG Antibody Reactive (Nonreactive) 09/28/20 Hgb 12.6 g/dL (12.0-15.0) 09/28/20 Hct 37.1 % (37-47) 09/28/20 Chlamydia DNA (ADALBERTO) Negative (Negative) 09/14/20 N.gonorrhoeae DNA (ADALBERTO) Negative (Negative) 09/14/20 Details: HIV: Urine Culture: Sequential Screen: NIPT Screen: ROS GI Denies heartburn, Denies nausea, Denies vomiting Denies abnormal vaginal bleeding, Denies painful urination, Denies pelvic pain, Denies vaginal discharge, Denies vaginal odor, Denies vaginal itching Exam Const General: cooperative, healthy appearing, comfortable, no acute distress, well developed, well groomed Nutritional Appearance: average body habitus, well nourished Orientation: alert, awake, oriented x3 HENMT Head: normal to inspection, normocephalic, atraumatic Eyes Pupils: PERRL, accommodation normal Resp Effort Inspection: normal respiratory effort, able to speak in complete sentences, symmetric chest movement Cardio Rate: regular rate GI Palpation: soft, no guarding, no masses, nontender Skin General: no rashes or lesions noted, elasticity normal, turgor normal Neuro General: alert, awake, oriented x3 Cranial Nerves: CN's II-XI intact bilaterally, sense of smell intact, PERRL, accommodation normal, EOM intact bilaterally Speech: speech normal Gait: normal gait Psych Appearance: grossly normal, well kempt Mental Status: mental status grossly normal Mood: congruent mood Affect: normal affect Speech and Movement: speech and movement normal Attitude: cooperative Thought Process: normal Thought Content: normal Judgment: judgment good Assessment Plan Problems 1. COVID-19 U07.1 Had all symptoms at 7 weeks. Antibody testing ordered at [facility]. 2. Abnormal EKG R94.31 sinus rhythm with right bundle branch block and PACs. 3. Abnormal renal ultrasound R93.429 05/2020: increased echotexture extending from the medulla to the cortex without increased or decreased vascularity. 4. Liver hemangioma D18.03 Noted on MRI scan 05/2020 5. Chronic hypertension affecting O10.919 On labetalol in last preg. No meds now. Baseline PreE labs. ASA at 12 weeks. Discussed testing and likely delivery at 38w. 6. Supervision of high risk , antepartum O09.90 SUSANA 04/13/21 PC: Frank Spouse: Esdras 7. 13 weeks gestation of Z3A.13 genetics- low risk, declines carrier Orders Orders: OB Anatomy Scan Today O09.90 Transvaginal w/Preg US Today O09.90 Coding Level of Care Code OB Routine Diagnoses COVID-19 U07.1 Abnormal EKG R94.31 Abnormal renal ultrasound R93.429 Liver hemangioma D18.03 Chronic hypertension affecting O10.919 Supervision of high risk , antepartum O09.90 13 weeks gestation of Z3A.13 ?Weeks of gestation: 13 weeks 10/12/20 1010 <Electronically signed by Myla Sousa MD> Date Myla Sousa MD Cosigner Signature: Date (if applicable) CC: Arcelia Huston [facility] Work Phone: Start: 09-28-2020 End: 09-28-2020 Field Worker Office Visit Report Comments: See Note; NOTES: [facility] [address] [place], [place] [address]. [address] [place], [place] [id number] OFFICE VISIT Date of Service: 09/28/20 MR#: [id number] Acct: [id number] Name: REGGIE MILLER Rep #: [id number] : 1995 Provider: Dr. Myla briceno MD Age/Sex: 25/F Location: [facility] [place] Status: Signed Intake Vital Signs 09/28/20 Height 5 ft 7 in 09/28/20 BP 118/60 Intake Visit Reasons: BP check Visualizer Required: No Is patient in pain?: No Allergies codeine Allergy (Intermediate, Verified 09/28/20 09:13) Nausea Sulfa (Sulfonamide Antibiotics) Allergy (Mild, Verified 09/28/20 09:13) Nausea Medications multivitamin no.47-iron fum 27 mg-folate no.1 1 mg-dha 300 mg capsule cap PO 09/04/20 [History Confirmed 09/28/20] Last Menstral Period: 07/07/20 Zika: Zika virus screening: Negative : No PFSH PFSH Medical History Liver hemangioma (Acute) Chronic hypertension (Chronic) Kidney infection (Resolved) Surgical History History of removal of cyst (Resolved 2013) Family History Mother Hyperlipidemia Father Hyperlipidemia Social History (Updated 09/28/20 @ 10:[address] 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 Date Name GA/Weeks Outcome Route Bth Weight Infant Gen Labor Lgth Anesthesia Del Locat Provider FOB 02/23/19 [place] 38 live - full term 8lbs 2oz Male 24 hours epidural [facility] Marcanthony Delivery Date: 02/23/19 IoL chronic hypertension; 1st degree laceration Yanique Blackburn HPI BP check: Details: REGGIE MILLER is a 25 year old who presents for routine OB visit. OB Visit SUSANA Calculator Estimated Delivery Date Method Current WG Current Estimate 04/13/21 LMP (Certain) 11w 6d Other Estimates 09/20/21 Ultrasound #1 11w 4d Expected Delivery Route/Plan Labor Preferences- CB/BF classes: [] labor support person: [] labor intervention preferences: [] pain management options preferred: [] cut cord/dad catch: [] : [] PP control planned: [] discussed possible routes of delivery and associated risks: [] special requests: [] Specific Issue/Plans flu vaccine: [] tdap vaccine: [] rhogam: [] LARC form signed: [] Problem list reviewed and updated with the most current plan of care details and appropriate orders placed. Relevant counseling for the gestational age provided. Continue routine care and follow up unless otherwise noted in visit notes/problem list details Initial Weight: Not Recorded Date -???-???-???-???-???-???-???- ???-???-???-???-???- EGA Weight BP Urine Prot -???-???-???-???-???-???-???- ???-???-???-???-???- Glucose FHR FuHt Pres Dilation -???-???-???-???-???-???-???- ???-???-???-???-???- Effaced St Visit Note 09/14/20 -???-???-???-???-???-???-???- ???-???-???-???-???- 9w 6d 154 lb 140/82 -???-???-???-???-???-???-???- ???-???-???-???-???- 168 -???-???-???-???-???-???-???- ???-???-???-???-???- 09/28/20 -???-???-???-???-???-???-???- ???-???-???-???-???- 11w 6d 118/60 -???-???-???-???-???-???-???- ???-???-???-???-???- -???-???-???-???-???-???-???- ???-???-???-???-???- RN visit for BP check ACOG First Trimester First Trimester: Desire for , Alcohol, Tobacco Cessation, Illicit/Recreational Drug/Substance Use, Intimate Partner Violence, Barriers to care, Unstable Housing, Communication Barriers, Environmental/Work Hazards, Anticipated Course of Care, Toxoplasmosis Precations, Use of Any medications, Sexual activity, Exercise, Dental Care, Sauna/Hot tub use, Seat Belt use, Childbirth classes/Hospital facilities, , Travel, Indications for US and Screening for Aneuploidy Diagnostics Diagnostics Diagnostics Blood Type Pending 09/28/20 Antibody Screen Pending 09/28/20 HIV 1 2 Antibody Pending 09/28/20 Rubella IgG Antibody Pending 09/28/20 Hgb 12.6 g/dL (12.0-15.0) 09/28/20 Hct 37.1 % (37-47) 09/28/20 Chlamydia DNA (ADALBERTO) Negative (Negative) 09/14/20 N.gonorrhoeae DNA (ADALBERTO) Negative (Negative) 09/14/20 Details: HIV: Urine Culture: Sequential Screen: NIPT Screen: Assessment Plan Problems 1. Abnormal EKG R94.31 sinus rhythm with right bundle branch block and PACs. 2. COVID-19 U07.1 Had all symptoms at 7 weeks. Antibody testing ordered at [facility]. 3. Abnormal renal ultrasound R93.429 05/2020: increased echotexture extending from the medulla to the cortex without increased or decreased vascularity. 4. Liver hemangioma D18.03 Noted on MRI scan 05/2020 5. Chronic hypertension affecting O10.919 On labetalol in last preg. No meds now. Baseline PreE labs. ASA at 12 weeks. Discussed testing and likely delivery at 38w. 6. Supervision of high risk , antepartum O09.90 SUSANA 04/13/21 PC: Frank Spouse: Esdras 7. Z34.90 desires genetics, declines carrier Orders Orders: POC Urinalysis 2 Dip (Clinic) Today Coding Level of Care Code OB Routine Diagnoses Abnormal EKG R94.31 COVID-19 U07.1 Abnormal renal ultrasound R93.429 Liver hemangioma D18.03 Chronic hypertension affecting O10.919 Supervision of high risk , antepartum O09.90 Z34.90 09/28/20 1058 <Electronically signed by Myla Sousa MD> Date Myla Sousa MD Cosigner Signature: Date (if applicable) CC: Arcelia Huston [employer] Work Phone: Start: 09-14-2020 End: 09-14-2020 Field Worker Office Visit Report Comments: See Note; NOTES: [facility] [address] [place] [address]. [address] [place] [address] OFFICE VISIT Date of Service: 09/14/20 MR#: [id number] Acct: [id number] Name: REGGIE MILLER Rep #: [id number] : 1995 Provider: Dr. Myla briceno MD Age/Sex: 25/F Location: [facility] [place] Status: Signed Intake Vital Signs 09/14/20 Height 5 ft 7 in 09/14/20 Weight: 154 lb 09/14/20 BP 140/82 H Intake Visit Reasons: NOB LMP 07/07, pt req for a FRI Visualizer Required: No Is patient in pain?: No Allergies codeine Allergy (Intermediate, Verified 09/14/20 09:53) Nausea Sulfa (Sulfonamide Antibiotics) Allergy (Mild, Verified 09/14/20 09:53) Nausea Medications multivitamin no.47-iron fum 27 mg-folate no.1 1 mg-dha 300 mg capsule cap PO 09/04/20 [History Confirmed 09/14/20] Last Menstral Period: 07/07/20 Zika: Zika virus screening: Negative : No PFSH PFSH Medical History Liver hemangioma (Acute) Chronic hypertension (Chronic) Kidney infection (Resolved) Surgical History History of removal of cyst (Resolved 2013) Family History Mother Hyperlipidemia Father Hyperlipidemia Social History (Updated 09/14/20 @ 10:[address] 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 Date Name GA/Weeks Outcome Route Bth Weight Infant Gen Labor Lgth Anesthesia [facility] Provider FOB 02/23/19 Calem 38 live - full term 8lbs 2oz Male 24 hours epidural WC Marcanthony Delivery Date: 02/23/19 IoL chronic hypertension; 1st degree laceration Yanique Blackburn HPI NOB LMP /, pt req for a FRI: Details: REGGIE MILLER is a 25 year old who presents for New OB visit. OB Visit SUSANA Calculator Estimated Delivery Date Method Current WG Current Estimate 04/13/21 LMP (Certain) 9w 6d Other Estimates 04/15/21 Ultrasound #1 9w 4d Estimated Due Date: 04/13/21 Expected Delivery Route/Plan Labor Preferences- CB/BF classes: [] labor support person: [] labor intervention preferences: [] pain management options preferred: [] cut cord/dad catch: [] : [] PP control planned: [] discussed possible routes of delivery and associated risks: [] special requests: [] Specific Issue/Plans flu vaccine: [] tdap vaccine: [] rhogam: [] LARC form signed: [] Problem list reviewed and updated with the most current plan of care details and appropriate orders placed. Relevant counseling for the gestational age provided. Continue routine care and follow up unless otherwise noted in visit notes/problem list details Initial Weight: Not Recorded Date -???-???-???-???-???-???-???- ???-???-???-???-???- EGA Weight BP Urine Prot -???-???-???-???-???-???-???- ???-???-???-???-???- Glucose FHR FuHt Pres Dilation -???-???-???-???-???-???-???- ???-???-???-???-???- Effaced St Visit Note 09/14/20 -???-???-???-???-???-???-???- ???-???-???-???-???- 9w 6d 154 lb 140/82 -???-???-???-???-???-???-???- ???-???-???-???-???- 168 -???-???-???-???-???-???-???- ???-???-???-???-???- Menstrual History Last Menstral Period: 07/07/20 Antepartum Record Genetic Screening: Congenital Heart Defect: Other, Neural Tube Defect: Other, Hemoglobinopathy Or Carrier: Other, Cystic Fibrosis: Other, Chromosome Abnormality: Other, Aguilar-Sachs: Other, Hemophilia: Other, Intellectual Disability/Autism: Other, Recurrent Loss/Stillbirth: Other, Other Structural Defect: Other, Other Genetic Disease: Other, Maternal Metabolic Disorder: Other Infection History: Live with someone with TB or Exposed to TB: No, Patient or Partner has history of Genital Herpes: No, Rash or Viral illness since last mentrual period: No, Prior GBS-Infected child: No, History of STD: No, HIV Infection: No, History of Hepatitis: No, Recent travel outside of [place]: No, Concern for Hep exposure: No, Varicella immune: Yes Medical History Medical History: Positive: Hypertension (GHTN), Negative: Diabetes, Heart disease, Auto-immune disorder, Kidney disease/UTI, Neurologic/epilepsy, Psychiatric, Depression/ depression, Hepatitis/liver disease, Varicosities/phlebitis, Thyroid dysfunction, Trauma/domestic violence, History of blood transfusions, D (Rh) Sensitized, Pulmonary (e.g.,TB,Asthma), Seasonal allergies, Drug/latex allergies/reactions, Breast, Clothing Sales Assistant surgery, Operations/hospitalizations, Anesthetic complications, History of abnormal pap, Uterine anomaly/anabell, Infertility, Anti-retroviral treatment, Relevant family history, Other ACOG First Trimester First Trimester: Desire for , Alcohol, Tobacco Cessation, Illicit/Recreational Drug/Substance Use, Intimate Partner Violence, Barriers to care, Unstable Housing, Communication Barriers, Environmental/Work Hazards, Anticipated Course of Care, Nurtrition and weight gain, Toxoplasmosis Precations, Use of Any medications, Sexual activity, Exercise, Dental Care, Sauna/Hot tub use, Seat Belt use, Childbirth classes/Hospital facilities, , Travel, Indications for [place] and Screening for Aneuploidy ROS Const Reports fatigue, Denies fever(s), Reports increased appetite, Reports weight gain Card Denies chest pain, Denies shortness of breath Resp Denies shortness of breath GI Denies constipation, Reports heartburn, Reports nausea, Reports vomiting Denies abnormal vaginal bleeding, Denies painful urination, Denies nipple discharge, Denies pelvic pain, Denies vaginal discharge, Denies vaginal odor, Denies vaginal itching Skin/Breast Reports breast pain, Reports breast swelling, Denies nipple discharge Psych Denies anxiety, Denies depression Endo Reports fatigue Exam Const General: cooperative, healthy appearing, comfortable, no acute distress, well developed, well groomed Nutritional Appearance: average body habitus, well nourished Orientation: alert, awake, oriented x3 HENMT Head: normal to inspection, not normocephalic, signs of trauma Eyes Pupils: PERRL, accommodation normal EOM: EOM intact bilaterally Resp Effort Inspection: normal respiratory effort, able to speak in complete sentences, symmetric chest movement Cardio Rate: regular rate GI Palpation: soft, no guarding, no masses, nontender Skin General: no rashes or lesions noted, elasticity normal, turgor normal Neuro General: alert, awake, oriented x3 Cranial Nerves: CN's II-XI intact bilaterally, sense of smell intact, PERRL, accommodation normal, EOM intact bilaterally Speech: speech normal Gait: normal gait Psych Appearance: grossly normal, well kempt Mental Status: mental status grossly normal Affect: normal affect Speech and Movement: speech and movement normal Attitude: cooperative Thought Process: normal Thought Content: normal Judgment: judgment good Assessment Plan Problems 1. Abnormal EKG R94.31 sinus rhythm with right bundle branch block and PACs. 2. Abnormal renal ultrasound R93.429 05/2020: increased echotexture extending from the medulla to the cortex without increased or decreased vascularity. 3. Liver hemangioma D18.03 Noted on MRI scan 05/2020 4. Chronic hypertension affecting O10.919 On labetalol in last preg. No meds now. Baseline PreE labs. ASA at 12 weeks. Discussed testing and likely delivery at 38w. 5. Supervision of high risk , antepartum O09.90 SUSANA 04/13/21 PC: Frank Spouse: Esdras 6. 9 weeks gestation of Z3A.09 desires genetics, declines carrier 7. COVID-19 U07.1 Had all symptoms at 7 weeks. Antibody testing ordered at NOB. Plan Patient oriented to practice and discussed care expectations and screenings. ACOG book offered to patient. Discussed routine and specially indicated labs if needed- patient consents to testing. see problem list details for plan information. Optional screening including carrier screenings, neural tube defect screening, sequential screening, and NIPT screening offered to patient and patient chose: NIPT Orders Orders: Antibody Screen Today O09.90 Type Screen Today O09.90 Hepatitis B Surface Antigen Today O09.90 Hepatitis C Antibody Today O09.90 HIV - [facility] Today O09.90 Rubella IgG Today O09.90 CBC W/Diff, Automated Today O09.90 Culture, Urine Today O09.90 Rapid Plasmin Reagin (RPR) Today O09.90 Urine Drug Screen ([facility]IST[facility]) Today O09.90 Comprehensive Metabolic Profil Today O10.919 Protein+Creatinine Ratio,Urine Today O10.919 Coding Level of Care Code OB Routine Diagnoses Abnormal EKG R94.31 Abnormal renal ultrasound R93.429 Liver hemangioma D18.03 Chronic hypertension affecting O10.919 Supervision of high risk , antepartum O09.90 9 weeks gestation of Z3A.09 ?Weeks of gestation: 9 weeks COVID-19 U07.1 09/14/20 1049 <Electronically signed by Myla Sousa MD> Date Myla Sousa MD Cosigner Signature: Date (if applicable) CC: Arcelia Huston RADIATION MONITOR Work Phone: Start: 06-08-2020 End: 06-08-2020 MRI Abd WITH and W/O Contrast Comments: See Note; NOTES: [facility] Imaging Services [address] [place] [address] MRI Abd WITH and W/O Contrast MR#: [id number] Acct: [id number] Name: REGGIE MILLER Rep #: [id number] : 1995 F 25 From: Juventino Isaac MD PCP: Dr. Reina Aguirre, DO Status: REG CLI Study: MRI Abd WITH and W/O Contrast Date of Exam: Exam# [id number] Ordering Dr: Arcelia Huston DEVELOPMENT ASSISTANT DEVELOPMENT ASSISTANT-C STUDY: MRI ABDOMEN WITH AND WITHOUT CONTRAST REASON FOR EXAM: Female, 25 years old. LEFT renal mass, H/O l KIDNEY INFECTION 1 MONTH AGO PAIN SINCE TECHNIQUE: Standardized fat and water weighted pulse sequences were obtained in all 3 orthogonal planes post contrast administration. IV 14cc dotarem was administered for the contrast portion of the examination. COMPARISON: CT 05/06/2020, ultrasound 05/28/2020 FINDINGS: Tiny bilateral pleural effusions. The visualized portions of the heart are within normal limits. 1 cm T2 hyperintense mass of the subcapsular posterior segment the right lobe of the liver demonstrates peripheral globular enhancement consistent with a hemangioma. Normal gallbladder and extrahepatic biliary system. Normal spleen. Normal pancreas. Normal bilateral adrenal glands. Normal right kidney. Again noted is an oval area of relatively decreased contrast enhancement within the lateral cortex of the upper pole of the left kidney. However, the area does not appear as prominent measuring 2 cm which measured [address] Furthermore, the degree of the enhancement change is fairly subtle. This is felt to likely represent resolving focal pyelonephritis. Normal visualized stomach. Normal small intestine. Normal colon. There is non-visualization of the appendix. Normal abdominal aorta. Normal inferior vena cava. Normal retroperitoneum. Normal abdominal wall. Normal osseous structures. MRI/MRI Abd WITH and W/O Contrast IMPRESSION: 1. Decreased size and conspicuity of the area of decreased enhancement within the lateral aspect of the upper pole the left kidney suggestive of a resolving focal pyelonephritis. Follow-up of a renal protocol CT is recommended in 4 weeks to further document resolution and compared with the prior CT from 05/06/2020. 2. MRI confirms a 1 cm hemangioma the subcapsular posterior segment the right lobe of the liver. Electronically Signed: Juventino Isaac MD at 12:43 EST Tel , Service support , CC: CARLOS Huston; Dr. Reina Aguirre DO Commercial Loan Manager: Signed Arcelia Huston Work Phone: Start: 05-28-2020 End: 05-29-2020 Kidney and Bladder Comments: See Note; NOTES: [facility] Imaging Services [address] [place] [address] Kidney and Bladder MR#: [id number] Acct: [id number] Name: REGGIE MILLER Rep #: [id number] : 1995 F 25 From: Zaynab Mackay MD PCP: Dr. Reina Aguirre DO Status: REG CLI Study: Kidney and Bladder Date of Exam: 05/28/20 Exam# [id number] Ordering Dr: Janine Zacarias DO STUDY: RENAL ULTRASOUND - COMPLETE REASON FOR EXAM: Female, 25 years old. Lt renal mass TECHNIQUE: Ultrasound evaluation of the kidneys was performed with real-time and static castillo-scale imaging. COMPARISON: CT abdomen and pelvis 05/06/2020. FINDINGS: RIGHT KIDNEY: Normal location of the right kidney, which is normal in size. The right kidney measures 10 x 5.5 x 4.2 cm. There is a normal cortex of the right kidney. The renal cortex measures 1.6 cm. There is no right renal mass or cyst. There are no right renal calculi. There is no right hydronephrosis. DISTAL RIGHT URETER: There is non-visualization of the distal right ureter. There is no demonstrated right ureterovesical junction calculus. There is a visualized right ureteral jet. LEFT KIDNEY: Normal location of the left kidney, which is normal in size. The left kidney measures 10.5 x 5.5 x 4.5 cm. There is a normal cortex of the left kidney. The renal cortex measures 1.6 cm. The left upper renal pole contains indistinct slightly increased echogenicity extending from the medulla into the cortex . There is no focal defined left renal mass or cyst. There is no increased or decreased vascularity at this level. There are no left renal calculi. There is no left hydronephrosis. DISTAL LEFT URETER: There is non-visualization of the distal left ureter. There is no demonstrated left ureterovesical junction calculus. There is a visualized left ureteral jet. BLADDER: The distended urinary bladder has a volume of 603.5 ml. There is minimal debris within the urinary bladder. There is a normal wall thickness of the distended urinary bladder. There is no demonstrated mass within the urinary bladder. There are no demonstrated bladder calculi. US/Kidney and Bladder IMPRESSION: No defined cystic or solid mass within the left upper renal pole detected, there is however increased echotexture extending from the medulla to the cortex without increased or decreased vascularity. As there is no defined mass detected, this may be due to resolved inflammatory change. Consider MRI examination for better detail and to exclude underlying pathology. Electronically Signed: Zaynab Mackay MD at 6:53 EST , Service support , CC: Dr. Reina Aguirre DO; Dr. Janine Zacarias DO Commercial Loan Manager: Signed Janine Zacarias Work Phone: Start: 05-06-2020 End: 05-06-2020 Emergency Department Summary Comments: See Note; NOTES: [facility] Medical Records Department [address] [place] [id number] Emergency Department Summary 05/06/20 MR#: [id number] Acct: [id number] Name: REGGIE MILLER Rep #: [id number] : 1995 25 From: Zac SOTELO PCP: Dr. Reina Aguirre DO Status:DEP ER History of Present Illness Informant: Patient, Significant Other - Abdominal Pain/Flank Pain Onset: Yesterday Context: Gradual Onset Timing: Continuous Quality: Cramping, Sharp Location: LUQ, LLQ Current Severity: Moderate Maximum Severity: Severe Worsened by: Food, Movement Relieved by: Nothing - Nausea/Vomiting/Emesis GI Symptom: Nausea. Negative for: Vomiting Onset: Today - Diarrhea/Melena/Hematochezia GI Symptom: Negative for: Diarrhea, Melena, Hematochezia Associated Symptoms: Negative for: Dysuria, Frequency, Hematuria, Urgency Narrative: 45-year-old female who denies any significant past medical history presents to the emergency department with fever and abdominal pain. Today is her third day of a fever. Maximum temperature 104 ???F orally. She went to the urgent care yesterday. They sent off a test for coronavirus which is pending. She woke up in the middle the night this morning early with left upper quadrant and left lower quadrant abdominal pain that is progressively worsened. She has had nausea but no vomiting. No diarrhea melena or hematochezia. No vaginal bleeding or discharge. No urinary symptoms. No chest pain or shortness of breath. She is not lightheaded or dizzy. No rash. No trauma. No back pain. Denies any history of similar symptoms denies sick contacts no contacts with anyone with coronavirus no recent travel. Prior similar symptoms: No Recent Illness/Hospitalization: No <Zac Gillespie - Last Filed: 05/06/20 12:37> <Januayr Torres - Last Filed: 05/06/20 16:30> Chief Complaint: Abd Pain Past Medical History Prior records reviewed: Yes Past Medical History: None Surgical History: no surgical history Lives: With Family Smoking Status: Never smoker Alcohol: Occasional Drugs: None <Zac Gillespie - Last Filed: 05/06/20 12:37> <January Torres - Last Filed: 05/06/20 16:30> - Allergies and Home Meds Allergies/Adverse Reactions: Allergies codeine Allergy (Intermediate, Verified 05/06/20 09:47) Nausea as a child Sulfa (Sulfonamide Antibiotics) Allergy (Mild, Verified 05/06/20 09:47) Nausea Primary Care Physician: Reina Aguirre DO [Primary Care Provider] - 5-7 Days Review of Systems All systems negative except as indicated General: Reports: Chills, Fever. Denies: Sweats Eyes: Denies: Visual changes - bilaterally, Diplopia ENT: Denies: Rhinorrhea, Sore throat Cardiovascular: Denies: Chest pain, Palpitations, Heart racing Respiratory: Denies: Dyspnea, Cough, Sputum, Dyspnea on exertion, Orthopnea, Paroxysmal nocturnal dyspnea Gastrointestinal: Reports: Abdominal pain, Nausea. Denies: Vomiting, Diarrhea, Constipation, Melena, Hematochezia Genitourinary: Denies: Dysuria, Hematuria, Frequency Musculoskeletal: Denies: Myalgias, Arthralgias, Neck pain, Back pain, Swelling, Extremity Pain Skin: Denies: Rash, Abscess, Abrasions, Wounds Neurological: Denies: Headache, Weakness, Parasthesia, Numbness <Zac Gillespie - Last Filed: 05/06/20 12:37> Physical Exam Vital Signs/Narrative: Vital Signs Temp Pulse Resp BP Pulse Ox 05/06/20 09:48 99.4 F H 114 H 17 109/72 98 Inital Vital Signs reviewed: Yes General: Well nourished, Well developed, No Acute Distress Head: Normocephalic, Atraumatic Eyes: Perrl, EOMI ENT: Moist mucous membranes, No rhinorrhea Neck: Supple, Nontender Cardiovascular: Regular rate, Regular rhythm, No murmurs Respiratory: No distress, CTA bilaterally, Chest nontender Abdomen: Soft, Nondistended, Normal bowel sounds, Tender. Negative for: Guarding, Rebound tenderness, Ventral hernia, Umbilical hernia, Psoas sign, Obturator sign, Rovsig's sign, Willard's sign Back: Nontender, Normal Inspection. Negative for: CVA tenderness, Spinal tenderness Extremities: Nontender, No edema. Negative for: Tenderness, Edema, Calf Tenderness Skin: Normal color, No rash Neurological: Alert, Oriented x3, Cranial nerves II-XII grossly intact, Normal Strength, Normal Sensation, Normal Gait Psychological: Normal affect, Normal Mood <Zac Gillespie - Last Filed: 05/06/20 12:37> Vital Signs/Narrative: Vital Signs Temp Pulse Resp BP Pulse Ox 05/06/20 13:00 99 F 89 18 123/80 H 05/06/20 12:30 98.3 F 84 18 124/68 H 100 <January Torres - Last Filed: 05/06/20 16:30> Diagnostic/Tx/Re-eval CT: Abdomen and Pelvis Impressions Abdomen/Pelvis CT 05/06/20 10:01 IMPRESSION: 1. Inhomogeneity of the left upper pole renal enhancement in a pattern suspicious for pyelonephritis. Correlate clinically. If no evidence for pyelonephritis, then further workup of this area measuring 2.5 x 3.0 x 3.4 cm as a complex mass is recommended. 2. Mild splenomegaly. 3. Posterior right hepatic lobe 1.1 cm benign lesion, most likely representing hemangioma. No further workup is warranted. 4. Trace cul-de-sac free fluid, likely physiologic in nature. 5. The appendix is not visualized, no secondary signs of appendicitis. Individualized dose optimization techniques were used for this CT. at 1215 Reported and signed by: Rusty Cam MD Electronically Signed: Rusty Cam MD at 12:14 EDT Tel , Service support , 05/06/20 10:01 CT Abd [Abdomen/Pelvis W IV Cont ONLY] [CT] Stat Laboratory Results 05/06/20 05/06/20 05/06/20 10:20 10:20 10:20 WBC 11.9 H RBC 4.63 Hgb 13.0 Hct 40.3 MCV 87.0 MCH 28.1 MCHC 32.3 RDW Std Deviation 41.7 RDW Coeff of Cecy 12.9 Plt Count 169 MPV 12.7 H Immature Gran % (Auto) 0.300 Neut % (Auto) 76.1 H Lymph % (Auto) 10.5 L Weld % (Auto) 12.7 H Eos % (Auto) 0.1 Baso % (Auto) 0.3 Absolute Neuts (auto) 9.1 H Absolute Lymphs (auto) 1.25 Nucleated RBC % 0 Differential Comment SCANNED Diff Path Review November foll PT 14.1 INR 1.1 Sodium 138 Potassium 3.7 Chloride 106 Carbon Dioxide 26.0 Anion Gap 6 BUN 9 Creatinine 0.94 Estim Creat Clear Calc 88.97 Est GFR (MDRD) Af Amer 93 Est GFR (MDRD) Non-Af 77 BUN/Creatinine Ratio 9.6 L Glucose 125 H Lactic Acid Calcium 9.0 Total Bilirubin 0.90 AST 19 ALT 37 Alkaline Phosphatase 76 Total Protein 8.1 Albumin 3.8 Globulin 4.3 H Albumin/Globulin Ratio 0.9 Lipase 137 Serum , Qual Urine Color Urine Clarity Urine pH Ur Specific Helotes Urine Protein Urine Glucose (UA) Urine Ketones Urine Occult Blood Urine Nitrite Urine Bilirubin Urine Urobilinogen Ur Leukocyte Esterase Urine RBC Urine WBC Ur Squamous Epith Cells Urine Bacteria Urine Mucus 05/06/20 05/06/20 05/06/20 10:20 10:25 11:15 WBC RBC Hgb Hct MCV MCH MCHC RDW Std Deviation RDW Coeff of Cecy Plt Count MPV Immature Gran % (Auto) Neut % (Auto) Lymph % (Auto) Weld % (Auto) Eos % (Auto) Baso % (Auto) Absolute Neuts (auto) Absolute Lymphs (auto) Nucleated RBC % Differential Comment Diff Path Review PT INR Sodium Potassium Chloride Carbon Dioxide Anion Gap BUN Creatinine Estim Creat Clear Calc Est GFR (MDRD) Af Amer Est GFR (MDRD) Non-Af BUN/Creatinine Ratio Glucose Lactic Acid 1.2 Calcium Total Bilirubin AST ALT Alkaline Phosphatase Total Protein Albumin Globulin Albumin/Globulin Ratio Lipase Serum , Qual NEGATIVE Urine Color Yellow Urine Clarity Clear Urine pH 7.0 Ur Specific Helotes 1.005 Urine Protein Negative Urine Glucose (UA) Normal Urine Ketones Negative Urine Occult Blood 10 H Urine Nitrite Negative Urine Bilirubin Negative Urine Urobilinogen Normal Ur Leukocyte Esterase 500 H Urine RBC 0 SEEN Urine WBC 0-5 SEEN Ur Squamous Epith Cells 0 SEEN Urine Bacteria 2+ Urine Mucus 0 SEEN - Medical Decision Making Patient presents with left-sided abdominal pain and fever. Sepsis work-up was pursued. She was given Toradol for pain and fever. She was given IV fluids. CBC CMP remarkable for a white blood cell count of just over 11. Lipase is negative. Urinalysis is consistent with urinary tract infection. Lactic acid is negative. CT scan abdomen and pelvis demonstrates Inhomogeneity of the left upper pole renal enhancement in a pattern suspicious for pyelonephritis. Correlate clinically. If no evidence for pyelonephritis, then further workup of this area measuring 2.5 x 3.0 x 3.4 cm as a complex mass is recommended. On repeat exam patient's heart rate is improved she is afebrile her abdomen is soft and nontender she is able to tolerate by mouth. Advised patient of findings of CT scan. We will treat her for pyelonephritis. She was advised to follow-up closely with her primary care physician for further management of this possible mass on her kidney. She is agreeable with plan and all questions answered. First dose of antibiotic was given in the emergency department. She will be placed on ciprofloxacin to treat for pyelonephritis. <Zac Gillespie - Last Filed: 05/06/20 12:37> - Medical Decision Making I have personally performed a [id number] assessment of the patient and have reviewed the PA note. 25-year-old female presenting with left-sided abdominal pain and fever. Vitals are stable. She has left upper quadrant tenderness with no guarding or rebound. Labs, UA, CT are reviewed. Patient feels improved and will follow up with her primary care physician. Advised return to ED for worsening complaints. <January Torres - Last Filed: 05/06/20 16:30> ED Disposition <Zac Gillespie - Last Filed: 05/06/20 12:37> <January Torres - Last Filed: 05/06/20 16:30> - Plan for ED Patient: Disposition: Home or Assisted Living Diagnosis: Pyelonephritis, Sepsis Instructions: ED Pyelonephritis Female Adult Prescriptions: Ciprofloxacin [Cipro] 500 mg PO BID #28 tab Transmission Status: Received by [facility]/pharmacy #[id number] Referrals: Reina Aguirre DO [Primary Care Provider] - 5-7 Days What to do if you have Problems For any increased pain, shortness of breath, bleeding, nausea or vomiting, chest pain, or any unexpected problems, contact your Primary Care Provider. Call [facility] ([phone]) or report to the closest Emergency Room. Call 911 if necessary. 05/06/20 1241 <Electronically signed by Zac SOTELO> Date Zac SOTELO 05/06/20 1630<Electronically signed by January Torres MD> Cosigner Signature (If Indicated): Date January Torres MD CC: Dr. Reina Aguirre DO Arcelia Huston Start: 05-06-2020 End: 05-06-2020 Abdomen/Pelvis W IV Cont ONLY Comments: See Note; NOTES: [facility] Imaging Services [address] [place] [address] Abdomen/Pelvis W IV Cont ONLY MR#: [id number] Acct: [id number] Name: REGGIE MILLER Rep #: [id number] : 1995 F 25 From: Rusty jensen MD PCP: Dr. Reina Fast, DO Status: REG ER Study: Abdomen/Pelvis W IV Cont ONLY Date of Exam: Exam# [id number] Ordering Dr: Zac Gillespie HISTORY: RUQ PAIN, ELEV WBC, NAUSEA, FEVER, PENDING COVID TEST COMPARISON: Right upper quadrant ultrasound 03/23/2019 TECHNIQUE: Helical CT axial images from the lung bases to the pubic symphysis with 100mL Isovue-370 intravenous contrast. Multiplanar reconstruction. No oral contrast was administered. A radiation dose optimization technique was used for this scan. # of images incl. paperwork: [id number] FINDINGS: LUNG BASES: No basilar consolidation or effusions. LIVER: Normal in size and attenuation. Posterior right hepatic lobe benign-appearing lesion measuring 1.1 cm likely representing hemangioma, this lesion demonstrates partial filling-and on delayed phase imaging. No suspicious hepatic masses. HEPATOBILIARY: Normal-appearing gallbladder. No intra- or extrahepatic ductal dilatation. SPLEEN: Mild splenomegaly measuring up to 13.5 cm. PANCREAS: Normal size and contour. No focal mass. ADRENAL GLANDS: Normal size. No adrenal masses. KIDNEYS: Moderate sized area of left upper pole decreased attenuation compared to the remainder of the left renal parenchyma which may worsen pyelonephritis versus complex mass measuring 2.5 x 3.0 x 3.4 cm in greatest TV/AP/CC dimensions. No obstructing calculi or hydronephrosis bilaterally. No nephrolithiasis. No significant cysts are present. Normal ureters bilaterally without calculi or hydroureter. BOWEL MESENTERY: No small or large bowel dilatation. No colonic diverticulosis. The appendix is not visualized, no secondary signs of appendicitis. No abnormal mesenteric lymphadenopathy. No pneumoperitoneum. RETROPERITONEUM:Normal caliber abdominal aorta without aneurysm. No abnormal retroperitoneal lymphadenopathy. PELVIS:Urinary bladder is suboptimally distended. Small amount of cul-de-sac free fluid. Uterus and adnexal structures are unremarkable. ABDOMINAL WALL: The abdominal wall is intact. BONES: No suspicious osseous lytic or blastic lesions seen. CT/Abdomen/Pelvis W IV Cont ONLY IMPRESSION: 1. Inhomogeneity of the left upper pole renal enhancement in a pattern suspicious for pyelonephritis. Correlate clinically. If no evidence for pyelonephritis, then further workup of this area measuring 2.5 x 3.0 x 3.4 cm as a complex mass is recommended. 2. Mild splenomegaly. 3. Posterior right hepatic lobe 1.1 cm benign lesion, most likely representing hemangioma. No further workup is warranted. 4. Trace cul-de-sac free fluid, likely physiologic in nature. 5. The appendix is not visualized, no secondary signs of appendicitis. Individualized dose optimization techniques were used for this CT. at 1215 Reported and signed by: Rusty Cam MD Electronically Signed: Rsuty Cam MD at 12:14 EDT Tel , Service support , CC: ASHLEIGH Gillespie; Dr. Reina Aguirre DO Commercial Loan Manager: Signed Arcelia Huston Start: 03-23-2019 End: 03-23-2019 Liver Comments: See Note; NOTES: [facility] Imaging Services [address] [place] [address] Liver MR#: [id number] Acct: [id number] Name: REGGIE MILLER Rep #: [id number] : 1995 F 24 From: Markie Cruz MD PCP: Yudy Agee Status: REG CLI Study: Liver Date of Exam: 03/23/19 Exam# [id number] Ordering Dr: Arcelia Huston DEVELOPMENT ASSISTANT-C STUDY: ABDOMINAL ULTRASOUND - RIGHT UPPER QUADRANT REASON FOR VISIT: Female, 24 years old. Elevated liver enzymes 4 weeks . History of high blood pressure during . TECHNIQUE: Ultrasound evaluation of the right upper quadrant was performed with real-time and static hardin-scale imaging. TECHNICAL QUALITY: Adequate. COMPARISON: None. FINDINGS: Liver: The liver measures 15.4 cm. There is normal echogenicity of the liver. The bile ducts are within normal limits. There is hepatic color flow. The direction of portal flow is hepatopetal. There is no demonstrated mass lesion. Gallbladder: Normal distended gallbladder. The gallbladder wall measures 2.2 mm. There is a negative sonographic Willard's sign. There is no pericholecystic fluid. There are no gallstones. Common Bile Duct (C.B.D.): The common bile duct measures 3.0 mm. Pancreas: Normal size of the head, body and tail of the pancreas. There is normal echogenicity of the pancreas. There is no demonstrated pancreatic mass or cyst. Right Kidney: Normal size of the right kidney. The right kidney measures 10.2 x 6.2 x 4.3 cm. Normal renal cortex. The right cortex measures 1.2 cm. There is no demonstrated renal mass or cyst. There is no right hydronephrosis. US/Liver IMPRESSION: Normal right upper quadrant ultrasound examination. Electronically Signed: Michael Cruz MD at 17:00 EDT , Service support , CC: CARLOS Huston; Yudy Agee Commercial Loan Manager: Signed Arcelia Huston Work Phone: Plan of Treatment Date Care Activity Detail Author Start: 06-15-2020 Provider Instructions for Treatment [facility] Work Phone: Start: 05-25-2020 Procedure Education Eprescribed prescriptions (G8553) [facility] Work Phone: Start: 05-25-2020 Provider Instructions for Treatment [facility] Work Phone: Start: 05-25-2020 Culture bct isol&prsmptv id isolate ea urine URINE MALDONADO CULTURE-IDENTIFICATN (43480) [facility] Work Phone: Start: 05-25-2020 Blood count complete automated CBC & PLATELETS (AUTO) ([id number]) [facility] Work Phone: Start: 12-30-2019 Procedure Education Eprescribed prescriptions (G8553) [facility] Work Phone: Start: 12-30-2019 Provider Instructions for Treatment [facility] Work Phone: Start: 06-06-2019 Assay of free thyroxine T4, FREE (THYROXINE) (68257) [facility]; [facility] Work Phone: Start: 06-06-2019 Free T4 [Mass/Vol] T4, FREE (THYROXINE) (05865) [facility] Work Phone: Start: 06-06-2019 Assay of triiodothyronine t3 free T3, FREE (TRIDOTHYRONINE) (55777) [facility]; [facility] Work Phone: Start: 06-06-2019 Free T3 [Mass/Vol] T3, FREE (TRIDOTHYRONINE) (58163) [facility] Work Phone: Start: 06-06-2019 Assay of thyroid stimulating hormone tsh TSH (86814) [facility]; [facility] Work Phone: Start: 06-06-2019 TSH Qn TSH (39908) [facility] Work Phone: Start: 06-06-2019 Urine albumin quantitative MICROALBUMIN: CREATININE RATIO (43596) AND (68942) [facility] Work Phone: Start: 06-06-2019 Procedure Education Eprescribed prescriptions (G9524) [facility] Work Phone: Start: 06-06-2019 Provider Instructions for Treatment Follow up in 6 months [facility] Work Phone: Start: 03-29-2019 Comprehensive metabolic panel METABOLIC PANEL, COMPREHENSIVE (44454) [facility] Work Phone: Start: 03-18-2019 AST [Catalytic activity/Vol] AST (SGOT) (ASPART AMINO TRANSFERASE) (32201) [facility] Work Phone: Start: 03-18-2019 Transferase aspartate amino ast sgot AST (SGOT) (ASPART AMINO TRANSFERASE) (13216) [facility]; [facility] Work Phone: Start: 03-18-2019 ALT [Catalytic activity/Vol] ALT (SGPT) (ALANINE AMINO TRANSFERASE) (89489) [facility] Work Phone: Start: 03-18-2019 Transferase alanine amino alt sgpt ALT (SGPT) (ALANINE AMINO TRANSFERASE) (76116) [facility]; [facility] Work Phone: Start: 03-18-2019 Urinls dip stick/tablet reagnt non-auto micrscpy URINALYSIS W MICROSCOPY (00925) [facility] Work Phone: Start: 03-18-2019 Alpha-fetoprotein serum [id number] (34062) [facility] Work Phone: Start: 03-18-2019 Acute hepatitis panel HEPATITIS PANEL (91263) [facility] Work Phone: Start: 03-16-2019 Procedure Education Eprescribed prescriptions (G8553) [facility] Work Phone: Start: 03-16-2019 Provider Instructions for Treatment [facility] Work Phone: Start: 03-16-2019 Culture bct isol&prsmptv id isolate ea urine URINE MALDONADO CULTURE-IDENTIFICATN (34784) [facility] Work Phone: Start: 03-16-2019 Comprehensive metabolic panel Metabolic Panel, Comprehensive (32946) [facility] Work Phone: Start: 03-16-2019 Blood count complete auto&auto difrntl wbc CBC, Platelets & Auto Diff (20062) [facility] Work Phone: Start: 03-16-2019 Urine albumin quantitative MICROALBUMIN: CREATININE RATIO (18238) AND (08839) [facility] Work Phone: Start: 03-16-2019 Microsomal antibodies each Anti TPO Antibody (29375) [facility] Work Phone: Start: 03-16-2019 TSH Qn TSH (THYROID STIMULATING HORMONE) (59496) [facility] Work Phone: [facility] Work Phone: [facility] Work Phone: [facility] Work Phone[facility] Work Phone[facility] Work Phone: [facility] Work Phone: [facility] Work Phone: Immunizations Immunization Date Immunization Notes Care Provider Addy acuña 12-16-2018 tetanus toxoid, redu duane diphtheria toxoid, and acellular pertussis vaccine, adsorbed Arcelia Huston [facility] Work Phone: Payers Date Payer Category Payer Unknown [id number] Unknown [id number] Unknown [employer] Social History Date Type Detail Facility Alcohol Use Alcohol Use [facility] Work Phone: Progress note 08-30-2021 Note Date & Type Note Facility 08-30-2021 Note HNO ID: [id number] Author: Liz Rey APRN.RADIATION MONITOR Service: ? Author Type: Nurse Practitioner Type: Progress Notes Filed: 08/30/2021 7:47 PM Note Text: SUBJECTIVE Reggie Miller is a 26 year old female who presents with 3 days of symptoms that are stable. Symptoms include: Fever (?100.4F): Yes-one day but now resolved. or Chills: Yes Cough: Yes Shortness of breath: No or Difficulty breathing: No Fatigue: No Muscle aches: Yes Headache: No New loss of smell or taste: No Sore throat: Yes-rates 8/10 at night, better in daytime. Nasal congestion: Yes or Rhinorrhea: No Nausea: No or Vomiting: No Diarrhea: No OTC meds/remedies that patient has tried: OTC cold medicine. High risk category assessment No high risk factors Exposures: Sick contacts? No Family or close contacts with confirmed/probable COVID-19 in last 14 days? No She reports that she has never smoked. She has never used smokeless tobacco. BP 128/80 Pulse 67 Temp 37 ?C (98.6 ?F) (Tympanic) Resp 18 Wt 77.7 kg (171 lb 3.2 oz) LMP 02/11/2017 SpO2 98% BMI 26.81 kg/m? PAST MEDICAL HISTORY Diagnosis Date - NEGATIVE MEDICAL HISTORY PAST SURGICAL HISTORY Procedure Laterality Date - OTHER removal of cyst on bridge of nose ALLERGIES Codeine, Sulfa (Sulfonamide Antibiotics), and Tylenol [Acetaminophen] MEDICATIONS Etonogestrel-Ethinyl Estradiol (NUVARING) 0.12-0.015 mg/24 hr vaginal ring Insert vaginally and leave in place for 3 consecutive weeks, then remove for 1 week. Indications: Contraception FAMILY HISTORY Problem Relation Age of Onset - None Mother - None Father - Thyroid Maternal Grandmother - Cancer Maternal Grandmother - Stroke Paternal Grandfather Social History Tobacco Use - Smoking status: Never Smoker - Smokeless tobacco: Never Used Substance Use Topics - Alcohol use: Yes Comment: occ - Drug use: No OBJECTIVE Physical Exam Vitals and nursing note reviewed. HENT: Mouth/Throat: Mouth: Mucous membranes are moist. Pharynx: Oropharynx is clear. No oropharyngeal exudate or posterior oropharyngeal erythema. Cardiovascular: Rate and Rhythm: Normal rate and regular rhythm. Heart sounds: Normal heart sounds. Pulmonary: Effort: Pulmonary effort is normal. No respiratory distress. Breath sounds: Normal breath sounds. No wheezing or rales. Lymphadenopathy: Cervical: No cervical adenopathy. Skin: General: Skin is warm and dry. Findings: No erythema or rash. Neurological: Mental Status: She is alert. ASSESSMENT/PLAN ASSESSMENT/PLAN: 1. Sore throat - ICD9: 462, ICD10: J02.9 (primary diagnosis) - suspect viral - Alere Strep Test NEGATIVE, no culture pending - Discussed supportive care treatment with fluids, rest and analgesia. - STREP A MOLECULAR (POC) 2. Suspected COVID-19 virus infection - ICD9: V01.79, ICD10: Z20.822 - COVID WITH FLUA+B, ROUTINE Medical Decision Making: Problems: Moderate: Acute illness with systemic symptoms Data: Unique test result(s) reviewed: 1 Unique test(s) ordered: 3+ Risk: Minimal: Minimal risk from testing/treatment Medical Decision Making Level: 4 - Moderate Liz Rey APRN.CNP - Meets symptom-based criteria for testing and is low risk. - COVID swab collected at time of office visit - Instructed to isolate pending test results - Discussed symptom monitoring and supportive care - Red flag symptoms requiring follow up discussed This patient encounter involved the screening or treatment of novel coronavirus infection (COVID-19). [facility] Instructions Note Date & Type Note Facility [facility]; [facility] Work Phone: Summary Purpose Family History No Family History Records FoundUnknown Family Member Name Dates Details Father Comments:high chol Status:Active Maternal Grandfather Comments:past smoker, HTn, h igh chol, mult myeloma, heart bypass, carotid artery Status:Active Maternal Grandmother Comments:past smoker, HTN, h igh chol, uterus/vulva/thyroid cancer, carotid artery leg bypass rynards disease Status:Active Mother Comments:high chol Status:Active Paternal Grandfather Comments:past smoker, HTN, h igh chol, heart bypass, stroke Status:Active Paternal Grandmother Comments:smoker, high chol Status:Active Unknown Family Member Name Dates Details Father Comments:high chol Status:Active Maternal Grandfather Comments:past smoker, HTn, h igh chol, mult myeloma, heart bypass, carotid artery Status:Active Maternal Grandmother Comments:past smoker, HTN, h igh chol, uterus/vulva/thyroid cancer, carotid artery leg bypass rynards disease Status:Active Mother Comments:high chol Status:Active Paternal Grandfather Comments:past smoker, HTN, h igh chol, heart bypass, stroke Status:Active Paternal Grandmother Comments:smoker, high chol Status:Active Unknown Family Member Name Dates Details Father Comments:high chol Status:Active Maternal Grandfather Comments:past smoker, HTn, h igh chol, mult myeloma, heart bypass, carotid artery Status:Active Maternal Grandmother Comments:past smoker, HTN, h igh chol, uterus/vulva/thyroid cancer, carotid artery leg bypass rynards disease Status:Active Mother Comments:high chol Status:Active Paternal Grandfather Comments:past smoker, HTN, h igh chol, heart bypass, stroke Status:Active Paternal Grandmother Comments:smoker, high chol Status:Active Unknown Family Member Name Dates Details Father Comments:high chol Status:Active Maternal Grandfather Comments:past smoker, HTn, h igh chol, mult myeloma, heart bypass, carotid artery Status:Active Maternal Grandmother Comments:past smoker, HTN, h igh chol, uterus/vulva/thyroid cancer, carotid artery leg bypass rynards disease Status:Active Mother Comments:high chol Status:Active Paternal Grandfather Comments:past smoker, HTN, h igh chol, heart bypass, stroke Status:Active Paternal Grandmother Comments:smoker, high chol Status:Active Unknown Family Member Name Dates Details Father Comments:high chol Status:Active Maternal Grandfather Comments:past smoker, HTn, h igh chol, mult myeloma, heart bypass, carotid artery Status:Active Maternal Grandmother Comments:past smoker, HTN, h igh chol, uterus/vulva/thyroid cancer, carotid artery leg bypass rynards disease Status:Active Mother Comments:high chol Status:Active Paternal Grandfather Comments:past smoker, HTN, h igh chol, heart bypass, stroke Status:Active Paternal Grandmother Comments:smoker, high chol Status:Active Unknown Family Member Name Dates Details Father Comments:high chol Status:Active Maternal Grandfather Comments:past smoker, HTn, h igh chol, mult myeloma, heart bypass, carotid artery Status:Active Maternal Grandmother Comments:past smoker, HTN, h igh chol, uterus/vulva/thyroid cancer, carotid artery leg bypass rynards disease Status:Active Mother Comments:high chol Status:Active Paternal Grandfather Comments:past smoker, HTN, h igh chol, heart bypass, stroke Status:Active Paternal Grandmother Comments:smoker, high chol Status:Active Unknown Family Member Name Dates Details Father Comments:high chol Status:Active Maternal Grandfather Comments:past smoker, HTn, h igh chol, mult myeloma, heart bypass, carotid artery Status:Active Maternal Grandmother Comments:past smoker, HTN, h igh chol, uterus/vulva/thyroid cancer, carotid artery leg bypass rynards disease Status:Active Mother Comments:high chol Status:Active Paternal Grandfather Comments:past smoker, HTN, h igh chol, heart bypass, stroke Status:Active Paternal Grandmother Comments:smoker, high chol Status:Active Unknown Family Member Name Dates Details Father Comments:high chol Status:Active Maternal Grandfather Comments:past smoker, HTn, h igh chol, mult myeloma, heart bypass, carotid artery Status:Active Maternal Grandmother Comments:past smoker, HTN, h igh chol, uterus/vulva/thyroid cancer, carotid artery leg bypass rynards disease Status:Active Mother Comments:high chol Status:Active Paternal Grandfather Comments:past smoker, HTN, h igh chol, heart bypass, stroke Status:Active Paternal Grandmother Comments:smoker, high chol Status:Active Unknown Family Member Name Dates Details Father Comments:high chol Status:Active Maternal Grandfather Comments:past smoker, HTn, h igh chol, mult myeloma, heart bypass, carotid artery Status:Active Maternal Grandmother Comments:past smoker, HTN, h igh chol, uterus/vulva/thyroid cancer, carotid artery leg bypass rynards disease Status:Active Mother Comments:high chol Status:Active Paternal Grandfather Comments:past smoker, HTN, h igh chol, heart bypass, stroke Status:Active Paternal Grandmother Comments:smoker, high chol Status:Active Unknown Family Member Name Dates Details Father Comments:high chol Status:Active Maternal Grandfather Comments:past smoker, HTn, h igh chol, mult myeloma, heart bypass, carotid artery Status:Active Maternal Grandmother Comments:past smoker, HTN, h igh chol, uterus/vulva/thyroid cancer, carotid artery leg bypass rynards disease Status:Active Mother Comments:high chol Status:Active Paternal Grandfather Comments:past smoker, HTN, h igh chol, heart bypass, stroke Status:Active Paternal Grandmother Comments:smoker, high chol Status:Active Unknown Family Member Name Dates Details Father Comments:high chol Status:Active Maternal Grandfather Comments:past smoker, HTn, h igh chol, mult myeloma, heart bypass, carotid artery Status:Active Maternal Grandmother Comments:past smoker, HTN, h igh chol, uterus/vulva/thyroid cancer, carotid artery leg bypass rynards disease Status:Active Mother Comments:high chol Status:Active Paternal Grandfather Comments:past smoker, HTN, h igh chol, heart bypass, stroke Status:Active Paternal Grandmother Comments:smoker, high chol Status:Active Unknown Family Member Name Dates Details Father Comments:high chol Status:Active Maternal Grandfather Comments:past smoker, HTn, h igh chol, mult myeloma, heart bypass, carotid artery Status:Active Maternal Grandmother Comments:past smoker, HTN, h igh chol, uterus/vulva/thyroid cancer, carotid artery leg bypass rynards disease Status:Active Mother Comments:high chol Status:Active Paternal Grandfather Comments:past smoker, HTN, h igh chol, heart bypass, stroke Status:Active Paternal Grandmother Comments:smoker, high chol Status:Active Advance Directives No Advanced Directives Records Found Name Dates Details Immunization Registry [place] - Effective on 03/14/2019. Expiration date unspecified Effective:14-Mar-2019 Name Dates Details Immunization Registry [place] - Effective on 03/14/2019. Expiration date unspecified Effective:14-Mar-2019 Name Dates Details Immunization Registry [place] - Effective on 03/14/2019. Expiration date unspecified Effective:14-Mar-2019 Name Dates Details Immunization Registry [place] - Effective on 03/14/2019. Expiration date unspecified Effective:14-Mar-2019 Name Dates Details Immunization Registry [place] - Effective on 03/14/2019. Expiration date unspecified Effective:14-Mar-2019 Name Dates Details Immunization Registry [place] - Effective on 03/14/2019. Expiration date unspecified Effective:14-Mar-2019 Name Dates Details Immunization Registry [place] - Effective on 03/14/2019. Expiration date unspecified Effective:14-Mar-2019 Name Dates Details Immunization Registry [place] - Effective on 03/14/2019. Expiration date unspecified Effective:14-Mar-2019 Name Dates Details Immunization Registry [place] - Effective on 03/14/2019. Expiration date unspecified Effective:14-Mar-2019 Instructions Name Dates Details How to access health informa tion online Indication:BMI 26.0-26.9,adult Start:16-Mar-2019 Instruction Type:Patient Education How to access health informa tion online - Detail Indication:BMI 26.0-26.9,adult Start:16-Mar-2019 Instruction Type:Patient Education Patient Instructions Indication:BMI 26.0-26.9,adult Start:16-Mar-2019 Instruction Type:Provider Instructions for Treatment Name Dates Details How to access health informa tion online Indication:BMI 26.0-26.9,adult Start:16-Mar-2019 Instruction Type:Patient Education How to access health informa tion online - Detail Indication:BMI 26.0-26.9,adult Start:16-Mar-2019 Instruction Type:Patient Education Patient Instructions Indication:BMI 26.0-26.9,adult Start:16-Mar-2019 Instruction Type:Provider Instructions for Treatment Name Dates Details How to access health informa tion online Indication:BMI 26.0-26.9,adult Start:16-Mar-2019 Instruction Type:Patient Education How to access health informa tion online - Detail Indication:BMI 26.0-26.9,adult Start:16-Mar-2019 Instruction Type:Patient Education Patient Instructions Indication:BMI 26.0-26.9,adult Start:16-Mar-2019 Instruction Type:Provider Instructions for Treatment Name Dates Details How to access health informa tion online Indication:BMI 26.0-26.9,adult Start:16-Mar-2019 Instruction Type:Patient Education How to access health informa tion online - Detail Indication:BMI 26.0-26.9,adult Start:16-Mar-2019 Instruction Type:Patient Education Patient Instructions Indication:BMI 26.0-26.9,adult Start:16-Mar-2019 Instruction Type:Provider Instructions for Treatment Name Dates Details How to access health informa tion online Indication:BMI 26.0-26.9,adult Start:16-Mar-2019 Instruction Type:Patient Education How to access health informa tion online - Detail Indication:BMI 26.0-26.9,adult Start:16-Mar-2019 Instruction Type:Patient Education Patient Instructions Indication:BMI 26.0-26.9,adult Start:16-Mar-2019 Instruction Type:Provider Instructions for Treatment Name Dates Details How to access health informa tion online - Detail Indication:Nonsmoker Start:06-Jun-2019 Instruction Type:Patient Education How to access health informa tion online Indication:Nonsmoker Start:06-Jun-2019 Instruction Type:Patient Education Patient Instructions Indication:BMI 25.0-25.9,adult Start:06-Jun-2019 Instruction Type:Provider Instructions for Treatment How to access health informa tion online Indication:BMI 26.0-26.9,adult Start:16-Mar-2019 Instruction Type:Patient Education How to access health informa tion online - Detail Indication:BMI 26.0-26.9,adult Start:16-Mar-2019 Instruction Type:Patient Education Patient Instructions Indication:BMI 26.0-26.9,adult Start:16-Mar-2019 Instruction Type:Provider Instructions for Treatment Name Dates Details How to access health informa tion online Indication:Nonsmoker Start:25-May-2020 Instruction Type:Patient Education How to access health informa tion online - Detail Indication:Nonsmoker Start:25-May-2020 Instruction Type:Patient Education Patient Instructions Indication:Nonsmoker Start:25-May-2020 Instruction Type:Provider Instructions for Treatment How to access health informa tion online Indication:Nonsmoker Start:30-Dec-2019 Instruction Type:Patient Education How to access health informa tion online - Detail Indication:Nonsmoker Start:30-Dec-2019 Instruction Type:Patient Education Patient Instructions Indication:Nonsmoker Start:30-Dec-2019 Instruction Type:Provider Instructions for Treatment How to access health informa tion online - Detail Indication:Nonsmoker Start:06-Jun-2019 Instruction Type:Patient Education How to access health informa tion online Indication:Nonsmoker Start:06-Jun-2019 Instruction Type:Patient Education Patient Instructions Indication:BMI 25.0-25.9,adult Start:06-Jun-2019 Instruction Type:Provider Instructions for Treatment How to access health informa tion online Indication:BMI 26.0-26.9,adult Start:16-Mar-2019 Instruction Type:Patient Education How to access health informa tion online - Detail Indication:BMI 26.0-26.9,adult Start:16-Mar-2019 Instruction Type:Patient Education Patient Instructions Indication:BMI 26.0-26.9,adult Start:16-Mar-2019 Instruction Type:Provider Instructions for Treatment Name Dates Details How to access health informa tion online Indication:Nonsmoker Start:25-May-2020 Instruction Type:Patient Education How to access health informa tion online - Detail Indication:Nonsmoker Start:25-May-2020 Instruction Type:Patient Education Patient Instructions Indication:Nonsmoker Start:25-May-2020 Instruction Type:Provider Instructions for Treatment How to access health informa tion online Indication:Nonsmoker Start:30-Dec-2019 Instruction Type:Patient Education How to access health informa tion online - Detail Indication:Nonsmoker Start:30-Dec-2019 Instruction Type:Patient Education Patient Instructions Indication:Nonsmoker Start:30-Dec-2019 Instruction Type:Provider Instructions for Treatment How to access health informa tion online - Detail Indication:Nonsmoker Start:06-Jun-2019 Instruction Type:Patient Education How to access health informa tion online Indication:Nonsmoker Start:06-Jun-2019 Instruction Type:Patient Education Patient Instructions Indication:BMI 25.0-25.9,adult Start:06-Jun-2019 Instruction Type:Provider Instructions for Treatment How to access health informa tion online Indication:BMI 26.0-26.9,adult Start:16-Mar-2019 Instruction Type:Patient Education How to access health informa tion online - Detail Indication:BMI 26.0-26.9,adult Start:16-Mar-2019 Instruction Type:Patient Education Patient Instructions Indication:BMI 26.0-26.9,adult Start:16-Mar-2019 Instruction Type:Provider Instructions for Treatment Name Dates Details How to access health informa tion online Indication:Nonsmoker Start:25-May-2020 Instruction Type:Patient Education How to access health informa tion online - Detail Indication:Nonsmoker Start:25-May-2020 Instruction Type:Patient Education Patient Instructions Indication:Nonsmoker Start:25-May-2020 Instruction Type:Provider Instructions for Treatment How to access health informa tion online Indication:Nonsmoker Start:30-Dec-2019 Instruction Type:Patient Education How to access health informa tion online - Detail Indication:Nonsmoker Start:30-Dec-2019 Instruction Type:Patient Education Patient Instructions Indication:Nonsmoker Start:30-Dec-2019 Instruction Type:Provider Instructions for Treatment How to access health informa tion online - Detail Indication:Nonsmoker Start:06-Jun-2019 Instruction Type:Patient Education How to access health informa tion online Indication:Nonsmoker Start:06-Jun-2019 Instruction Type:Patient Education Patient Instructions Indication:BMI 25.0-25.9,adult Start:06-Jun-2019 Instruction Type:Provider Instructions for Treatment How to access health informa tion online Indication:BMI 26.0-26.9,adult Start:16-Mar-2019 Instruction Type:Patient Education How to access health informa tion online - Detail Indication:BMI 26.0-26.9,adult Start:16-Mar-2019 Instruction Type:Patient Education Patient Instructions Indication:BMI 26.0-26.9,adult Start:16-Mar-2019 Instruction Type:Provider Instructions for Treatment Name Dates Details How to access health informa tion online Indication:Nonsmoker Start:25-May-2020 Instruction Type:Patient Education How to access health informa tion online - Detail Indication:Nonsmoker Start:25-May-2020 Instruction Type:Patient Education Patient Instructions Indication:Nonsmoker Start:25-May-2020 Instruction Type:Provider Instructions for Treatment How to access health informa tion online Indication:Nonsmoker Start:30-Dec-2019 Instruction Type:Patient Education How to access health informa tion online - Detail Indication:Nonsmoker Start:30-Dec-2019 Instruction Type:Patient Education Patient Instructions Indication:Nonsmoker Start:30-Dec-2019 Instruction Type:Provider Instructions for Treatment How to access health informa tion online - Detail Indication:Nonsmoker Start:06-Jun-2019 Instruction Type:Patient Education How to access health informa tion online Indication:Nonsmoker Start:06-Jun-2019 Instruction Type:Patient Education Patient Instructions Indication:BMI 25.0-25.9,adult Start:06-Jun-2019 Instruction Type:Provider Instructions for Treatment How to access health informa tion online Indication:BMI 26.0-26.9,adult Start:16-Mar-2019 Instruction Type:Patient Education How to access health informa tion online - Detail Indication:BMI 26.0-26.9,adult Start:16-Mar-2019 Instruction Type:Patient Education Patient Instructions Indication:BMI 26.0-26.9,adult Start:16-Mar-2019 Instruction Type:Provider Instructions for Treatment Name Dates Details How to access health informa tion online Indication:Nonsmoker Start:25-May-2020 Instruction Type:Patient Education How to access health informa tion online - Detail Indication:Nonsmoker Start:25-May-2020 Instruction Type:Patient Education Patient Instructions Indication:Nonsmoker Start:25-May-2020 Instruction Type:Provider Instructions for Treatment How to access health informa tion online Indication:Nonsmoker Start:30-Dec-2019 Instruction Type:Patient Education How to access health informa tion online - Detail Indication:Nonsmoker Start:30-Dec-2019 Instruction Type:Patient Education Patient Instructions Indication:Nonsmoker Start:30-Dec-2019 Instruction Type:Provider Instructions for Treatment How to access health informa tion online - Detail Indication:Nonsmoker Start:06-Jun-2019 Instruction Type:Patient Education How to access health informa tion online Indication:Nonsmoker Start:06-Jun-2019 Instruction Type:Patient Education Patient Instructions Indication:BMI 25.0-25.9,adult Start:06-Jun-2019 Instruction Type:Provider Instructions for Treatment How to access health informa tion online Indication:BMI 26.0-26.9,adult Start:16-Mar-2019 Instruction Type:Patient Education How to access health informa tion online - Detail Indication:BMI 26.0-26.9,adult Start:16-Mar-2019 Instruction Type:Patient Education Patient Instructions Indication:BMI 26.0-26.9,adult Start:16-Mar-2019 Instruction Type:Provider Instructions for Treatment Additional Source Comments INFORMATION SOURCE (unrecogn ized section and content) DATE CREATED AUTHOR AUTHOR'S GURINDER FERRIS 10/14/2021 [facility] FOR RECORDS PERTAINING TO PATIENTS WHO ARE OR HAVE BEEN ENROLLED IN A CHEMICAL DEPENDENCY/SUBSTANCEABUSE PROGRAM, SOME INFORMATION MAY BE OMITTED. This clinical summary was aggregated from multiple sources. Caution should be exercised in using it in the provision of clinical care. This summary normalizes information from multiple sources, and as a consequence, information in this document may materially change the coding, format and clinical context of patient data. In addition, data may be omitted in some cases. CLINICAL DECISIONS SHOULD BE BASED ON THE PRIMARY CLINICAL RECORDS. [employer] provides no warranty or guarantee of the accuracy or completeness of information in this document.
[2023-10-05 22:06] LABS: Chlamydia By Nucleic Acid AMP Negative (Negative); Gonococcus By Nucleic Acid AMP Negative (Negative)
[2023-10-07 12:49] LABS: HPV Reflexed? NOT INDICATED
== END | disposition home or self-care (01) ==
LOC: LABSPEC 11:40
PROVIDERS: PCP Nurse Practitioner; Referring Provider Advanced Practice Midwife; Visit Provider Advanced Practice Midwife
DX: Z34.90 Encounter for supervision of normal pregnancy, unspecified, unspecified trimester (principal)
CPT/HCPCS: 87086; 87491; 87591; 88175; G0145

== ENCOUNTER 2023-10-16 09:55 | Day surgery (SDC) | payer OTHER, SELFPAY ==
[2023-10-16] VITALS (7 sets, daily range): BP systolic 97–118; BP diastolic 52–72; PULSE 60–73; RESP 14–18; TEMP 36.7–36.8; O2SAT 18–100; BMI 25.3
--- NOTE | 2023-10-16 | POC_PTH ---
PATIENT: REGGIE GALVAN LOC: [facility] [place] U#:[id number] AGE/SX: 28/F ROOM: RE10/16/[address]: Dr. eMlida Alvarez MD : 1995 BED: DIS: 10/16/2023 SPEC #: [id number] RECD: 10/16/23 16:39 STATUS: CHRIS REAren #: [id number] MAYO: 10/16/23 00:[address]: Melida Alvarez DEPT: SURGICAL PATHOLOGY RECD BY: Steve Borden ENTERED: 10/19/23 08:57 SP TYPE: PROD CONC OTHR DR: Cait Ventura, MEASUREMENT TECHNICIAN-Jess Tissues: Product of conception, NOS Procedures: Surgery Specimen Level IV HEADER OPERATION: Dilation and Curettings, suction PRE-OP DIAGNOSIS: Missed TISSUE SUBMITTED: Products of conception MICROSCOPIC DIAGNOSIS Products of conception, dilation and curettage: [place], gestational endometrium and immature chorionic villi (products of conception), clinically incomplete . BILL: 10/20/2023 MICROSCOPIC DESCRIPTION Slides are reviewed. GROSS DESCRIPTION Received in fixative is one container labeled with the patient's name and designated Products of conception. The specimen consists of multiple fragments of avila-pink soft tissue that in aggregate measure 7.0 x 6.0 x 2.0 cm. tissue is not identified. Embossing Press Operator tissue is submitted in three cassettes. BILL/ 10/19/23 TC:3 CPT:49017
[2023-10-16] MEDS: Lactated Ringers 1,000 ML 15 ML IV (10:44)
--- NOTE | 2023-10-16 12:11 | HP.PCM_ITS ---
HPI - General HPI Narrative REGGIE GALVAN, is a 28 F who presents with perisistent retained POC after failed cytotec. she denies any heavy clots only mild bleeding. repeat US shows retained POC no FHT seen enlarged yolk sac. [facility] Medical History Chronic hypertension Gestational HTN Gestational thrombocytopenia Kidney infection Liver hemangioma Home Medications docosahexaenoic acid 200 mg capsule ( DHA) mg PO 09/25/23 [History Last Taken 10/15/23] misoprostol 200 mcg tablet 800 mcg PO DAILY 10/16/23 [History Last Taken 10/11/23] Allergy/AdvReac Type Severity Reaction Status Date / Time codeine Allergy Intermediate Nausea Verified 10/15/23 12:28 Sulfa (Sulfonamide Allergy Mild Nausea Verified 10/15/23 12:28 Antibiotics) Family History Mother Hyperlipidemia Father Hyperlipidemia Surgical History History of removal of cyst (~2013) [place] teeth removed Social History adopted: No household members: spouse and children number of children: 2 current occupational status: employed 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 [place] current occupational exposures/hazards: No pets and animals: No history of recent travel: Yes details: - June out of state: Yes out of country: No sexually active: Yes Smoking Status: Never smoker alcohol intake: never substance use type: does not use well-balanced diet: daily or most days caffeine: No eating out: 1-3 times/week during the past year weight has: remained stable what type of physical activity do you participate in: other details: 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 seatbelt use: always do you feel safe at home: Yes additional social history: : [employer] ROS Constitutional Constitutional: Reports systems reviewed and no addt'l complaints, except as documented; Denies as per HPI, change in weight, fatigue, fever(s), malaise, weakness or other Eyes Eyes: Reports systems reviewed and no addt'l complaints, except as documented; Denies as per HPI, change in vision or other ENT HEENT: Reports systems reviewed and no addt'l complaints, except as documented Respiratory/Chest Respiratory/Chest: Reports systems reviewed and no addt'l complaints, except as documented Gastrointestinal Gastrointestinal: Reports systems reviewed and no addt'l complaints, except as documented and as per HPI Genitourinary Genitourinary: Reports as per HPI Musculoskeletal Musculoskeletal: Reports systems reviewed and no addt'l complaints, except as documented Neurologic Neurologic: Reports systems reviewed and no addt'l complaints, except as documented Psychiatric Psychiatric: Reports systems reviewed and no addt'l complaints, except as documented Endocrine Endocrinology: Reports systems reviewed and no addt'l complaints, except as documented Hematologic/Lymphatic Hematologic/Lymphatic: Reports systems reviewed and no addt'l complaints, except as documented Vital Signs Vital Signs Vital Signs: 10/16/23 10:45 10/16/23 10:45 Temperature 98.1 F Temperature Source Temporal Pulse Rate 73 Respiratory Rate 18 Respiratory Pattern Normal Blood Pressure 118/72 Blood Pressure Mean 87 Blood Pressure Source Monitor Blood Pressure Position Semi-Fowlers Blood Pressure Location Right Arm Pulse Ox 18 Oxygen Delivery Method Room Air Weight Weight: 162 lb Body Mass Index (BMI) 25.3 Physical Exam Const alert, oriented x3 and no apparent distress HEENT normocephalic Head and Scalp: atraumatic Eyes EOMs intact bilaterally and conjunctivae normal Neck full ROM, no lymphadenopathy, supple and thyroid normal General: trachea midline Lymph Lymphatic: no lymphadenopathy noted Resp normal respiratory effort, no retractions, no use of accessory muscles and clear to auscultation bilaterally Cardio regular rhythm GI normal to inspection, nondistended, normoactive bowel sounds, soft to palpation, non-distended and no masses Inspection: Negative for abdominal distention Back/Spine no CVA tenderness Extremity normal to inspection Skin no rashes or lesions noted Neuro moves all extremities and deep tendon reflexes 2+ bilaterally Psych mental status grossly normal Assessment & Plan Assessment/Plan (1) Missed : PLAN: Plan After discussing the patient's diagnosis and treatment plan options, patient wishes to proceed with surgical management. I have discussed with the patient the risks, benefits, and alternatives of the procedure which include but are not limited to risks of anesthesia, bleeding, infection, possible damage to bowel, bladder, or surrounding vasculature which could lead to additional surgery to evaluate any complications. Patient agrees to procedure and wishes to proceed. ACOG/uptodate references given for additional information regarding procedure.
--- NOTE | 2023-10-16 12:13 | PCM.OPRPT ---
Problems Associated Problem List Diagnoses (1) Missed : Report of Operation Date of Procedure: 10/16/23 Pre-Operative Diagnosis: see problem list Post-Operative Diagnosis: same Surgery/Procedure Performed:: Suction dilation and curettage Description of Surgical Findings:: no FHT present, Nonviable 9 weeks measuring 6 weeks Surgeon: Melida Alvarez destination imagination coordinator: None Type of Anesthesia: Local MAC Special Medications: none Specimen's removed: POC Drains: none Estimated Blood Loss (mL): 50 Fluids Replaced: crystalloid Description of Procedure: Patient was taken to the operating room and placed under MAC local anesthesia. She was prepped and draped in the normal sterile fashion the dorsal lithotomy position. Bladder was drained of clear urine and anterior lip of the cervix was grasped and the uterus sounded to 10 cm. Cervix was progressively dilated to allow passage of a 10mm suction curette. Progressive passes were made removing the retained products of conception without complication. Sharp curettage confirmed complete removal of the retained products. All instruments were removed from the vagina and excellent hemostasis was noted and the patient was taken to recovery in stable condition. Grafts/Implants Used: none Procedure Start Time: 12:41 Procedure Stop Time: 12:50 Complications none Admit VTE Documentation VTE Present on Admission: No VTE Mechan Device Prophylaxis: SCD's Procedures Urinary/Genital [id number]: [id number] Trmt of incomplete Ab, any TM
--- NOTE | 2023-10-16 12:15 | DCINST_ITS ---
Discharge Instructions Diet Discharge Diet: No restrictions Activity Discharge Activity: Return to Normal Activity, May Shower and May Take a Tub Bath (after 1 week) May resume sexual activity in: 1-2 weeks Weight Bearing Status: Weight bearing as tolerated Lifting Restrictions: none Dressing / Incision Call your doctor if you observe: Fever of 101 or Higher, Using more than 1 pad per hour, Shortness of breath and Uncontrolled pain Follow Up Care Please Follow Up With: Melida Alvarez MD When: Call [phone] to schedule appointment. Test Results: Test results from this visit will be discussed in further detail at your follow- up appointment, if applicable. Discharge Plan Admission Attending Provider: Melida Alvarez Primary Care Provider: Cait Ventura Discharge Orders/Prescriptions Prescriptions: No Action DHA 200 mg capsule PO misoprostol 200 mcg tablet 800 mcg PO DAILY Referrals / Follow Up: Cait Ventura, BERNY-C [Primary Care Provider] - Disposition Disposition (needs filled in before D/C Order can be placed): Home, Self Care
[2023-10-16] MEDS: Lidocaine 1% (20 ml mdv) 20 ML Vial (12:41)
[2023-10-16] MEDS: Doxycycline 100 MG CAPSULE PO (13:51)
== END 2023-10-16 14:08 | disposition home or self-care (01) ==
LOC: SDC 10:00 → AC 10:02
PROVIDERS: PCP Nurse Practitioner Family; Referring Provider Obstetrics & Gynecology; Visit Provider Obstetrics & Gynecology
PROC: (CPT 59820; principal; 2023-10-16 11:45)
DX: O02.1 Missed abortion (principal); I10 Essential (primary) hypertension; Z79.899 Other long term (current) drug therapy
CPT/HCPCS: 59820; 01965; 88305; J7120; J2405

== ENCOUNTER → 2024-03-26 | Outpatient (CLI) | payer OTHER, SELFPAY ==
[2024-03-26 08:52] LABS: hCG Titer Quant., Serum 1407 mIU/mL (1-3)
== END | disposition home or self-care (01) ==
LOC: LAB 07:32
PROVIDERS: PCP Nurse Practitioner Family; Referring Provider Obstetrics & Gynecology; Visit Provider Obstetrics & Gynecology
DX: N91.2 Amenorrhea, unspecified (principal)
CPT/HCPCS: 36415; 84702

== ENCOUNTER → 2024-03-28 | Outpatient (CLI) | payer OTHER, SELFPAY ==
[2024-03-28 08:39] LABS: hCG Titer Quant., Serum 3614 mIU/mL (1-3)
== END | disposition home or self-care (01) ==
PROVIDERS: PCP Nurse Practitioner Family; Visit Provider Obstetrics & Gynecology
DX: N91.2 Amenorrhea, unspecified (principal)
CPT/HCPCS: 36415; 84702

== ENCOUNTER → 2024-04-29 | Outpatient (CLI) | payer OTHER, SELFPAY ==
[2024-05-02 21:07] LABS: Chlamydia By Nucleic Acid AMP Negative (Negative); Gonococcus By Nucleic Acid AMP Negative (Negative)
== END | disposition home or self-care (01) ==
LOC: LABSPEC 15:46
PROVIDERS: PCP Nurse Practitioner Family; Referring Provider Registered Nurse; Visit Provider Registered Nurse
DX: O09.90 Supervision of high risk pregnancy, unspecified, unspecified trimester (principal); Z3A.00 Weeks of gestation of pregnancy not specified
CPT/HCPCS: 87086; 87491; 87591

== ENCOUNTER → 2024-05-02 | Outpatient (CLI) | payer OTHER, SELFPAY ==
[2024-05-02 10:33] LABS: Absolute Lymphocyte Count 1.88 X10^3/uL (0.83-4.51); Basophil# 0.03 X10^3/uL; Basophil% 0.4 % (0-1); Eosinophil# 0.12 X10^3/uL; Eosinophils% 1.4 % (0-5); Hematocrit 38.8 % (37-47); Hemoglobin 12.4 g/dL (12.0-15.0); Lymphocyte # 1.88 X10^3/ul (0.83-4.51); Lymphocyte % 22.1 % (19-41); Mean Corpuscular Hgb 27.6 pg (27.0-32.0); Mean Corpuscular Volume 86.4 fL (81-99); Mean Platelet Vol. 12.4 fl (6.2-12.0); Monocyte# 0.49 X10^3/uL; Monocyte% 5.8 % (0-10); NRBC Flagged by Analyzer 0 % (0-5); Neutrophil # 5.97 X10^3/uL (2.7-7.7); Neutrophil % 69.9 % (47-70); Platelet Count 184 K/mm3 (150-450); RBC Distribution Width CV 13.2 % (11.6-14.6); RBC Distribution Width SD 41.1 fl (35.1-43.9); Red Blood Count 4.49 M/mm3 (4.2-5.4); White Blood Count 8.5 K/mm3 (4.4-11.0)
[2024-05-02 11:48] LABS: HIV - WCH Non-Reactive (Nonreactive); Hepatitis B Surface Antigen Non-Reactive (Nonreactive); Hepatitis C Antibody Non-Reactive (Nonreactive); Rubella IgG Reactive (Nonreactive); Syphilis Antibodies Non-reactive
== END | disposition home or self-care (01) ==
LOC: LAB 09:59
PROVIDERS: PCP Nurse Practitioner Family; Referring Provider Registered Nurse; Visit Provider Registered Nurse
DX: O09.90 Supervision of high risk pregnancy, unspecified, unspecified trimester (principal); Z3A.00 Weeks of gestation of pregnancy not specified
CPT/HCPCS: 36415; 85025; 86703; 86762; 86780; 86803; 86850; 86900; 86901; 87340